=== PATIENT | female | born 1995 | race Caucasian/White ===

== ENCOUNTER → 2017-11-21 08:22 | Outpatient (CLI) | payer OTHER, SELFPAY | PROVIDERS: Visit Provider Obstetrics & Gynecology | DX: Z12.4 Encounter for screening for malignant neoplasm of cervix (principal) ==

== ENCOUNTER → 2022-07-22 | Outpatient (CLI) | payer OTHER, SELFPAY ==
[2022-07-29 14:53] LABS: HPV Reflexed? NOT INDICATED
== END | disposition home or self-care (01) ==
LOC: LABSPEC 13:07
PROVIDERS: Referring Provider Obstetrics & Gynecology; Visit Provider Obstetrics & Gynecology
DX: Z12.4 Encounter for screening for malignant neoplasm of cervix (principal)
CPT/HCPCS: 88175; G0145

== ENCOUNTER → 2022-12-11 | Outpatient (CLI) | payer OTHER, SELFPAY | END | disposition home or self-care (01) | LOC: PAVLAB 15:08 | PROVIDERS: Referring Provider Nurse Practitioner Women's Health; Visit Provider Nurse Practitioner Women's Health | DX: N91.2 Amenorrhea, unspecified (principal) | CPT/HCPCS: 36415; 84702; 86850; 86900; 86901 ==

== ENCOUNTER → 2022-12-13 | Outpatient (CLI) | payer OTHER, SELFPAY ==
[2022-12-13 10:51] LABS: hCG Titer Quant., Serum 36622 mIU/mL (1-3)
== END | disposition home or self-care (01) ==
LOC: PAVLAB 09:26
PROVIDERS: Referring Provider Obstetrics & Gynecology; Visit Provider Obstetrics & Gynecology
DX: N91.2 Amenorrhea, unspecified (principal)
CPT/HCPCS: 36415; 84702

== ENCOUNTER → 2022-12-31 | Outpatient (CLI) | payer OTHER, SELFPAY ==
[2023-01-03 00:07] LABS: Chlamydia By Nucleic Acid AMP Negative (Negative)
[2023-01-03 08:29] LABS: Gonococcus By Nucleic Acid AMP Negative (Negative)
== END | disposition home or self-care (01) ==
PROVIDERS: Visit Provider Obstetrics & Gynecology
DX: Z34.90 Encounter for supervision of normal pregnancy, unspecified, unspecified trimester (principal)
CPT/HCPCS: 87086; 87491; 87591

== ENCOUNTER → 2023-01-30 | Outpatient (CLI) | payer OTHER, SELFPAY ==
[2023-01-30 11:01] LABS: Absolute Lymphocyte Count 2.04 X10^3/uL (0.83-4.51); Absolute Neutrophil Count 5.3 X10^3/uL (2.0-7.7); Basophil# 0.02 X10^3/uL; Basophil% 0.2 % (0-1); Eosinophil# 0.04 X10^3/uL; Eosinophils% 0.5 % (0-5); Hematocrit 38.9 % (37-47); Hemoglobin 13.5 g/dL (12.0-15.0); Lymphocyte # 2.04 X10^3/ul (0.83-4.51); Mean Corp Hgb Conc 34.7 g/dL (32-36); Mean Corpuscular Hgb 31.5 pg (27.0-32.0); Mean Corpuscular Volume 90.7 fL (81-99); Mean Platelet Vol. 9.1 fl (6.2-12.0); Monocyte# 0.69 X10^3/uL; Monocyte% 8.5 % (0-10); NRBC Flagged by Analyzer 0 % (0-5); Neutrophil # 5.33 X10^3/uL (2.7-7.7); Neutrophil % 65.3 % (47-70); Platelet Count 258 K/mm3 (150-450); RBC Distribution Width CV 12.8 % (11.6-14.6); RBC Distribution Width SD 41.9 fl (35.1-43.9); Red Blood Count 4.29 M/mm3 (4.2-5.4); White Blood Count 8.2 K/mm3 (4.4-11.0)
[2023-01-30 11:22] LABS: Glucose Challenge Gest 1H 50g 88 mg/dL (70-140)
[2023-01-30 12:06] LABS: HIV - WCH Non-Reactive (Nonreactive); Hepatitis B Surface Antigen Non-Reactive (Nonreactive); Hepatitis C Antibody Non-Reactive (Nonreactive); Rubella IgG Reactive (Nonreactive); Syphilis Antibodies Non-reactive
== END | disposition home or self-care (01) ==
LOC: PAVLAB 10:27
PROVIDERS: Referring Provider Obstetrics & Gynecology; Visit Provider Obstetrics & Gynecology
DX: O99.210 Obesity complicating pregnancy, unspecified trimester (principal)
CPT/HCPCS: 36415; 82950; 85025; 86703; 86762; 86780; 86803; 86850; 86900; 86901; 87340

== ENCOUNTER → 2023-05-13 | Outpatient (CLI) | payer OTHER, SELFPAY ==
[2023-05-13 13:17] LABS: Absolute Lymphocyte Count 1.53 X10^3/uL (0.83-4.51); Absolute Neutrophil Count 5.8 X10^3/uL (2.0-7.7); Basophil# 0.03 X10^3/uL; Basophil% 0.4 % (0-1); Eosinophil# 0.07 X10^3/uL; Eosinophils% 0.8 % (0-5); Hematocrit 38.3 % (37-47); Hemoglobin 12.9 g/dL (12.0-15.0); Lymphocyte # 1.53 X10^3/ul (0.83-4.51); Lymphocyte % 18.4 % (19-41); Mean Corp Hgb Conc 33.7 g/dL (32-36); Mean Corpuscular Hgb 31.9 pg (27.0-32.0); Mean Corpuscular Volume 94.8 fL (81-99); Mean Platelet Vol. 9.4 fl (6.2-12.0); Monocyte# 0.74 X10^3/uL; Monocyte% 8.9 % (0-10); NRBC Flagged by Analyzer 0 % (0-5); Neutrophil # 5.75 X10^3/uL (2.7-7.7); Neutrophil % 69.2 % (47-70); Platelet Count 232 K/mm3 (150-450); RBC Distribution Width CV 13.1 % (11.6-14.6); Red Blood Count 4.04 M/mm3 (4.2-5.4); White Blood Count 8.3 K/mm3 (4.4-11.0)
[2023-05-13 13:48] LABS: Glucose Challenge Gest 1H 50g 120 mg/dL (70-140)
[2023-05-13 14:20] LABS: HIV - WCH Non-Reactive (Nonreactive); Syphilis Antibodies Non-reactive
== END | disposition home or self-care (01) ==
LOC: LAB 12:29
PROVIDERS: Referring Provider Advanced Practice Midwife; Visit Provider Advanced Practice Midwife
DX: O44.42 Low lying placenta NOS or without hemorrhage, second trimester (principal); Z3A.00 Weeks of gestation of pregnancy not specified
CPT/HCPCS: 36415; 82950; 85025; 86703; 86780

== ENCOUNTER → 2023-07-11 | Outpatient (CLI) | payer OTHER, SELFPAY | END | disposition home or self-care (01) | PROVIDERS: Visit Provider Obstetrics & Gynecology | DX: O09.90 Supervision of high risk pregnancy, unspecified, unspecified trimester (principal); Z3A.00 Weeks of gestation of pregnancy not specified | CPT/HCPCS: 87081 ==

== ENCOUNTER 2023-07-21 16:26 | Outpatient (CLI) | payer OTHER, SELFPAY ==
[2023-07-21 16:57] VITALS: PULSE 75; O2SAT 98
[2023-07-21 16:59] VITALS: BP 131/81
[2023-07-21 17:00] VITALS: PULSE 74; O2SAT 97; BMI 41.5
--- NOTE | 2023-07-23 12:35 | OB.TRI.HP_ITS ---
HPI - General General Date of Admission: 07/21/23 Date of Service: 07/21/23 Chief Complaint: elevated BP HPI Narrative VANDANA MYERS, is a 27 F who presents at 38 weeks +2 with increased itching on palms on hands and soles of feet especially at night and in the morning. does resolve with elevating feet. is on day 6 of covid infection. +FM, no vb/ctx/lof. Maternal Data Information KALA Calculator Estimated Delivery Date Method Current WG Current Estimate 08/02/23 LMP (Certain) 38w 4d PFSH PFSH Medical History Anxiety Positive self-administered antigen test for COVID-19 Home Medications multivit-min no.71-iron fum 28 mg-folate no.1 1 mg-dha 300 mg capsule (PNV- [place]) 1 cap PO DAILY 12/27/22 [History Last Taken Unknown] famotidine 20 mg tablet (Pepcid AC) 20 mg PO BID PRN heartburn 07/21/23 [History Last Taken Unknown] Allergy/AdvReac Type Severity Reaction Status Date / Time No Known Allergies Allergy Verified 07/21/23 16:55 Family History Grandfather COPD (chronic obstructive pulmonary disease) CAD (coronary artery disease) Maternal Family history of brain aneurysm, Onset Age: 42 Paternal Grandmother Parkinson disease, Onset Age: 70 Maternal Surgical History S/P left knee surgery Social History adopted: No household members: spouse current occupational status: employed 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 current occupational exposures/hazards: No pets and animals: Yes pets and animals: dog(s) history of recent travel: Yes ([place] in October) out of state: Yes out of country: No sexually active: Yes Smoking Status: Never smoker alcohol intake: current alcohol intake frequency: holidays/special occasions only details: not while substance use type: does not use well-balanced diet: about half the time caffeine: No eating out: 1-3 times/week during the past year weight has: remained stable what type of physical activity do you participate in: aerobics frequency: 1-2 times per week duration: 45-60 minutes/day kalen/yazdanism: Mu-Ism seatbelt use: always do you feel safe at home: Yes 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: 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 [employer] History 1 Elective abortions Hx Para 0 Spontaneous abortions Hx # Term Pregnancies Ectopic pregnancies Hx # Pregnancies Multiple births # of living children Visit Details Expected Delivery Route/Plan Labor Preferences- CB/BF classes: scheduled labor support person: Eliseo labor intervention preferences: [] pain management options preferred: epidural cut cord/dad catch: maybe : yes PP control planned: discussed discussed possible routes of delivery and associated risks: [] special requests: [] Plans Covid status: vaccinated Flu vaccine: vaccinated 2021 Tdap vaccine: given Rhogam: na LARC form signed: yes movement and labor precautions reviewed. Problem list reviewed and updated with the most current plan of care details and appropriate orders placed. Relevant counseling for the gestational age provided. Continue routine care and follow up unless otherwise noted in visit notes/problem list details OB Flowsheet Initial Weight: Not Recorded Date -?-?-?--?-?-?-?-?-?-?-?-?- EGA Weight BP Urine Prot -?-?-?-?-?-?-?-?-?-?-?-?- Glucose FHR FuHt Pres Dilation -?-?-?-?-?-?-?-?-?-?-?-?- Effaced St Visit Note 12/31/22 -?-?-?-?-?-?-?-?-?-?-?-?- 9w 3d 173 lb 4 oz 114/79 -?-?-?-?-?-?-?-?-?-?-?-?- 180 -?-?-?-?-?-?-?-?-?-?-?-?- JV- single live IUP measuring 10 weeks 0 days, consistent with LMP. unsure about NIPT. 01/31/23 -?-?-?-?-?-?-?-?-?-?-?-?- 13w 6d 179 lb 6 oz 104/76 Nega tive -?-?-?-?-?-?-?-?-?-?-?-?- Negative 155 -?-?-?-?-?-?-?-?-?-?-?-?- SM- no vb crampi ng 02/28/23 -?-?-?-?-?-?-?-?-?-?-?-?- 17w 6d 191 lb 124/82 Negative -?-?-?-?-?-?-?-?-?-?-?-?- Negative 145 -?-?-?-?-?-?-?-?-?-?-?-?- JV- no lof, vagi nal bleeding, or cramping. 03/25/23 -?-?-?-?-?-?-?-?-?-?-?-?- 21w 3d 198 lb 4 oz 122/70 Nega tive -?-?-?-?-?-?-?-?-?-?-?-?- Negative 148 -?-?-?-?-?-?-?-?-?-?-?-?- -No Vb, LOF. D iscussed no FM related to anterior placenta. Does have low lying placenta also. 04/23/23 -?-?-?-?-?-?-?-?-?-?-?-?- 25w 4d 203 lb 2 oz 122/80 Nega tive -?-?-?-?-?-?-?-?-?-?-?-?- Negative 155 25 -?-?-?-?-?-?-?-?-?-?-?-?- Kw- +FM, No lof/ vb/ctx. discussed 28 week labs and US 05/14/23 -?-?-?-?-?-?-?-?-?-?-?-?- 28w 4d 207 lb 2 oz 112/72 Nega tive -?-?-?-?-?-?-?-?-?-?-?-?- Negative 148 28 -?-?-?-?-?-?-?-?--?-?-?-?- MH-No VB, LOF. G ood Fm. Normal 28 wk labs. Tdap, larc done 05/28/23 -?-?-?-?-?-?-?-?-?-?-?-?- 30w 4d 208 lb 4 oz 130/82 Nega tive -?-?-?-?-?--?-?-?-?-?-?-?- Negative 140 29 -?-?-?-?-?-?-?-?-?-?-?-?- lc- NO vb/ctx/lo f. good fm. no concerns. 06/11/23 -?-?-?-?-?-?-?-?-?-?-?-?- 32w 4d 211 lb 114/75 Negative -?-?-?-?-?-?-?-?-?-?-?-?- Negative 144 32 -?-?-?-?-?-?-?-?-?-?-?-?- JV- no spotting or cramping , + FM. feeling nauseated an having heartburn, JV- no spotting or cramping , + FM. feeling nauseated an having heartburn. will try pepcid. 06/25/23 -?-?-?-?-?-?-?-?-?-?-?-?- 34w 4d 216 lb 4 oz 124/86 Nega tive -?-?-?-?-?-?-?-?-?-?-?-?- Negative 150 34 -?-?-?-?-?-?-?-?-?-?-?-?- LC- no vb/ctx/lo f/ good fm. no concerns. 07/11/23 -?-?-?-?-?-?-?-?-?-?-?-?- 36w 6d 223 lb 6 oz 110/82 Nega tive -?-?-?-?-?-?-?-?-?-?-?-?- Negative 140 37 Cephalic 1 -?-?-?-?-?-?-?-?-?-?-?-?- 60 -3 SM- no vb lof good fm no regular ctx 07/18/23 -?-?-?-?-?-?-?-?-?-?-?-?- 37w 6d 226 lb 8 oz 119/84 Nega tive -?-?-?-?-?-?-?-?-?-?-?-?- Negative 145 38 Cephalic 1 .5 -?-?-?-?-?-?-?-?-?-?-?-?- 70 -2 SM- no vb lof good fm no regular ctx 07/21/23 -?-?-?-?-?-?-?-?-?-?-?-?- 38w 2d 229 lb 133/85 133/85 -?-?-?-?-?-?-?-?-?-?-?-?- 140 -?-?-?-?-?-?-?-?-?-?-?-?- LC- hands and fe et itching especially at night, occ in AM. decreases after puts feet up. has not used medications to assist. will send to for CMP and bile acids with NST for r/o cholestasis. if elevated LFT plan for IOL, c/w agrees with POC. Physical Exam GI Palpation: soft Neuro Deep Tendon Reflexes: Rt Patellar (L4): 2+ and Lt Patellar (L4): 2+ NST FHR Rate Baby A Baseline: 140 Variability:: Moderate Accelerations:: 15 x 15 Decelerations:: None NST Reactive:: Yes FHR Category:: Category I Assessment & Plan (1) Pruritic condition: COMMENT: without rash LFt normal bile acids pending follow up in office, obtain NST, treat like cholestasis until bile acids result. PLAN: Patient presents for triage evaluation secondary to itching on palms/feet. r/o cholestasis. if elevated LFt would consider IOL. FHT: Moderate variability reactive no decelerations category I tracing [place]: Contractions Assessment and plan: Reactive NST, reassuring maternal and status patient discharged to home to follow-up in office, since normal LFT, will hold on IOL and do NST in office end of this week until bile acids result and treat as mild cholestasis and repeat lft/bile acids weekly. agrees with plan. See problem list details for additional plan information. Charges/Coding Procedures Urinary/Genital [id number]: 39635-32 non-stress test Interp
[2023-07-24 12:09] LABS: Bile Acids 8.6 umol/L (0.0-10.0)
== END 2023-07-21 18:10 | disposition home or self-care (01) ==
LOC: WPOUT 16:31 → WP 16:39
PROVIDERS: Referring Provider Registered Nurse; Visit Provider Registered Nurse
DX: O99.713 Diseases of the skin and subcutaneous tissue complicating pregnancy, third trimester (principal); Z3A.38 38 weeks gestation of pregnancy; L29.9 Pruritus, unspecified; O99.891 Other specified diseases and conditions complicating pregnancy; R03.0 Elevated blood-pressure reading, without diagnosis of hypertension; O98.513 Other viral diseases complicating pregnancy, third trimester; U07.1 COVID-19
CPT/HCPCS: 36415; 59025; 59050; 82239; 99221; G0378

== ENCOUNTER → 2023-07-25 | Outpatient (CLI) | payer OTHER, SELFPAY ==
--- NOTE | 2023-07-25 14:13 | US_ITS ---
STUDY: OBSTETRICAL ULTRASOUND - BIOPHYSICAL PROFILE REASON FOR EXAM: Female, 27 years old uterine size date discrepancy LMP: PRIOR ULTRASOUND: None. TECHNIQUE: Transabdominal TECHNICAL QUALITY: Adequate. FINDINGS: There is a single intrauterine fetus. The fetus is in a cephalic presentation. There is demonstrated cardiac activity with a heart rate of 132 bpm. There is a normal amniotic fluid volume. The largest amniotic fluid pocket measures 5.94 cm. The amniotic fluid index (JOURDAN) is 15.9 cm. The placenta is anterior There are Grade 2 placental changes. Age by LMP: 38 weeks, 6 days. KALA by LMP: August 02, 2023. BIOPHYSICAL PROFILE: Breathing Movements (FBM): 2 Gross Body Movements (GBM): 2 Tone (FT): 2 Amniotic Fluid Volume (AFV): 2 TOTAL SCORE: 8 / 8 IMPRESSION: Normal biophysical profile of 8/8. Electronically Signed: Juan C Tolbert MD at 19:20 EDT , STUDY: SECOND AND THIRD TRIMESTER OBSTETRICAL ULTRASOUND REASON FOR EXAM: Female, 27 years old uterine size date discrepancy LMP: TECHNIQUE: Transabdominal TECHNICAL QUALITY: Adequate. PRIOR ULTRASOUND: None. FINDINGS: There is a single intrauterine fetus. The fetus is in a cephalic presentation. There is demonstrated cardiac activity with a heart rate of 132 bpm. There is a normal amniotic fluid volume. The largest amniotic fluid pocket measures 5.94 cm. The amniotic fluid index (JOURDAN) is 15.9 cm. The placenta is anterior and not low-lying There are Grade 2 placental changes.. The bilateral adnexal regions are nonvisualized due to bowel gas producing artifact BIOMETRY: BPD: 9.47 cm: 38 weeks, 4 days HC: 33.14 cm: 37 weeks, 5 days AC: 34.34 cm: 38 weeks, 2 days FL: 7.27 cm: 37 weeks, 1 days CI: 0.82 FL/BPD: 0.76 FL/HC: FL/AC: 0.21 HC/AC: 0.97 age by current US: 38 weeks, 1 days. KALA by current US: August 07, 2023. Estimated weight: 3424 grams, +/- 514 grams, 51 %. age by LMP: 38 weeks, 6 days. KALA by prior US: August 02, 2023. ANATOMY: Not studied at this time due to age US/Biophysical Prof W/O Non Stres IMPRESSION: Viable intrauterine gestation approximately 38-39 weeks gestational age No significant abnormality Electronically Signed: Juan C Tolbert MD at 19:24 EDT ,
[2023-07-25 14:55] LABS: ALB/GLOB Ratio 0.7 RATIO (0.9-2.4); AST(SGOT) 24 U/L (15-37); Alanine Aminotransfer ALT/SGPT 25 U/L (13-56); Albumin, Serum 2.6 g/dL (3.2-5.0); Alkaline Phosphatase 174 U/L (45-117); Anion Gap 6 (5-15); BUN 8 mg/dL (7-18); BUN/Creat Ratio 11.2 RATIO (10-20); Calcium,Total 9.5 mg/dL (8.5-10.1); Chloride 107 mmol/L (98-107); Creatinine, Serum 0.71 mg/dL (0.55-1.02); EST Glomerular Filtration Rate 104 mL/min (>60); Est Glom Filt Rate - Afr Amer 126 mL/min (>60); Globulin 3.9 g/dL (2.2-4.2); Glucose 74 mg/dL (74-106); Potassium 3.7 mmol/L (3.5-5.1); Protein, Total 6.5 g/dL (6.4-8.2); Sodium Level 136 mmol/L (136-145)
== END | disposition home or self-care (01) ==
PROVIDERS: Referring Provider Obstetrics & Gynecology; Visit Provider Obstetrics & Gynecology
DX: O26.843 Uterine size-date discrepancy, third trimester (principal); O99.713 Diseases of the skin and subcutaneous tissue complicating pregnancy, third trimester; L29.9 Pruritus, unspecified; Z3A.00 Weeks of gestation of pregnancy not specified
CPT/HCPCS: 36415; 76816; 76819; 80053

== ENCOUNTER 2023-07-26 05:36 | Inpatient (IN) | payer OTHER, SELFPAY ==
[2023-07-26] VITALS (72 sets, daily range): BP systolic 107–151; BP diastolic 57–94; PULSE 58–135; RESP 15–17; TEMP 36.3–37.1; O2SAT 79–100; BMI 43.1
[2023-07-26] MEDS: Lactated Ringers 1,000 ML 50 ML IV (06:15)
[2023-07-26 06:37] LABS: Absolute Lymphocyte Count 2.15 X10^3/uL (0.83-4.51); Absolute Neutrophil Count 5.9 X10^3/uL (2.0-7.7); Basophil# 0.04 X10^3/uL; Basophil% 0.4 % (0-1); Eosinophil# 0.06 X10^3/uL; Eosinophils% 0.7 % (0-5); Hematocrit 40.3 % (37-47); Hemoglobin 13.8 g/dL (12.0-15.0); Lymphocyte # 2.15 X10^3/ul (0.83-4.51); Mean Corp Hgb Conc 34.2 g/dL (32-36); Mean Corpuscular Hgb 31.3 pg (27.0-32.0); Mean Corpuscular Volume 91.4 fL (81-99); Mean Platelet Vol. 10.2 fl (6.2-12.0); Monocyte# 0.67 X10^3/uL; Monocyte% 7.5 % (0-10); NRBC Flagged by Analyzer 0 % (0-5); Neutrophil # 5.93 X10^3/uL (2.7-7.7); Neutrophil % 66.4 % (47-70); Platelet Count 294 K/mm3 (150-450); RBC Distribution Width CV 13.2 % (11.6-14.6); RBC Distribution Width SD 43.1 fl (35.1-43.9); Red Blood Count 4.41 M/mm3 (4.2-5.4); White Blood Count 8.9 K/mm3 (4.4-11.0)
[2023-07-26 08:31] LABS: Syphilis Antibodies Non-reactive
--- NOTE | 2023-07-26 09:54 | HP.PCM.OB_ITS ---
HPI - General General Date of Admission: 07/26/23 HPI Narrative VANDANA MYERS, is a 27 F who presents IAL vertex 3 cm initially made change to 4 clear LOF 330 am prefers minimal intervention Maternal Data Information KALA Calculator Estimated Delivery Date Method Current WG Current Estimate 08/02/23 LMP (Certain) 39w 0d PFSH PFSH Medical History Anxiety Positive self-administered antigen test for COVID-19 Home Medications multivit-min no.71-iron fum 28 mg-folate no.1 1 mg-dha 300 mg capsule (PNV- [place]) 1 cap PO DAILY 12/27/22 [History Last Taken 07/25/23] famotidine 20 mg tablet (Pepcid AC) 20 mg PO BID PRN heartburn 07/21/23 [History Last Taken 07/25/23] Allergy/AdvReac Type Severity Reaction Status Date / Time No Known Allergies Allergy Verified 07/26/23 05:52 Family History Grandfather COPD (chronic obstructive pulmonary disease) CAD (coronary artery disease) Maternal Family history of brain aneurysm, Onset Age: 42 Paternal Grandmother Parkinson disease, Onset Age: 70 Maternal Surgical History S/P left knee surgery Social History adopted: No household members: spouse current occupational status: employed 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 current occupational exposures/hazards: No pets and animals: Yes pets and animals: dog(s) history of recent travel: Yes ([place] in October) out of state: Yes out of country: No sexually active: Yes Smoking Status: Never smoker alcohol intake: current alcohol intake frequency: holidays/special occasions only details: not while substance use type: does not use well-balanced diet: about half the time caffeine: No eating out: 1-3 times/week during the past year weight has: remained stable what type of physical activity do you participate in: aerobics frequency: 1-2 times per week duration: 45-60 minutes/day kalen/pentecostal: Baptist seatbelt use: always do you feel safe at home: Yes 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: 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 [employer] History 1 Elective abortions Hx Para 0 Spontaneous abortions Hx # Term Pregnancies Ectopic pregnancies Hx # Pregnancies Multiple births # of living children Visit Details Expected Delivery Route/Plan Labor Preferences- CB/BF classes: scheduled labor support person: Eliseo labor intervention preferences: [] pain management options preferred: epidural cut cord/dad catch: maybe : yes PP control planned: discussed discussed possible routes of delivery and associated risks: [] special requests: [] Plans Covid status: vaccinated Flu vaccine: vaccinated 2021 Tdap vaccine: given Rhogam: na LARC form signed: yes movement and labor precautions reviewed. Problem list reviewed and updated with the most current plan of care details and appropriate orders placed. Relevant counseling for the gestational age provided. Continue routine care and follow up unless otherwise noted in visit notes/problem list details OB Flowsheet Initial Weight: Not Recorded Date -?-?-?-?-?-?-?-?-?-?-?-?- EGA Weight BP Urine Prot -?-?-?-?-?-?-?-?-?-?-?-?- Glucose FHR FuHt Pres Dilation -?-?-?-?-?-?-?-?-?-?-?-?- Effaced St Visit Note 12/31/22 -?-?-?-?-?-?-?-?-?-?-?-?- 9w 3d 173 lb 4 oz 114/79 -?-?-?-?-?-?-?-?-?-?-?-?- 180 -?-?-?-?-?-?-?-?-?-?-?-?- JV- single live IUP measuring 10 weeks 0 days, consistent with LMP. unsure about NIPT. 01/31/23 -?-?-?-?-?-?-?-?-?-?-?-?- 13w 6d 179 lb 6 oz 104/76 Nega tive -?-?-?-?-?-?-?-?-?-?-?-?- Negative 155 -?-?-?-?-?-?-?-?-?-?-?-?- SM- no vb crampi ng 02/28/23 -?-?-?--?-?-?-?-?-?-?-?-?- 17w 6d 191 lb 124/82 Negative -?-?-?-?-?-?-?-?-?-?-?-?- Negative 145 -?-?-?-?-?-?-?-?-?-?-?-?- JV- no lof, vagi nal bleeding, or cramping. 03/25/23 -?-?-?-?-?-?-?-?-?-?-?-?- 21w 3d 198 lb 4 oz 122/70 Nega tive -?-?-?-?-?-?-?-?-?-?-?-?- Negative 148 -?-?-?-?-?--?-?-?-?-?-?-?- -No Vb, LOF. D iscussed no FM related to anterior placenta. Does have low lying placenta also. 04/23/23 -?-?-?-?-?-?-?-?-?-?-?-?- 25w 4d 203 lb 2 oz 122/80 Nega tive -?-?-?-?-?-?-?-?-?-?-?-?- Negative 155 25 -?-?-?-?-?-?-?-?-?-?-?-?- Kw- +FM, No lof/ vb/ctx. discussed 28 week labs and US 05/14/23 -?-?-?-?-?-?-?-?-?-?-?-?- 28w 4d 207 lb 2 oz 112/72 Nega tive -?-?-?-?-?-?-?-?-?-?-?-?- Negative 148 28 -?-?-?-?-?-?-?-?-?-?-?-?- -No VB, LOF. G ood Fm. Normal 28 wk labs. Tdap, larc done 05/28/23 -?-?-?-?-?-?-?-?-?-?-?-?- 30w 4d 208 lb 4 oz 130/82 Nega tive -?-?-?-?-?-?-?-?-?-?-?-?- Negative 140 29 -?-?-?-?-?-?-?-?-?-?-?-?- lc- NO vb/ctx/lo f. good fm. no concerns. 06/11/23 -?-?-?-?-?-?-?-?-?-?-?-?- 32w 4d 211 lb 114/75 Negative -?-?-?-?-?-?-?-?-?-?-?-?- Negative 144 32 -?-?-?-?-?-?-?-?-?-?-?-?- JV- no spotting or cramping , + FM. feeling nauseated an having heartburn, JV- no spotting or cramping , + FM. feeling nauseated an having heartburn. will try pepcid. 06/25/23 -?-?-?-?-?-?-?-?-?-?-?-?- 34w 4d 216 lb 4 oz 124/86 Nega tive -?-?-?-?-?-?-?-?-?-?-?-?- Negative 150 34 -?-?-?-?-?-?-?-?-?-?-?-?- LC- no vb/ctx/lo f/ good fm. no concerns. 07/11/23 -?-?-?-?-?-?-?-?-?-?-?-?- 36w 6d 223 lb 6 oz 110/82 Nega tive -?-?-?-?-?-?-?-?-?-?-?-?- Negative 140 37 Cephalic 1 -?-?-?-?-?-?-?-?-?-?-?-?- 60 -3 SM- no vb lof good fm no regular ctx 07/18/23 -?-?-?-?-?-?-?-?-?-?-?-?- 37w 6d 226 lb 8 oz 119/84 Nega tive -?-?-?-?-?-?-?-?-?-?-?-?- Negative 145 38 Cephalic 1 .5 -?-?-?-?-?-?-?-?-?-?-?-?- 70 -2 SM- no vb lof good fm no regular ctx 07/21/23 -?-?-?-?-?-?-?-?-?-?-?-?- 38w 2d 229 lb 133/85 133/85 -?-?-?-?--?-?-?-?-?-?-?-?- 140 -?-?-?-?-?-?-?-?-?-?-?-?- LC- hands and fe et itching especially at night, occ in AM. decreases after puts feet up. has not used medications to assist. will send to [facility] for CMP and bile acids with NST for r/o cholestasis. if elevated LFT plan for IOL, c/w SM agrees with POC. 07/25/23 -?-?-?-?-?-?-?-?-?-?-?-?- 38w 6d 227 lb 4 oz 132/82 Nega tive -?-?-?-?-?-?-?-?-?-?-?-?- Negative 120 36 Cephalic -?-?-?-?-?-?-?-?-?-?-?-?- SM- no vb lof go od fm no regular ctx still having some itching, hasn't changed. SM- no vb lof good fm no reg ular ctx still having some itching, hasn't changed. get growth us now and bpp due to low FH and pruritis. NST FHR Rate Baby A Baseline: 140 Variability:: Moderate Accelerations:: 15 x 15 Decelerations:: None NST Reactive:: Yes FHR Category:: Category I Uterine Activity:: q3-5 ROS Constitutional Constitutional: Reports systems reviewed and no addt'l complaints, except as documented ENT HEENT: Reports systems reviewed and no addt'l complaints, except as documented Cardiovascular Cardiovascular: Reports systems reviewed and no addt'l complaints, except as documented Respiratory/Chest Respiratory/Chest: Reports systems reviewed and no addt'l complaints, except as documented Gastrointestinal Gastrointestinal: Reports systems reviewed and no addt'l complaints, except as documented and nausea; Denies abdominal pain Genitourinary Genitourinary: Reports systems reviewed and no addt'l complaints, except as documented, contractions Details: present and frequency (regular ) and movement Details: present Musculoskeletal Musculoskeletal: Reports systems reviewed and no addt'l complaints, except as documented Integumentary Integumentary: Reports as per HPI Neurologic Neurologic: Reports systems reviewed and no addt'l complaints, except as documented Endocrine Endocrinology: Reports systems reviewed and no addt'l complaints, except as documented Vital Signs Vital Signs Vital Signs: 07/26/23 05:50 07/26/23 05:50 07/26/23 05:49 Temperature Temperature Source Temporal Pulse Rate 84 Blood Pressure 136/85 H BP Systolic 136 BP Diastolic 85 Pulse Ox 07/26/23 05:49 07/26/23 05:53 07/26/23 05:53 Temperature 97.8 F Temperature Source Pulse Rate 97 Blood Pressure BP Systolic BP Diastolic Pulse Ox 98 07/26/23 07:17 07/26/23 07:17 07/26/23 07:17 Temperature Temperature Source Pulse Rate 80 Blood Pressure 120/85 H BP Systolic 120 BP Diastolic 85 Pulse Ox 98 07/26/23 07:17 07/26/23 08:20 07/26/23 08:20 Temperature 98.1 F Temperature Source Pulse Rate 58 L Blood Pressure 107/66 BP Systolic 107 BP Diastolic 66 Pulse Ox 07/26/23 08:20 07/26/23 08:20 07/26/23 09:29 Temperature 98.8 F Temperature Source Temporal Pulse Rate Blood Pressure 131/80 H BP Systolic 131 BP Diastolic 80 Pulse Ox 07/26/23 09:29 07/26/23 09:30 07/26/23 09:30 Temperature Temperature Source Pulse Rate 78 87 Blood Pressure BP Systolic BP Diastolic Pulse Ox 99 07/26/23 09:29 07/26/23 09:29 Temperature 98.3 F Temperature Source Temporal Pulse Rate Blood Pressure BP Systolic BP Diastolic Pulse Ox Weight Weight: 235 lb 14.314 oz Body Mass Index (BMI) 43.1 Physical Exam Const alert, oriented x3 and healthy appearing Constitutional Narrative: uncomfortable with contractions HEENT normocephalic and moist oral mucous membranes Head and Scalp: atraumatic Neck full ROM, no lymphadenopathy, supple and thyroid normal General: trachea midline Thyroid: thyroid normal Lymph Lymphatic: no lymphadenopathy noted Chest inspection of chest normal Resp normal respiratory effort Cardio regular rate GI normal to inspection, nondistended, normoactive bowel sounds, soft to palpation and non-tender Inspection: gravid external exam normal Bimanual Exam - Vag & Uterus: uterus non-tender Manual OB Exam: estimated gestational size appropriate, presentation cephalic, dilated, effaced and station Extremity normal to inspection General Extremity: Negative for edema Skin no rashes or lesions noted Neuro deep tendon reflexes 2+ bilaterally Motor Exam: strength 5/5 throughout and clonus absent Psych mental status grossly normal Labs Labs Labs: Blood Type O POSITIVE Antibody Screen NEGATIVE Hct 40.3 % (37-47) Hgb 13.8 g/dL (12.0-15.0) Syphilis Total Ab Non-reactive Rubella IgG Antibody Reactive (Nonreactive) Hep Bs Antigen Non-Reactive (Nonreactive) Chlamydia DNA (HEAVENLY) Negative (Negative) Neisseria gonorrhoeae DNA (HEAVENLY) Negative (Negative) HIV 1&2 Antibody Non-Reactive (Nonreactive) Glucose 1 Hr 50 gm 120 mg/dL (70-140) Miscellaneous Test Assessment & Plan (1) Uterine size-date discrepancy, third trimester: COMMENT: growth us bpp (2) Pruritic condition: COMMENT: without rash LFt normal bile acids pending follow up in office, obtain NST, treat like cholestasis until bile acids result. (3) Positive self-administered antigen test for COVID-19: COMMENT: 81 ASA daily (4) Supervision of high-risk : QUALIFIERS: Trimester: third trimester Qualified Code(s): O09.93 - Supervision of high risk , unspecified, third trimester COMMENT: PRR , KALA 08/02/23, girl [place] Eliseo (5) : QUALIFIERS: Weeks of gestation: 38 weeks Qualified Code(s): Z3A.38 - 38 weeks gestation of COMMENT: GBS negative. declined NIPT & Carrier testing,nl anatomy, Nml glucose, (6) Anxiety: COMMENT: no meds, stable; walking daily has helped. PLAN: Plan Patient presents IAL, plan expectant management for , pitocin if needed. Pain management: minimal intervention preferred. GBS neg. Management of any complications: none I have reviewed the [facility] and made any clinically relevant updates.
--- NOTE | 2023-07-26 10:00 | NURSING ---
provider notified of bmi greater than 40. provider states to proceed with intermittent auscultation.
[2023-07-26] MEDS: LACTATED RINGERS 500 ML 999 ML IV (12:45)
[2023-07-26] MEDS: fentaNYL-bupivacaine (epidural) 100 ML BAG EPIDURAL (14:01)
--- NOTE | 2023-07-26 16:34 | OP.PCM_ITS ---
Assessment & Plan (1) Uterine size-date discrepancy, third trimester: COMMENT: growth us bpp (2) Pruritic condition: COMMENT: without rash LFt normal bile acids pending follow up in office, obtain NST, treat like cholestasis until bile acids result. (3) Positive self-administered antigen test for COVID-19: COMMENT: 81 ASA daily (4) Supervision of high-risk : QUALIFIERS: Trimester: third trimester Qualified Code(s): O09.93 - Supervision of high risk , unspecified, third trimester COMMENT: PRR , KALA 08/02/23, girl Swapna Eliseo (5) : QUALIFIERS: Weeks of gestation: 38 weeks Qualified Code(s): Z3A.38 - 38 weeks gestation of COMMENT: GBS negative. declined NIPT & Carrier testing,nl anatomy, Nml glucose, (6) Anxiety: COMMENT: no meds, stable; walking daily has helped. (7) Vaginal delivery: COMMENT: SM 39 IAL girl [facility] Maternal Data Information KALA Calculator Estimated Delivery Date Method Current WG Current Estimate 08/02/23 LMP (Certain) 39w 0d Vaginal Delivery Operative Information Date of Procedure: 07/26/23 Pre-Operative Diagnosis: see a/p diagnoses Post-Operative Diagnosis: same Surgery / Procedure Performed: Spontaneous Vaginal Delivery Type of Anesthesia: Epidural Special Medications: none Estimated Blood Loss: 400 Fluids Replaced: crystalloid Findings Description of Procedure: Patient began pushing and delivered the head in the NATALIYA presentation. The head was delivered atraumatically . The anterior and posterior shoulders delivered without complication followed by the rest of the infant and the infant was placed on the maternal abdomen. Delayed cord clamping was employed for approximately 60 seconds. Cord was clamped and cut and gentle traction was applied to the cord and the placenta delivered spontaneously immediately following it was noted to be intact with three-vessel cord. The perineum and vagina were inspected and noted to have a second degree perineal laceration which was repaired with 3-0 vicryl rapide. there was a stellate appearance to the repair so additional suture were needed but the repair was intact after completion with good integrity to the perineal body. EBL was 400. Patient and infant tolerated delivery well. Amniotic Fluid Description: Clear Placental Delivery Description: Spontaneous Placenta Disposition: [facility] Cord Vessel Description: 3 Vessels Cord Entanglement: None Delayed Cord Clamping: Yes Post Vaginal Delivery Medications Given After Delivery: IV Pitocin Episiotomy Description: None Complication Complications: None Procedures Urinary/Genital [id number]: [id number] Vaginal Delivery [facility]
--- NOTE | 2023-07-26 16:35 | PCM.DC ---
Discharge Instructions Diet Discharge Diet: No restrictions Activity Discharge Activity: Return to Normal Activity, May Not Drive (while taking narcotic pain medications.) and May Shower May resume sexual activity in: 4-6 weeks Dressing / Incision Call your doctor if your incision/area has: Continuous Slow Oozing, Sudden Increased Bleeding, Increased Pain/ Swelling, Increased Redness and Foul Smelling Discharge Follow Up Care Please Follow Up With: Veronica Patricio MD When: Call [phone] to make an appointment with your doctor in 6 weeks. If you had elevated blood pressure or 4th degree laceration, you will need to be seen in 2 weeks. Test Results: Test results from this visit will be discussed in further detail at your follow-up appointment, if applicable. Discharge Plan Admission Admit Date/Time: 07/26/23 05:36 Attending Provider: Veronica Patricio Primary Care Provider: Care PhysicianLatanya Primary Discharge Orders/Prescriptions Prescriptions: No Action PNV-[place] 28-1-300 mg capsule 1 cap PO DAILY famotidine [Pepcid AC] 20 mg tablet 20 mg PO BID PRN (Reason: heartburn) Referrals / Follow Up: Care Physician,No Primary [Primary Care Provider] - Disposition Disposition (needs filled in before D/C Order can be placed): Home, Self Care
[2023-07-26] MEDS: Oxytocin 10 UNITS/ML Vial IM (16:58)
[2023-07-26] MEDS: Oxytocin 15 Units/NS 250ml 15 UNITS/250 ML IV.SOLN 83 UNITS IV (16:59)
[2023-07-26] MEDS: Lactated Ringers 1,000 ML 999 ML IV (18:44)
[2023-07-27] VITALS (10 sets, daily range): BP systolic 109–132; BP diastolic 61–84; PULSE 74–93; RESP 15–16; TEMP 36.3–36.6; O2SAT 97–100
[2023-07-27] MEDS: Benzocaine/Lanolin/Aloe Vera 1 SPRAY EACH TOPICAL ×2 (05:23→11:25)
[2023-07-27] MEDS: Acetaminophen 500 MG Tablet 1000 MG PO (05:34)
--- NOTE | 2023-07-27 10:46 | PN.OBGYN_ITS ---
Subjective Subjective Patient doing well without complaints. Tolerating PO. Ambulating and voiding without difficulty. feeding well. Denies chest pain, shortness of breath, calf pain/swelling, fevers, chills, lightheadedness. Objective Data Objective Data Vital Signs: Vital Signs Temp Pulse Resp BP Pulse Ox O2 Del Method 97.4 F L 88 16 110/71 98 Room Air 07/27/23 08:11 07/27/23 08:11 07/27/23 08:11 07/27/23 08:11 07/27/23 08:11 07/27/23 08:11 Oxygen Delivery Method Room Air Weight: 235 lb 14.314 oz Body Mass Index (BMI) 43.1 Intake & Output: Intake and Output for Last 24 Hours 07/25/23 07/26/23 07/27/23 23:59 23:59 23:59 Intake Total 2120.00 / 2120.00 Output Total 750 / 750 400 / 400 Balance 1370.00 / 1370.00 -400 / -400 Lab / Micro Data 07/26/23 06:15 ROS Constitutional Constitutional: Reports systems reviewed and no addt'l complaints, except as documented Cardiovascular Cardiovascular: Reports systems reviewed and no addt'l complaints, except as documented Respiratory/Chest Respiratory/Chest: Reports systems reviewed and no addt'l complaints, except as documented Gastrointestinal Gastrointestinal: Reports systems reviewed and no addt'l complaints, except as documented Physical Exam Const alert, oriented x3 and no apparent distress HEENT Head and Scalp: atraumatic Resp normal respiratory effort GI soft to palpation and non-tender Bimanual Exam - Vag & Uterus: uterus non-tender Uterus Palpation: uterus fundus firm (below Umbilicus) Assessment & Plan (1) Vaginal delivery: COMMENT: SM 39 IAL girl [facility] PLAN: Plan s/p PPD # 1 1. routine post delivery care 2. breast feeding- support given 3. rh positive 4. rubella immune
[2023-07-27] MEDS: Influenza Virus Vac Quad 23-24 60 MCG/0.5 ML SYRINGE IM (10:55)
[2023-07-27] MEDS: Naproxen 500 MG Tablet PO (10:55)
[2023-07-28 02:30] VITALS: BP 124/69; PULSE 90
[2023-07-28 02:35] VITALS: BP 124/69; PULSE 104; RESP 16; TEMP 36.4; O2SAT 98
[2023-07-28 07:46] VITALS: BP 118/74; PULSE 81
[2023-07-28 07:49] VITALS: BP 114/74; PULSE 81; RESP 16; TEMP 36.3
--- NOTE | 2023-07-28 08:53 | PN.OBGYN_ITS ---
Subjective Subjective Patient doing well without complaints. Tolerating PO. Ambulating and voiding without difficulty. Feeding well. Denies chest pain, shortness of breath, calf pain/swelling, fevers, chills, lightheadedness. Objective Data Objective Data Vital Signs: Vital Signs Temp Pulse Resp BP Pulse Ox O2 Del Method 97.4 F L 81 16 114/74 98 Room Air 07/28/23 07:49 07/28/23 07:49 07/28/23 07:49 07/28/23 07:49 07/28/23 02:35 07/28/23 07:49 Oxygen Delivery Method Room Air Weight: 235 lb 14.314 oz Body Mass Index (BMI) 43.1 Intake & Output: Intake and Output for Last 24 Hours 07/26/23 07/27/23 07/28/23 23:59 23:59 23:59 Intake Total 2120.00 / 2120.00 Output Total 750 / 750 400 / 400 Balance 1370.00 / 1370.00 -400 / -400 Lab / Micro Data 07/26/23 06:15 Physical Exam Const alert, oriented x3 and no apparent distress HEENT Head and Scalp: atraumatic Resp normal respiratory effort GI soft to palpation and non-tender Bimanual Exam - Vag & Uterus: uterus non-tender Uterus Palpation: uterus fundus firm (below Umbilicus) Assessment & Plan (1) Vaginal delivery: COMMENT: JESSICA 39 IAL girl [facility] PLAN: s/p PPD # 2 1. routine post delivery care 2. breast feeding- support given 3. rh positive 4. rubella immun 5.d/c home today
[2023-07-28 13:05] VITALS: BP 123/79; PULSE 81; RESP 16; TEMP 36.8
[2023-07-28 13:07] VITALS: BP 123/79; PULSE 81
== END 2023-07-28 13:40 | disposition home or self-care (01) | DRG 807 ==
LOC: WPOUT 05:40 → WP 05:41 → WPOUT 05:50 → WP 05:50
PROVIDERS: Admitting Provider Obstetrics & Gynecology; Referring Provider Obstetrics & Gynecology; Visit Provider Obstetrics & Gynecology
DX: O26.843 Uterine size-date discrepancy, third trimester (principal); Z37.0 Single live birth; O42.92 Full-term premature rupture of membranes, unspecified as to length of time between rupture and onset of labor; O70.1 Second degree perineal laceration during delivery; Z3A.39 39 weeks gestation of pregnancy; Z86.16 Personal history of COVID-19; Z23 Encounter for immunization
CPT/HCPCS: 59025; 59050; 80053; 85025; 86780; 86850; 86900; 86901; 99221; J7120; 90686; G0378

== ENCOUNTER → 2023-11-07 | Outpatient (CLI) | payer OTHER, SELFPAY ==
--- NOTE | 2023-11-07 14:07 | US_ITS ---
STUDY: ULTRASOUND OF THE FEMALE PELVIS - COMPLETE REASON FOR EXAM: Female, 27 years old. IUD CHECK LMP: October 27, 2023. TECHNIQUE: Transvaginal TECHNICAL QUALITY: Adequate. COMPARISON: None. FINDINGS: The uterus is anteverted and is in a midline position. The uterus measures 5.6 cm x 4.9 cm x 3.2 cm. Normal uterine cervix. The endometrium measures 4.4 mm in thickness, and is hyperechoic. There is no demonstrated endometrial mass. There is no demonstrated myometrial mass. I.U.D. - The patient does have an I.U.D. . The IUD is in the fundal portion of the endometrium. The right ovary is visualized. The right ovary measures 3.5 cm x 3.4 cm x 2.5 cm. There is a dominant 1.4 cm x 1.5 cm x 1.3 cm follicle. There is no visualized right adnexal mass or complex lesion. There is normal arterial and normal venous vascularity. The left ovary is visualized. The left ovary measures 2.4 cm x 1.6 cm x 1.9 cm. There is no left ovarian cyst or ovarian mass. There is no visualized left adnexal mass or complex lesion. There is normal arterial and normal venous vascularity. There is minimal fluid in the cul-de-sac. US/Transvaginal Non- IMPRESSION: The IUD is within the fundal portion of the endometrium. Right ovarian follicle. Electronically Signed: Kurt Mcgovern MD at 15:24 EST ,
--- OUTSIDE RECORDS SUMMARY | 2023-11-07 15:22 | XMS RPT_ITS | CCD ---
Author Name Unknown Address [address] [place] [address] Organization [facility] Care Team Providers Care Director Of Online Merchandising Name Role Phone NGHIA HEREDIAEREYUDY LUGO Unavailable Unavaila ble YAN, [facility] Unavailable Unavaila ble YAN, [facility] Unavailable Unavaila ble Unavailable Primary Care Provider KOKI Haywood Attending Unavailable NO PRIMARY CARE, Primary Care Unavailable NICHOLAS RIVERA Referring KOKI Haywood Attending Unavailable NO PRIMARY CARE, Primary Care Unavailable NICHOLAS RIVERA Referring NICHOLAS Contreras Referring KOKI Haywood Attending Unavailable NO PRIMARY CARE, Primary Care Unavailable Medications Completed/Discontinued Medications Medication Drug Class(es) Dates Sig (Normalized) Sig (Original) levonorgestrel 0.042361 mg/hr intrauterine system (2 sources) Progestin, Progestin-containin g Intrauterine Device levonorgestrel (MIRENA) 20 mcg/24 hr (5 years) IUD 1 Each by INTRAUTERINE route one time only. 0 Active Problems Active Problems Problem Classification Problem Date Documented Da te Episodic/Chronic Anxiety disorders (2 sources) Anxiety; Translations: [Anxiety disorder, unspecified] Onset: 08-13-2021 08-13-2021 Chronic Menstrual disorders (2 sources) Dysmenorrhea; Translations: [Dysmenorrhea, unspecified] Onset: 07-27-2012 07-27-2012 Chronic Past or Other Problems Problem Classification Problem Date Documented Da te Episodic/Chronic Other non-traumatic joint disorders (2 sources) Swelling of knee joint; Translations: [Effusion, left knee] Onset: 06-15-2021 06-15-2021 Episodic Other non-traumatic joint disorders (2 sources) Pain in left knee; Translations: [Pain in joint, lower leg] Onset: 06-15-2021 06-15-2021 Episodic Sprains and strains (4 sources) Sprain of ankle; Translations: [Sprain of unspecified ligament of unspecified ankle, initial encounter] Onset: 05-02-2010 05-02-2010 Episodic Results Test Name Value Interpretation Reference Range Facil ity Encounters Encounter Date Encounter Type Care Provider Facility Start: 05-15-2023 End: 05-15-2023 ambulatory KOKI العلي [facility] Start: 03-27-2023 End: 03-27-2023 ambulatory NICHOLAS RIVERA [facility] Start: 03-11-2023 End: 03-11-2023 ambulatory KOKI العلي [facility] Start: 03-22-2022 End: 03-22-2022 Patient encounter procedure Nina Babin MD Work Phone: [facility] Procedures Date Procedure Procedure Detail Performing Clinician Start: 09-04-2021 History of operative procedure on knee S/P left knee arthroscopically-assisted anterior cruciate ligament reconstruction with quintuple stranded hamstring autograft, partial lateral meniscectomy Tima Bowden PT Work Phone: History of operative procedure on knee S/P left knee arthroscopically-assisted anterior cruciate ligament reconstruction with quintuple stranded hamstring autograft, partial lateral meniscectomy Nina Babin MD Work Phone: Plan of Treatment Date Care Activity Detail Author Start: 06-27-2022 Influenza vaccination INFLUENZA (Sea son Ended) [facility] Start: 08-25-2018 Urine microalbumin profile DTA P,TDAP,TD (7 - Td or Tdap) [facility] Start: 2016 PAP TESTING PAP TESTING [facility] Start: 2013 HEPATITIS C SCREENING HEPATITIS C ID SOFIA [facility] Start: 2013 HIV SCREENING HIV SCREENING [facility] Start: 2009 PEDS TO ADULT TRANSI TION ANNUAL ASSESSMENT PEDS TO ADULT TRANSITION ANNUAL ASSESSMENT [facility] Start: 2007 Adult depression scr eening assessment DEPRESSION SCREENING [facility] Start: 2007 PEDS TO ADULT TRANSI TION INITIAL DISCUSSION PEDS TO ADULT TRANSITION INITIAL DISCUSSION [facility] Immunizations Immunization Date Immunization Notes Care Provider Chris ravi 04-21-2013 hepatitis A vaccine, unspecified formulation Tima Golias PT Work Phone: [facility] 04-21-2013 Meningococcal, MCV4, unspecified conjugate formulation(groups A, C, Y and W-135) Tima Golias PT Work Phone: [facility] 07-27-2012 human papilloma viru s vaccine, quadrivalent Tima Golias PT Work Phone: [facility] 09-10-2011 human papilloma viru s vaccine, quadrivalent Tima Golias PT Work Phone: [facility] Work Phone: 09-10-2011 influenza virus vaccine, live, attenuated, for intranasal use Tima Golias PT Work Phone: [facility] Work Phone: 04-18-2011 human papilloma viru s vaccine, quadrivalent Tima Golias PT Work Phone: [facility] Work Phone: 08-14-2009 influenza virus vaccine, live, attenuated, for intranasal use Tima Golias PT Work Phone: [facility] 08-25-2008 influenza virus vaccine, live, attenuated, for intranasal use Tima Golias PT Work Phone: [facility] Work Phone: 08-25-2008 Meningococcal, MCV4, unspecified conjugate formulation(groups A, C, Y and W-135) Tima Golias PT Work Phone: [facility] Work Phone: 08-25-2008 tetanus toxoid, redu moses diphtheria toxoid, and acellular pertussis vaccine, adsorbed Tima Golias PT Work Phone: [facility] Work Phone: 05-14-2001 diphtheria, tetanus toxoids and pertussis vaccine Tima Golias PT Work Phone: [facility] Work Phone: 05-14-2001 measles, mumps and rubella virus vaccine Tima Golias PT Work Phone: [facility] Work Phone: 05-14-2001 poliovirus vaccine, inactivated Tima Golias PT Work Phone: [facility] Work Phone: 10-27-1999 Chicken Pox (disease) Tima Golias PT Work Phone: [facility] 05-26-1997 diphtheria, tetanus toxoids and pertussis vaccine Tima Golias PT Work Phone: [facility] Work Phone: 05-26-1997 haemophilus influenz ae type b vaccine, HbOC conjugate Tima Golias PT Work Phone: [facility] Work Phone: 05-26-1997 measles, mumps and rubella virus vaccine Tima Golias PT Work Phone: [facility] Work Phone: 05-26-1997 poliovirus vaccine, inactivated Tima Golias PT Work Phone: [facility] Work Phone: 08-26-1996 hepatitis B vaccine, pediatric or pediatric/adolescent dosage Tima Golias PT Work Phone: [facility] Work Phone: 05-26-1996 diphtheria, tetanus toxoids and pertussis vaccine Tima Golias PT Work Phone: [facility] Work Phone: 05-26-1996 haemophilus influenz ae type b vaccine, HbOC conjugate Tima Golias PT Work Phone: [facility] Work Phone: 03-25-1996 diphtheria, tetanus toxoids and pertussis vaccine Tima Golias PT Work Phone: [facility] Work Phone: 03-25-1996 haemophilus influenz ae type b vaccine, HbOC conjugate Tima Golias PT Work Phone: [facility] Work Phone: 03-25-1996 poliovirus vaccine, inactivated Tima Golias PT Work Phone: [facility] Work Phone: 01-22-1996 diphtheria, tetanus toxoids and pertussis vaccine Tima Golias PT Work Phone: [facility] Work Phone: 01-22-1996 haemophilus influenz ae type b vaccine, HbOC conjugate Tima Golias PT Work Phone: [facility] Work Phone: 01-22-1996 poliovirus vaccine, inactivated Tima Golias PT Work Phone: [facility] Work Phone: 1995 hepatitis B vaccine, pediatric or pediatric/adolescent dosage Tima Golias PT Work Phone: [facility] Work Phone: 1995 hepatitis B vaccine, pediatric or pediatric/adolescent dosage Tima Golias PT Work Phone: [facility] Work Phone: Payers Date Payer Category Payer Unknown [facility] [employer] [id number] 2019-Present [phone] [address] [place] [address] PPO [id number] 1995 Unknown [id number] 1995 Unknown [id number] 1995 Unknown [id number] Unknown [id number] Social History Date Type Detail Facility Tobacco smoking stat [facility] Never smoked tobacco [facility] Start: 01-25-2022 End: 03-22-2022 Alcohol intake Current drinker of alcohol (finding) [facility] Start: 10-25-2015 History SDOH Alcohol Comment Seldom [facility] Start: 1995 Sex Assigned At Female C [facility] Start: 01-15-2022 End: 03-22-2022 Exposure to SARS-CoV-2 (event) Not sure [facility] Medical Equipment Procedure Code Equipment Code Equipment Origin al Text Equipment Identifier Dates [facility] Sw[employer] 4.75mm Peek 19.1mm Suture Closed Eyelet Vent Sterile - [id number] Start: 08-27-2021 Clinical Notes 05-17-2021 to 03-22-2022 Nina Babin MD - 03/22/2022 2:52 PM EDT Note Date & Type Note Facility 03-22-2022 Note HNO ID: [id number] Author: Nina Babin MD Service: ? Author Type: Physician Type: Progress Notes Filed: 03/25/2022 10:59 PM Note Text: DATE OF PROCEDURE:?August 27, 2021 OPERATION: 1.?Left?knee arthroscopically-assisted anterior cruciate ligament reconstruction with quintuple?stranded hamstring autograft 2. Diagnostic arthroscopy. 3. Examination under anesthesia. 4.??Left knee?partial lateral meniscectomy REF: Tima Bowden Interval history: Dirk Myers returns today status post left knee surgery. No pain today. HEP going well. Had one episode of contact dermatitis over the anterior knee after using a scar cream and then taking a bath, but had no issues with the scar cream without bathing and has used it many times without issue. She is back to full activities Review of Systems: CV: No chest pain Pulm: No short of breath HEENT: No head ache General: no fevers, chills, nausea/vomiting, malaise ? Physical Examination: This is a well appearing, well nourished patient in no acute distress. Head is normocephalic and atraumatic. White sclera and pink conjunctiva. Mucous membranes are moist. Breathes easily and has normal chest wall excursion. Affect is normal. ? Left knee: Stable Teresita's. Negative Pivot shift. No tenderness over lateral joint line. Good quad activation. Range of motion: Flexion is 150, extension is 0. Effusion: 1+. Incisions: Well-healed. No infection. ? Imaging: None ? Impression: Dirk Myers is a 26 year old female, who is 7 months status post left ACL reconstruction with partial lateral menisectomy. She is doing well ? Plan: - Fu prn - Continue HEP W. Nathan Khan MD Orthopaedic Surgery, PGY-2 Attending Attestation: I have seen and evaluated this patient. I agree with the impression and plan of care as outlined in the Resident's note. Doing well.return to clinic as necessary. Nina Babin MD [facility] Orthopaedic Surgery and Sports Medicine [facility] Sports Medicine manager of development [facility] Food Analyst, Orthopaedic Sports Medicine Fellowship [facility] Orthopaedic and Rheumatologic [facility] 03-22-2022 History of Present illness Narrative Images from the original note were not included. DATE OF PROCEDURE: August 27, 2021 OPERATION: 1. Left knee arthroscopically-assisted anterior cruciate ligament reconstruction with quintuple stranded hamstring autograft 2. Diagnostic arthroscopy. 3. Examination under anesthesia. 4. Left knee partial lateral meniscectomy REF: Tima Bowden Interval history: Dirk Myers returns today status post left knee surgery. No pain today. HEP going well. Had one episode of contact dermatitis over the anterior knee after using a scar cream and then taking a bath, but had no issues with the scar cream without bathing and has used it many times without issue. She is back to full activities Review of Systems: CV: No chest pain Pulm: No short of breath HEENT: No head ache General: no fevers, chills, nausea/vomiting, malaise Physical Examination: This is a well appearing, well nourished patient in no acute distress. Head is normocephalic and atraumatic. White sclera and pink conjunctiva. Mucous membranes are moist. Breathes easily and has normal chest wall excursion. Affect is normal. Left knee: Stable Teresita's. Negative Pivot shift. No tenderness over lateral joint line. Good quad activation. Range of motion: Flexion is 150, extension is 0. Effusion: 1+. Incisions: Well-healed. No infection. Imaging: None Impression: Dirk Myers is a 26 year old female, who is 7 months status post left ACL reconstruction with partial lateral menisectomy. She is doing well Plan: - Fu prn - Continue HEP W. Nathan Khan MD Orthopaedic Surgery, PGY-2 Attending Attestation: I have seen and evaluated this patient. I agree with the impression and plan of care as outlined in the Resident's note. Doing well.return to clinic as necessary. Nina Babin MD [facility] Orthopaedic Surgery and Sports Medicine [facility] Sports Medicine manager of development [facility] Food Analyst, Orthopaedic Sports Medicine Fellowship [facility] Orthopaedic and Rheumatologic [place] documented in this encounter [facility] 01-25-2022 Note HNO ID: [id number] Author: Tima Bowden PT Service: ? Author Type: Physical Therapist Type: Progress Notes Filed: 01/25/2022 5:28 PM Note Text: 01/25/2022 [facility]ORTS THER[facility] PHYSICAL THERAPY DISCONTINUANCE OF CARE Plan of Care Period: Start of Care Date: 08/31/21 Last Visit Date: 01/18/2022 Therapy Program: The following is a summary of the interventions provided for this episode of care; Therapeutic exercise, Neuromuscular re-education, Self-custodial management, Gait training and Patient/Family/Caregiver Education Assessment: The following is the goal status: Surgery: 08/27/2021 Updated: 10/01/21 and 10/29/21 and 11/27/21 and 12/24/21 and 01/18/22 Goals for Episode of Care: created on 08/31/21 through 11/23/21 Phase 1 to Phase 2 Criteria: Criterion for Progression: Complete 20 straight leg raises with no quadriceps lag. - met Range of motion Full active knee extension (within 3 degrees) and Active Flexion to 110 degrees., - met Full quadriceps activation: full, without visual inhibition. - met Normalized Gait. - met Discontinuation of Crutch/Immobilizer devices. - met Phase 2 to Phase 3 Criteria: Criterion for Progression: Range of motion: full, equal to contralateral. - met Stairs: 10-12 steps, ascent/descent in a reciprocal pattern with (6-8 height). - met Double leg squat: 60-90 degree bend, equal weight bearing, proper mechanics. - met Demonstrates functional strength and control with performing daily activities. - met Phase 3 to Phase 4 Criteria: Criterion for Progression: Range of Motion: maintained full and equal to contralateral limb. - met Strength symmetry testin% symmetry using any of the following methods: dynamometer testing. - met Motor control: 6 inch eccentric step-downs with heel tap, 20 reps, proper mechanics. - met, when verbal cues and visual cues from mirror provided, not 100% symmetrical though Hopping in place: double leg and single leg, no pain, proper mechanics. - met, but not 100% symmetrical yet Outcomes: IKDC greater than or equal to 7, ADL-RSI greater than or equal to 50-60 score. - met (IKDC=9, ACL-RSI=87) Phase 4 to Phase 5 Criteria: Criterion for Progression: Maximum vertical jump without pain or instability. - met with BLE 80% of contralateral on single hop tests. - met, 83% Normalized running. - met Y-balance - anterior reach: less than 4 cm asymmetry. - met, 1.5 cm asymmetry Strength: 85% symmetry. - met IKDC Question (Global Rating of Knee Function) score of 8 or greater. - met (IKDC=9) Phase 5 to Return to Sport Criteria: Criterion for Progression: Strength: Greater than or equal to 90% symmetry. - met with dynamometer (eibxh=742%, JC=858%) Hop testin% symmetry with proper mechanics. - partially met (83%) Pain free transition to activities and no functional complaints. - met Confidence when running, cutting, jumping at full speed. - not met because not attempted yet IKDC Question (Global Rating of Knee Function) of > 9. - partially met Patient Goals: regain prior functional status - partially to mostly met Based on the most recent progress report, patient was progressing as expected toward functional goals based on home exercise program compliance, pain levels, documented subjective information on progress, documented objective information regarding ADL's, balance, flexibility, gait, independence in exercise, overall function, range of motion and strength and appointment compliance. Reason for Discontinuation of Care: Patient has made significant progress and referring physician agrees that patient is ready to transition from PT to HEP. Tima Bowden, PT [facility] 01-25-2022 Note HNO ID: [id number] Author: Valdemar Garnett MD Service: ? Author Type: Resident Type: Progress Notes Filed: 01/25/2022 9:19 AM Note Text: DATE OF PROCEDURE:?August 27, 2021 OPERATION: 1.?Left?knee arthroscopically-assisted anterior cruciate ligament reconstruction with quintuple?stranded hamstring autograft 2. Diagnostic arthroscopy. 3. Examination under anesthesia. 4.??Left knee?partial lateral meniscectomy REF: Tima Bowden Interval history: Dirk Myers returns today status post left knee surgery. No pain today. Continues to work with PT, she wonders if she can transition to home exercises. Has been jogging with her dog and has resumed all activities that are important to her. Review of Systems: CV: No chest pain Pulm: No short of breath HEENT: No head ache General: no fevers, chills, nausea/vomiting, malaise Physical Examination: This is a well appearing, well nourished patient in no acute distress. Head is normocephalic and atraumatic. White sclera and pink conjunctiva. Mucous membranes are moist. Breathes easily and has normal chest wall excursion. Affect is normal. Left knee: Stable Teresita's. Negative Pivot shift. No tenderness over lateral joint line. Good quad activation. Range of motion: Flexion is 150, extension is 0. Effusion: 1+. Incisions: Well-healed. No infection. Imaging: None Impression: Dirk Myers is a 26 year old female, who is 5 months status post left ACL reconstruction with partial lateral menisectomy. She is doing well Plan: -Follow up in 6 weeks. No XR needed at this visit -Okay to transition from PT to home exercises at this Valdemar Garnett MD [facility] 01-25-2022 Note HNO ID: [id number] Author: Nina Babin MD Service: ? Author Type: Physician Type: Progress Notes Filed: 01/25/2022 9:19 AM Note Text: DATE OF PROCEDURE:?August 27, 2021 OPERATION: 1.?Left?knee arthroscopically-assisted anterior cruciate ligament reconstruction with quintuple?stranded hamstring autograft 2. Diagnostic arthroscopy. 3. Examination under anesthesia. 4.??Left knee?partial lateral meniscectomy REF: Tima Bowden Attending Attestation: I have seen and evaluated this patient. I agree with the impression and plan of care as outlined in the Resident's note. Doing well. return to clinic in 6 weeks. Nina Babin MD [facility] Orthopaedic Surgery and Sports Medicine [facility] Sports Medicine manager of development [facility] Food Analyst, Orthopaedic Sports Medicine Fellowship [facility] Orthopaedic and Rheumatologic [facility] 01-18-2022 Note HNO ID: [id number] Author: Tima Bowden PT Service: ? Author Type: Physical Therapist Type: Progress Notes Filed: 01/18/2022 4:37 PM Note Text: Episode Visit Count: 39 Therapist That Will Oversee The Plan Of Care: Tima Bowden PT Start of Care Date: 08/31/21 Onset Date: 05/14/21 Patient Identified by Name and Date of : Yes REHABILITATION AND SPORTS THERAPY PHYSICAL THERAPY PROGRESS REPORT PLAN OF CARE UPDATE: Assessment: Dirk Myers demonstrates significant improvement in walking in the community, recreational activities, kneeling, running, jumping and squatting . She has met most goals. Patient continues to present with impairments in functional performance testing indicates limitations with hop test that interfere with jumping;recreational activities;running;squatting. Current prognosis is Excellent due to: current objective clinical presentation;good overall health status;positive past response to therapy;good support system/ coping skills. She will benefit from continued skilled therapy services to meet the updated goals for this plan of care as noted below pending response from referring provider 01/25/2022. Surgery: 08/27/2021 Updated: 10/01/21 and 10/29/21 and 11/27/21 and 12/24/21 and 01/18/22 Goals for Episode of Care: created on 08/31/21 through 11/23/21 Phase 1 to Phase 2 Criteria: Criterion for Progression: Complete 20 straight leg raises with no quadriceps lag. - met Range of motion Full active knee extension (within 3 degrees) and Active Flexion to 110 degrees., - met Full quadriceps activation: full, without visual inhibition. - met Normalized Gait. - met Discontinuation of Crutch/Immobilizer devices. - met Phase 2 to Phase 3 Criteria: Criterion for Progression: Range of motion: full, equal to contralateral. - met Stairs: 10-12 steps, ascent/descent in a reciprocal pattern with (6-8 height). - met Double leg squat: 60-90 degree bend, equal weight bearing, proper mechanics. - met Demonstrates functional strength and control with performing daily activities. - met Phase 3 to Phase 4 Criteria: Criterion for Progression: Range of Motion: maintained full and equal to contralateral limb. - met Strength symmetry testin% symmetry using any of the following methods: dynamometer testing. - met Motor control: 6 inch eccentric step-downs with heel tap, 20 reps, proper mechanics. - met, when verbal cues and visual cues from mirror provided, not 100% symmetrical though Hopping in place: double leg and single leg, no pain, proper mechanics. - met, but not 100% symmetrical yet Outcomes: IKDC greater than or equal to 7, ADL-RSI greater than or equal to 50-60 score. - met (IKDC=9, ACL-RSI=87) Phase 4 to Phase 5 Criteria: Criterion for Progression: Maximum vertical jump without pain or instability. - met with BLE 80% of contralateral on single hop tests. - met, 83% Normalized running. - met Y-balance - anterior reach: less than 4 cm asymmetry. - met, 1.5 cm asymmetry Strength: 85% symmetry. - met IKDC Question (Global Rating of Knee Function) score of 8 or greater. - met (IKDC=9) Phase 5 to Return to Sport Criteria: Criterion for Progression: Strength: Greater than or equal to 90% symmetry. - met with dynamometer (grqds=220%, OT=859%) Hop testin% symmetry with proper mechanics. - partially met (83%) Pain free transition to activities and no functional complaints. - met Confidence when running, cutting, jumping at full speed. - not met because not attempted yet IKDC Question (Global Rating of Knee Function) of > 9. - partially met Patient Goals: regain prior functional status - partially to mostly met Planned Interventions, Frequency, and Duration: Discontinue Therapy Services (pending recommendation from referring physician 01/25/2022), Patient to be seen for PLAN FOR NEXT VISIT: Likely d/c from supervised PT pending recommendation from referring physician at follow up on 01/25/2022. Classification ACL-RSI: 87 IKDC #10: 9 SUBJECTIVE: Patient Reason for Visit: Pt reports that overall she is doing very well and making continued progressive improvements. She denies any pain or any functional limitations currently. She reports that she has been exercising at the gym at her place of employment. She reports that these workouts have gone very well but that she does not yet feel 100% with jogging or strengthening. She denies any limitations at the gym but that she is exercising at a lower intensity than she did prior to her injury. She acknowledges that she has been a little more cautious than necessary but that her confidence is improving. Functional Limitations: jumping;recreational activities;running;squatting Pain: Pain Pain Level: 0 Pain Location: Knee - Left Frequency: Intermittent Post Treatment Pain Post Treatment Pain Level: No Change Post Treatment Pain Location: Knee - Left PROMIS Scales Hig (more content not included)... [facility] 01-14-2022 Note HNO ID: [id number] Author: Tima Bowden PT Service: ? Author Type: Physical Therapist Type: Progress Notes Filed: 01/14/2022 10:37 AM Note Text: Episode Visit Count: 38 Therapist That Will Oversee The Plan Of Care: Tima Bowden PT Start of Care Date: 08/31/21 Onset Date: 05/14/21 Patient Identified by Name and Date of : Yes REHABILITATION AND SPORTS THERAPY PHYSICAL THERAPY TREATMENT NOTE ASSESSMENT: Dirk Myers tolerated the session with fatigue, expected muscle soreness and no issues. She demonstrated improvements in strength, endurance and exercise tolerance. The patient will continue to benefit from ongoing skilled physical therapy for reassessment by supervising therapist and to continue with post-operative protocol . PLAN FOR NEXT VISIT: Continue with progression per SCHWARZ protocol and ACL carepath. Progress to tolerance. Focus on high level strength, balance and proprioceptive exercise. Emphasize HS and frontal plane musculature. Progress agility drills as pt is able. Re-assess for plan of care update and possible d/c preparations. SUBJECTIVE: Patient Reason for Visit: Pt reports getting a good workout last session but denies any increase in pain. She reports continued progressive improvements overall and denies any pain currently. Pain: Pain Pain Level: 0 Pain Location: Knee - Left Description: (no pain to start today) Frequency: Intermittent Post Treatment Pain Post Treatment Pain Level: 0 Post Treatment Pain Location: Knee - Left Post Treatment Pain Description: (fatigue only) Post Treatment Symptoms: After session, pt reported fatigue from a good workout but denied any increase in pain. OBJECTIVE MEASURES WITH LEVEL OF FUNCTION: TREATMENT: Therapeutic Exercise: 1: lauryn Gray peak program level 6 x5 minutes (subjective update obtained and pt response to activities assessed.) 2: Slide board at second shortest distance 1.5 minutes x2 with rest 3: purple t-band monster walk 2 laps facing same direction throughout. B side stepping, monster walk forward and monster walk backward. [place] band loop added around toes to engage hip ER musculature 5: L HS stool scoots x2 laps (~100feet each lap) 7: squats on platform side of BOSU at // bars 2x12 9: L HS curl machine 50# 3x15 10: L leg press 136# 3x8 emphasis on form and control 12: Multi-hip machine 80# B hip flexion, abduction and extension x15 each B 14: L gastroc stretch at wall reviewed for HEP but pt reports that this has been less necessary lately (pt completed this throughout) 15: L SLS R retro lunge with R foot on towel on tile 2x12 (No UE support) Skilled Intervention: Patient was educated in proper exercise technique and purpose for exercises. Skilled judgment was provided in selection of appropriate interventions. Correct performance of therapeutic exercises was facilitated with verbal and visual cuing. Patient education as noted. Billing Therapeutic Exercise Treatment Minutes: 45 Total Treatment Time Minutes (timed and untimed codes) : 45 Tima Bowden PT [facility] 01-09-2022 Note HNO ID: [id number] Author: Tima Bowden PT Service: ? Author Type: Physical Therapist Type: Progress Notes Filed: 01/09/2022 12:56 PM Note Text: Episode Visit Count: 37 Therapist That Will Oversee The Plan Of Care: Tima Bowden PT Start of Care Date: 08/31/21 Onset Date: 05/14/21 Patient Identified by Name and Date of : Yes REHABILITATION AND SPORTS THERAPY PHYSICAL THERAPY TREATMENT NOTE ASSESSMENT: Dirk Myers tolerated the session with fatigue, expected muscle soreness and no issues. She demonstrated improvements in strength and exercise tolerance. The patient will continue to benefit from ongoing skilled physical therapy to progress toward set goals and to continue with post-operative protocol . PLAN FOR NEXT VISIT: Continue with progression per SCHWARZ protocol and ACL carepath. Progress to tolerance. Focus on high level strength, balance and proprioceptive exercise. Emphasize HS and frontal plane musculature. Progress agility drills as pt is able. SUBJECTIVE: Patient Reason for Visit: Pt reports that she is doing well and making progress without any negative effects from PT sessions. She requested a shorter session today secondary to a meeting. Pain: Pain Pain Level: 0 Pain Location: Knee - Left Description: (no pain to start today) Frequency: Intermittent Post Treatment Pain Post Treatment Pain Level: 0 Post Treatment Pain Location: Knee - Left Post Treatment Pain Description: (fatigue only) Post Treatment Symptoms: During and after therex today, pt reported significant fatigue but she denied any pain or problems. She reported that the modifications were effective at making the workout more challenging. OBJECTIVE MEASURES WITH LEVEL OF FUNCTION: TREATMENT: Therapeutic Exercise: 1: TM 1 minute at 2.0 mph, then 4 minutes at 5.5 mph and lastly 1 minute at 2.0 mph (subjective update obtained and pt response to activities assessed.) 2: Slide board at second shortest distance 1.5 minutes x2 with rest 3: purple t-band monster walk 1 lap facing same direction throughout. B side stepping, monster walk forward and monster walk backward. [place] band loop added around toes to engage hip ER musculature 5: L HS stool scoots x2 laps (~100feet each lap) 9: L HS curl machine 50# 3x15 10: L leg press 112# 3x15 emphasis on form and control 12: Multi-hip machine 80# B hip flexion, abduction and extension x15 each B 13: agility ladder L SLS hop scotch x1 pass. 14: L gastroc stretch at wall reviewed for HEP but pt reports that this has been less necessary lately (pt completed this throughout) 15: L SLS R retro lunge with R foot on towel on tile 2x12 (No UE support) Skilled Intervention: Patient was educated in proper exercise technique and purpose for exercises. Skilled judgment was provided in selection of appropriate interventions. Correct performance of therapeutic exercises was facilitated with verbal, visual and tactile cuing. Patient education as noted. Billing Therapeutic Exercise Treatment Minutes: 45 Total Treatment Time Minutes (timed and untimed codes) : 45 Tima Bowden PT [facility] 01-07-2022 Note HNO ID: [id number] Author: Tima Bowden PT Service: ? Author Type: Physical Therapist Type: Progress Notes Filed: 01/07/2022 10:47 AM Note Text: Episode Visit Count: 36 Therapist That Will Oversee The Plan Of Care: Tima Bowden PT Start of Care Date: 08/31/21 Onset Date: 05/14/21 Patient Identified by Name and Date of : Yes REHABILITATION AND SPORTS THERAPY PHYSICAL THERAPY TREATMENT NOTE ASSESSMENT: Dirk Myers tolerated the session with fatigue, expected muscle soreness and no issues. She demonstrated improvements in exercise tolerance and strength. The patient will continue to benefit from ongoing skilled physical therapy to progress toward set goals and to continue with post-operative protocol. PLAN FOR NEXT VISIT: Continue with progression per SCHWARZ protocol and ACL carepath. Progress to tolerance. Focus on high level strength, balance and proprioceptive exercise. Emphasize HS and frontal plane musculature. Progress agility drills as pt is able. SUBJECTIVE: Patient Reason for Visit: Pt reports that overall she is doing very well. She reports traveling out of town over the weekend with lots of walking. As a result, she reports that her L knee was tired when she arrived home Friday night but no pain. She denies any pain to start today. Pain: Pain Pain Level: 0 Pain Location: Knee - Left Description: (no pain to start today) Frequency: Intermittent Post Treatment Pain Post Treatment Pain Level: 0 Post Treatment Pain Location: Knee - Left Post Treatment Pain Description: (fatigue only) Post Treatment Symptoms: Pt reported getting a good workout with expected fatigue but she denied any increase in pain. OBJECTIVE MEASURES WITH LEVEL OF FUNCTION: TREATMENT: Therapeutic Exercise: 1: Stairmaster, blast off program level 5 x5 minutes (subjective update obtained and pt response to activity level over the weekend discussed) 2: Upright bike seat #3 reistance level 6 x5 minutes (subjective data obtained and types of activities done over the weekend discussed as well as response to previous workout.) 3: purple t-band monster walk 2 laps facing same direction throughout. B side stepping, monster walk forward and monster walk backward. 4: L SLS on airex blue foam ball toss to rebounder with large physioball 3x15 5: L HS stool scoots x2 laps (~100feet each lap) 6: agility ladder forward x4 passes landing both feet in the same square rapidly. 7: squats on platform side of BOSU at // bars 2x15 8: agility ladder lateral x2 passes each direction landing both feet in the same square rapidly. 9: L HS curl machine 50# 3x15 10: L leg press 112# 3x15 emphasis on form and control 11: agility ladder hop scotch B x4 passes 12: Multi-hip machine 80# B hip flexion, abduction and extension x15 each B 13: agility ladder L SLS hop scotch x1 pass. 14: L gastroc stretch at wall reviewed for HEP but pt reports that this has been less necessary lately (pt completed this throughout) 15: L SLS R retro lunge with R foot on towel on tile 2x12 (No UE support) Skilled Intervention: Patient was educated in proper exercise technique and purpose for exercises. Skilled judgment was provided in selection of appropriate interventions. Correct performance of therapeutic exercises was facilitated with verbal and visual cuing. Patient education as noted. Self-Penitentiary Management: 1: Pt questions about shoes answered and many recommendations made Skilled Intervention: Reviewed patient specific diagnosis in relation to activities of daily living/home management. Billing Therapeutic Exercise Treatment Minutes: 50 Self-Care/Home Management Treatment Minutes: 5 Total Treatment Time Minutes (timed and untimed codes) : 55 Tima Bowden PT [facility] 01-04-2022 Note HNO ID: [id number] Author: Tima Bowden PT Service: ? Author Type: Physical Therapist Type: Progress Notes Filed: 01/04/2022 12:20 PM Note Text: Episode Visit Count: 35 Therapist That Will Oversee The Plan Of Care: Tima Bowden PT Start of Care Date: 08/31/21 Onset Date: 05/14/21 Patient Identified by Name and Date of : Yes REHABILITATION AND SPORTS THERAPY PHYSICAL THERAPY TREATMENT NOTE ASSESSMENT: Dirk Myers tolerated the session with shortness of breath, fatigue and expected muscle soreness. She demonstrated improvements in strength and exercise tolerance. The patient will continue to benefit from ongoing skilled physical therapyto continue with post-operative protocol . PLAN FOR NEXT VISIT: Continue with progression per SCHWARZ protocol and ACL carepath. Progress to tolerance. Focus on high level strength, balance and proprioceptive exercise. Emphasize HS and frontal plane musculature. Progress agility drills as pt is able. SUBJECTIVE: Patient Reason for Visit: Pt reports continued progressive improvements without pain. She reports that she has been pushing herself to squat normally with equal weight distribution and less favoring of L LE. Pain: Pain Pain Level: 0 Pain Location: Knee - Left Description: (no pain to start) Frequency: Intermittent Post Treatment Pain Post Treatment Pain Level: 0 Post Treatment Pain Location: Knee - Left Post Treatment Pain Description: (fatigue only) Post Treatment Symptoms: During and after session, pt reported significant fatigue from a good workout but she denied any pain after. She stated that the slideboard is the most difficult exercise she has done. OBJECTIVE MEASURES WITH LEVEL OF FUNCTION: TREATMENT: Therapeutic Exercise: 1: [place], black hole program rate 9 x5 minutes (subjective update obtained but majority of this time was unsupervised.) 2: Jogging on treadmill: 2 minute warm up at 3 mph, 3 min at 5.5 mph and cool down x1 min at 3 mph for a total of 6 minutes. (pattern supervised and cues provided throughout) 3: purple t-band monster walk 2 laps facing same direction throughout. B side stepping, monster walk forward and monster walk backward. 4: L SLS on airex blue foam ball toss to rebounder with large physioball 3x15 5: L HS stool scoots x2 laps (~100feet each lap) 6: agility ladder forward x4 passes landing both feet in the same square rapidly. 7: squats on platform side of BOSU at // bars 2x12 8: agility ladder lateral x3 passes each direction landing both feet in the same square rapidly. 9: L HS curl machine 50# 3x15 10: L leg press 112# 3x15 emphasis on form and control 12: Multi-hip machine 80# B hip flexion, abduction and extension x15 each B 13: slide board at second shortest distance x2 minutes total 14: L gastroc stretch at wall reviewed for HEP but pt reports that this has been less necessary lately (pt completed this throughout) 15: L SLS R retro lunge with R foot on towel on tile 2x12 (No UE support) Skilled Intervention: Patient was educated in proper exercise technique and purpose for exercises. Skilled judgment was provided in selection of appropriate interventions. Correct performance of therapeutic exercises was facilitated with verbal and visual cuing. Patient education as noted. Billing Therapeutic Exercise Treatment Minutes: 60 Total Treatment Time Minutes (timed and untimed codes) : 60 Tima Golias, PT [facility] 12-31-2021 Note HNO ID: [id number] Author: Tima Bowden PT Service: ? Author Type: Physical Therapist Type: Progress Notes Filed: 12/31/2021 10:28 AM Note Text: Episode Visit Count: 34 Therapist That Will Oversee The Plan Of Care: Tima Bowden PT Start of Care Date: 08/31/21 Onset Date: 05/14/21 Patient Identified by Name and Date of : Yes REHABILITATION AND SPORTS THERAPY PHYSICAL THERAPY TREATMENT NOTE ASSESSMENT: Dirk Myers tolerated the session with fatigue, expected muscle soreness and no issues. She demonstrated improvements in strength and exercise tolerance. The patient will continue to benefit from ongoing skilled physical therapy to progress toward set goals and to continue with post-operative protocol. PLAN FOR NEXT VISIT: Continue with progression per SCHWARZ protocol and ACL carepath. Progress to tolerance. Focus on high level strength, balance and proprioceptive exercise. Emphasize HS and frontal plane musculature. Progress agility drills as pt is able. SUBJECTIVE: Patient Reason for Visit: Pt reports that her L knee is improving and recovering well. She reports that she took a family hike this past weekend and that she tolerated this well. She denies any pain to start today. Pain: Pain Pain Level: 0 Pain Location: Knee - Left Description: (no pain to start today) Frequency: Intermittent Post Treatment Pain Post Treatment Pain Level: 0 Post Treatment Pain Location: Knee - Left Post Treatment Pain Description: (fagtigue only) Post Treatment Symptoms: Pt reported getting a good workout during and after session today but she denied any increase in pain. She appreciated the intensity of the workout and the fatigue it produced. OBJECTIVE MEASURES WITH LEVEL OF FUNCTION: TREATMENT: Therapeutic Exercise: 1: lauryn Gray peak program rate 6 x5 minutes (subjective update obtained but majority of this time was unsupervised.) 2: Jogging on treadmill: 1 minute warm up at 2 mph, 4 min at 5.5 mph and cool down x1 min at 2 mph for a total of 6 minutes. (pattern supervised and cues provided throughout) 3: purple t-band monster walk 2 laps facing same direction throughout. B side stepping, monster walk forward and monster walk backward. 4: L SLS on airex blue foam ball toss to rebounder with large physioball 3x15 5: L HS stool scoots x2 laps (~100feet each lap) 6: agility ladder forward x4 passes landing both feet in the same square rapidly. 7: squats on platform side of BOSU at // bars 2x12 8: agility ladder lateral x3 passes each direction landing both feet in the same square rapidly. 9: L HS curl machine 50# 3x15 10: L leg press 112# 3x15 emphasis on form and control 11: L calf raise on leg press 112# 2x10 12: Multi-hip machine 80# B hip flexion, abduction and extension x12 each B 14: L gastroc stretch at wall reviewed for HEP and continuation encouraged. (pt completed this throughout) 15: L SLS R retro lunge with R foot on towel on tile 2x10 (No UE support) Skilled Intervention: Patient was educated in proper exercise technique and purpose for exercises. Skilled judgment was provided in selection of appropriate interventions. Correct performance of therapeutic exercises was facilitated with verbal and visual cuing. Billing Therapeutic Exercise Treatment Minutes: 45 Total Treatment Time Minutes (timed and untimed codes) : 50 Tima Bowden PT [facility] 12-27-2021 Note HNO ID: [id number] Author: Tima Bowden PT Service: ? Author Type: Physical Therapist Type: Progress Notes Filed: 12/27/2021 11:38 AM Note Text: Episode Visit Count: 33 Therapist That Will Oversee The Plan Of Care: Tima Bowden PT Start of Care Date: 08/31/21 Onset Date: 05/14/21 Patient Identified by Name and Date of : Yes REHABILITATION AND SPORTS THERAPY PHYSICAL THERAPY TREATMENT NOTE ASSESSMENT: Dirk Myers tolerated the session with expected muscle soreness and no issues. She demonstrated improvements in strength and exercise tolerance. The patient will continue to benefit from ongoing skilled physical therapy to continue with post-operative protocol . PLAN FOR NEXT VISIT: Continue with progression per SCHWARZ protocol and ACL carepath. Progress to tolerance. Focus on high level strength, balance and proprioceptive exercise. Emphasize HS and frontal plane musculature. SUBJECTIVE: Patient Reason for Visit: Pt reports continued progressive improvements with increasing confidence. She denies any pain to start today and she denies any increased pain or problems following last session. She reports getting a good workout and she appreciates this. Pain: Pain Pain Level: 0 Pain Location: Knee - Left Description: (no pain to start) Frequency: Intermittent Post Treatment Pain Post Treatment Pain Level: 0 Post Treatment Pain Location: Knee - Left Post Treatment Pain Description: (fatigue only) Post Treatment Symptoms: After session pt stated, I am tired. She reported an appropriate amount of fatigue but she denied any increase in pain, just a good workout. OBJECTIVE MEASURES WITH LEVEL OF FUNCTION: TREATMENT: Therapeutic Exercise: 1: lauryn Gray peak program rate 5 x5 minutes (subjective update obtained and pt progress discussed.) 2: Jogging on treadmill: 1 minute warm up at 2 mph, 4 min at 5.0 mph and cool down x1 min at 2 mph for a total of 6 minutes. (pattern supervised and cues provided throughout) 3: purple t-band monster walk 2 laps facing same direction throughout. B side stepping, monster walk forward and monster walk backward. 4: L SLS on airex blue foam ball toss to rebounder with large physioball 3x15 5: L HS stool scoots x2 laps (~100feet each lap) 7: squats on platform side of BOSU at // bars 2x12 9: L HS curl machine 50# 3x15 10: L leg press 112# 3x15 emphasis on form and control 11: L calf raise on leg press 112# 2x10 12: Multi-hip machine 80# B hip flexion, abduction and extension x10 each B 14: L gastroc stretch at wall reviewed for HEP and continuation encouraged. (pt completed this throughout) 15: L SLS R retro lunge with R foot on towel on tile 2x10 (No UE support) Skilled Intervention: Patient was educated in proper exercise technique and purpose for exercises. Skilled judgment was provided in selection of appropriate interventions. Correct performance of therapeutic exercises was facilitated with verbal and visual cuing. Billing Therapeutic Exercise Treatment Minutes: 45 Total Treatment Time Minutes (timed and untimed codes) : 45 Tima Bowden PT [facility] 12-24-2021 Note HNO ID: [id number] Author: Tima Bowden PT Service: ? Author Type: Physical Therapist Type: Progress Notes Filed: 12/24/2021 4:45 PM Note Text: Episode Visit Count: 32 Therapist That Will Oversee The Plan Of Care: Tima Bowden PT Start of Care Date: 08/31/21 Onset Date: 05/14/21 Patient Identified by Name and Date of : Yes REHABILITATION AND SPORTS THERAPY PHYSICAL THERAPY PROGRESS REPORT PLAN OF CARE UPDATE: Assessment: Dirk Myers demonstrates moderate improvement in physical activities, recreational activities, running, jumping and squatting. She has met several early stage and mid stage goals and progressed toward goals. Patient continues to present with impairments in balance, overall function, patient reported outcome measures, strength and functional performance testing indicates limitations with high level strength, balance and proprioceptive tasks that interfere with jumping;squatting;running;recreat ional activities;physical activities;heavy exertion. Current prognosis is Excellent due to: current objective clinical presentation;good overall health status;acuteness of condition;positive past response to therapy;good support system/ coping skills. She will benefit from continued skilled therapy services to meet the updated goals for this plan of care as noted below. Surgery: 08/27/2021 Updated: 10/01/21 and 10/29/21 and 11/27/21 and 12/24/21 Goals for Episode of Care: created on 08/31/21 through 11/23/21 Phase 1 to Phase 2 Criteria: Criterion for Progression: Complete 20 straight leg raises with no quadriceps lag. - met Range of motion Full active knee extension (within 3 degrees) and Active Flexion to 110 degrees., - met Full quadriceps activation: full, without visual inhibition. - met Normalized Gait. - met Discontinuation of Crutch/Immobilizer devices. - met Phase 2 to Phase 3 Criteria: Criterion for Progression: Range of motion: full, equal to contralateral. - met Stairs: 10-12 steps, ascent/descent in a reciprocal pattern with (6-8 height). - met Double leg squat: 60-90 degree bend, equal weight bearing, proper mechanics. - met Demonstrates functional strength and control with performing daily activities. - met Phase 3 to Phase 4 Criteria: Criterion for Progression: Range of Motion: maintained full and equal to contralateral limb. - met Strength symmetry testin% symmetry using any of the following methods: dynamometer testing. - met Motor control: 6 inch eccentric step-downs with heel tap, 20 reps, proper mechanics. - met, when verbal cues and visual cues from mirror provided, not 100% symmetrical though Hopping in place: double leg and single leg, no pain, proper mechanics. - met, but not 100% symmetrical yet Outcomes: IKDC greater than or equal to 7, ADL-RSI greater than or equal to 50-60 score. - met (IKDC=9, ACL-RSI=97) Phase 4 to Phase 5 Criteria: Criterion for Progression: Maximum vertical jump without pain or instability. - met with BLE 80% of contralateral on single hop tests. - partially met, 75.23% Normalized running. - met Y-balance - anterior reach: less than 4 cm asymmetry. - met, 2 cm asymmetry Strength: 85% symmetry. - met IKDC Question (Global Rating of Knee Function) score of 8 or greater. - met (IKDC=9) Phase 5 to Return to Sport Criteria: Criterion for Progression: Strength: Greater than or equal to 90% symmetry. - partially met Hop testin% symmetry with proper mechanics. - partially met Pain free transition to activities and no functional complaints. - partially met Confidence when running, cutting, jumping at full speed. - not met IKDC Question (Global Rating of Knee Function) of > 9. - partially met Patient Goals: regain prior functional status - partially met Planned Interventions, Frequency, and Duration: 2x/week, 4 weeks Total Number of Visits Planned: 8 Patient to be seen for Therapeutic exercise (51167);Neuromuscular re-education (18497);Manual therapy (50512);Therapeutic activities (94043);Self-custodial management (60185);Patient/Family/Caregiver Education;Body Mechanics Training PLAN FOR NEXT VISIT: Continue with progression per SCHWARZ protocol and ACL carepath. Progress to tolerance. Focus on high level strength, balance and proprioceptive exercise. Emphasize HS and frontal plane musculature. Classification ACL-RSI: 97 IKDC #10: 9 SUBJECTIVE: Patient Reason for Visit: Pt reports that overall she is doing very well and making progress. She acknowledges that she is not 100% but getting progressively better. She denies any pain to start today and reports compliance with HEP. Pt reports that she is gaining confidence. Functional Limitations: jumping;squatting;running;recreat ional activities;physical activities;heavy exertion Pain: Pain Pain Level: 0 Pain Location: Knee - Left Description: (no pain to start today) Frequency: (no pain in the recent pa (more content not included)... [facility] 12-21-2021 Note HNO ID: [id number] Author: Tima Bowden PT Service: ? Author Type: Physical Therapist Type: Progress Notes Filed: 12/21/2021 5:38 PM Note Text: Episode Visit Count: 31 Therapist That Will Oversee The Plan Of Care: Tima Bowden PT Start of Care Date: 08/31/21 Onset Date: 05/14/21 Patient Identified by Name and Date of : Yes REHABILITATION AND SPORTS THERAPY PHYSICAL THERAPY TREATMENT NOTE ASSESSMENT: Dirk Myers tolerated the session with fatigue, expected muscle soreness and no issues. She demonstrated improvements in strength and exercise tolerance. The patient will continue to benefit from ongoing skilled physical therapy to continue with post-operative protocol . PLAN FOR NEXT VISIT: Continue with progression per SCHWARZ protocol and ACL carepath. Progress to tolerance. SUBJECTIVE: Patient Reason for Visit: Pt denies any new issues or problems. She reports getting a good workout last session and she appreciates the fatigue from exercise. She also reports walking her dog lately and that this went well. She denies any pain to start today. Pain: Pain Pain Level: 0 Pain Location: Knee - Left Description: (no pain to start) Frequency: Intermittent Post Treatment Pain Post Treatment Pain Level: 0 Post Treatment Pain Location: Knee - Left Post Treatment Pain Description: (fatigue only) Post Treatment Symptoms: During and after today's session, pt reported fatigue from a good workout but no pain. OBJECTIVE MEASURES WITH LEVEL OF FUNCTION: TREATMENT: Therapeutic Exercise: 1: lauryn Gray peak program rate 5 x5 minutes (subjective update obtained and pt progress discussed.) 2: Jogging on treadmill: 1 minute warm up at 2 mph, 4 min at 5.0 mph and cool down x1 min at 2 mph for a total of 6 minutes. (pattern supervised and cues provided throughout) 3: blue t-band(smaller one) monster walk 2 laps facing same direction throughout. B side stepping, monster walk forward and monster walk backward. 4: L SLS on airex blue foam ball toss to rebounder with large physioball 3x15 5: L HS stool scoots x2 laps (~100feet each lap) 7: squats on platform side of BOSU at // bars 2x15 8: Pt questions about walking her dog were answered and recommendations made. She was advised that she can start to progress her activity level on level predictable surfaces. 9: L HS curl machine 50# 3x15 10: L leg press 112# 3x12 emphasis on form and control 11: L calf raise on leg press 112# 2x10 12: Multi-hip machine 80# B hip flexion, abduction and extension x12 each B 13: two legged hopping in place in front of mirror 2x10 with lots of encouragement. Equal weight distribution encouraged as well as avoidance of medial collapse(genu valgus) with landing. She was encouraged to stick the landing (lots of verbal cues and demonstration) 14: L gastroc stretch at wall reviewed for HEP and continuation encouraged. (pt completed this throughout) 15: L SLS R retro lunge with R foot on towel on tile 2x10 (No UE support) Skilled Intervention: Patient was educated in proper exercise technique and purpose for exercises. Skilled judgment was provided in selection of appropriate interventions. Correct performance of therapeutic exercises was facilitated with verbal, visual and tactile cuing. Patient education as noted. Billing Therapeutic Exercise Treatment Minutes: 45 Total Treatment Time Minutes (timed and untimed codes) : 45 Tima Bowden PT [facility] 12-14-2021 Note HNO ID: [id number] Author: Tima Bowden PT Service: ? Author Type: Physical Therapist Type: Progress Notes Filed: 12/14/2021 11:19 AM Note Text: Episode Visit Count: 30 Therapist That Will Oversee The Plan Of Care: Tima Bowden PT Start of Care Date: 08/31/21 Onset Date: 05/14/21 Patient Identified by Name and Date of : Yes REHABILITATION AND SPORTS THERAPY PHYSICAL THERAPY TREATMENT NOTE ASSESSMENT: Dirk Myers tolerated the session with fatigue, expected muscle soreness and no issues. She demonstrated improvements in strength and exercise tolerance. The patient will continue to benefit from ongoing skilled physical therapy to continue with post-operative protocol . PLAN FOR NEXT VISIT: Continue with progression per SCHWARZ protocol and ACL carepath. Progress to tolerance. SUBJECTIVE: Patient Reason for Visit: Pt reports that she is still doing very well. She denies any new issues or problems and no pain to start today. She reports compliance with HEP. She reports that her follow up with referring provider went very well. She reports being advised to continue with current plan and to return to Dr. Babin for follow up in 6 weeks. Pain: Pain Pain Level: 0 Pain Location: Knee - Left Description: (no pain to start today) Frequency: Intermittent Post Treatment Pain Post Treatment Pain Level: 0 Post Treatment Pain Location: Knee - Left Post Treatment Pain Description: (good workout but no increase in pain) Post Treatment Symptoms: Pt reported an appropriate amount of fatigue, but no increase in pain during or after session. OBJECTIVE MEASURES WITH LEVEL OF FUNCTION: TREATMENT: Therapeutic Exercise: 1: lauryn Gray peak program rate 4 x5 minutes 2: Jogging on treadmill: 1 minute warm up at 2 mph, 4 min at 5.0 mph and cool down x1 min at 2 mph for a total of 6 minutes. (pattern supervised and cues provided throughout) 3: blue t-band(smaller one) monster walk 2 laps facing same direction throughout. B side stepping, monster walk forward and monster walk backward. 4: L SLS on airex blue foam ball toss to rebounder with large physioball 3x15 5: L HS stool scoots x2 laps (~100feet each lap) 7: squats on platform side of BOSU at // bars 2x12 8: L SLS lateral step down R heel taps from 6 inch step 2x10 9: L HS curl machine 50# 3x15 10: L leg press 112# 3x12 emphasis on form and control 11: L calf raise on leg press 112# 2x10 12: Multi-hip machine 80# B hip flexion, abduction and extension x12 each B 14: L gastroc stretch at wall reviewed for HEP and continuation encouraged. 15: L SLS R retro lunge with R foot on towel on tile 2x10 (No UE support) Skilled Intervention: Patient was educated in proper exercise technique and purpose for exercises. Skilled judgment was provided in selection of appropriate interventions. Correct performance of therapeutic exercises was facilitated with verbal and visual cuing. Patient education as noted. Billing Therapeutic Exercise Treatment Minutes: 45 Total Treatment Time Minutes (timed and untimed codes) : 45 Tima Bowden PT [facility] 12-11-2021 Note HNO ID: [id number] Author: Nina Babin MD Service: ? Author Type: Physician Type: Progress Notes Filed: 12/11/2021 9:21 AM Note Text: DATE OF PROCEDURE:?August 27, 2021 OPERATION: 1.?Left?knee arthroscopically-assisted anterior cruciate ligament reconstruction with quintuple?stranded hamstring autograft 2. Diagnostic arthroscopy. 3. Examination under anesthesia. 4.??Left knee?partial lateral meniscectomy REF: Tima Bowden Interval history: Dirk Myers returns today status post left knee surgery. Working with PT, has started jogging and jumping. Overall doing well without complaints.. Review of Systems: CV: No chest pain Pulm: No short of breath HEENT: No head ache General: no fevers, chills, nausea/vomiting, malaise Physical Examination: This is a well appearing, well nourished patient in no acute distress. Head is normocephalic and atraumatic. White sclera and pink conjunctiva. Mucous membranes are moist. Breathes easily and has normal chest wall excursion. Affect is normal. Left knee: Stable Teresita's. Good quad activation. Range of motion: Flexion is 140, extension is 0. Effusion: 1+. Incisions: Well-healed. No infection. Imaging: None Impression: Dirk Myers is a 26 year old female, who is approximately 3-1/2-month status post left ACL reconstruction. Plan: Overall doing well, continue with PT and progression of activities. Follow-up visit 6 weeks Bryson Denise MD Attending Attestation: I have seen and evaluated this patient. I agree with the impression and plan of care as outlined in the Fellow's note. Doing great. return to clinic in 6 weeks. Solid Teresita's Nina Babin MD [facility] Orthopaedic Surgery and Sports Medicine [facility] Sports Medicine manager of development [facility] Medicine Food Analyst, Orthopaedic Sports Medicine Fellowship [facility] Orthopaedic and Rheumatologic [facility] 12-10-2021 Note HNO ID: [id number] Author: Tima Bowden PT Service: ? Author Type: Physical Therapist Type: Progress Notes Filed: 12/10/2021 3:04 PM Note Text: Episode Visit Count: 29 Therapist That Will Oversee The Plan Of Care: Tima Bowden PT Start of Care Date: 08/31/21 Onset Date: 05/14/21 Patient Identified by Name and Date of : Yes REHABILITATION AND SPORTS THERAPY PHYSICAL THERAPY TREATMENT NOTE ASSESSMENT: Dirk Myers tolerated the session with fatigue, expected muscle soreness and no issues. She demonstrated improvements in strength and exercise tolerance. The patient will continue to benefit from ongoing skilled physical therapy to continue with post-operative protocol. PLAN FOR NEXT VISIT: Continue with progression per SCHWARZ protocol and ACL carepath. Progress to tolerance. SUBJECTIVE: Patient Reason for Visit: Pt denies any pain to start today and she denies any significant changes overall. She reports that she had a tiring weekend. Pain: Pain Pain Level: 0 Pain Location: Knee - Left Description: (no pain to start today) Frequency: Intermittent Post Treatment Pain Post Treatment Pain Level: 0 Post Treatment Pain Location: Knee - Left Post Treatment Pain Description: (fatigue) Post Treatment Symptoms: Pt reported considerable fatigue but denied any increase in pain during or after today's session. OBJECTIVE MEASURES WITH LEVEL OF FUNCTION: TREATMENT: Therapeutic Exercise: 1: lauryn Gray peak program rate 4 x5 minutes 2: Jogging on treadmill: 3 minute warm up at 2.5 mph, 4 min at 5.0 mph and cool down x1 min at 2.5 mph for a total of 6 minutes. (pattern supervised and cues provided throughout) 3: blue t-band(smaller one) monster walk 2 laps facing same direction throughout. B side stepping, monster walk forward and monster walk backward. 4: L SLS on airex blue foam ball toss to rebounder with large physioball 2x15 5: L HS stool scoots x2 laps (~100feet each lap) 6: lateral step ups on and over dome side of BOSU at // bars 2x10 7: squats on platform side of BOSU at // bars 2x10 9: L HS curl machine 50# 3x15 10: L leg press 112# 3x12 emphasis on form and control 11: L calf raise on leg press 112# 2x10 12: Multi-hip machine 80# B hip flexion, abduction and extension x12 each B 14: L gastroc stretch at wall reviewed for HEP and continuation encouraged. 15: L SLS R retro lunge with R foot on towel on tile 2x10 Skilled Intervention: Patient was educated in proper exercise technique and purpose for exercises. Skilled judgment was provided in selection of appropriate interventions. Correct performance of therapeutic exercises was facilitated with verbal, visual and tactile cuing. Patient education as noted. Billing Therapeutic Exercise Treatment Minutes: 45 Total Treatment Time Minutes (timed and untimed codes) : 45 Tima Bowden PT [facility] 12-07-2021 Note HNO ID: [id number] Author: Tima Bowden PT Service: ? Author Type: Physical Therapist Type: Progress Notes Filed: 12/07/2021 4:02 PM Note Text: Episode Visit Count: 28 Therapist That Will Oversee The Plan Of Care: Tima Bowden PT Start of Care Date: 08/31/21 Onset Date: 05/14/21 Patient Identified by Name and Date of : Yes REHABILITATION AND SPORTS THERAPY PHYSICAL THERAPY TREATMENT NOTE ASSESSMENT: Dirk Myers tolerated the session with fatigue, expected muscle soreness and no issues. She demonstrated improvements in strength and exercise tolerance. The patient will continue to benefit from ongoing skilled physical therapy to continue with post-operative protocol . PLAN FOR NEXT VISIT: Continue with progression per SCHWARZ protocol and ACL carepath. Progress to tolerance. SUBJECTIVE: Patient Reason for Visit: Pt reports that overall she is still doing very well. She denies any pain to start today and reports compliance with HEP. Pain: Pain Pain Level: 0 Pain Location: Knee - Left Description: (no pain to start today) Frequency: Intermittent Post Treatment Pain Post Treatment Pain Level: 0 Post Treatment Pain Location: Knee - Left Post Treatment Pain Description: (fatigue from a good workout) Post Treatment Symptoms: After session pt denied any increase in pain and stated I feel good. OBJECTIVE MEASURES WITH LEVEL OF FUNCTION: Gait Gait Observation: Normal TREATMENT: Therapeutic Exercise: 1: lauryn Gray peak program rate 4 x5 minutes 2: Jogging on treadmill: 2 minute warm up at 3.0 mph, 3 min at 4.5 mph and cool down x1 min at 2.5 mph for a total of 6 minutes. 3: blue t-band(smaller one) monster walk 2 laps facing same direction throughout. B side stepping, monster walk forward and monster walk backward. 4: L SLS on airex blue foam ball toss to rebounder with large physioball 2x15 5: L HS stool scoots x2 laps (~100feet each lap) 6: lateral step ups on and over dome side of BOSU at // bars 2x10 7: squats on platform side of BOSU at // bars 2x15 8: L SLS lateral step down R heel taps from 6 inch step 2x20 9: L HS curl machine 50# 2x15 and 1x10 10: L leg press 112# 3x12 emphasis on form and control 11: L calf raise on leg press 112# 2x10 12: Multi-hip machine 80# B hip flexion, abduction and extension x12 each B 13: two legged hopping in place in front of mirror 3x5 with lots of encouragement. Equal weight distribution encouraged as well as avoidance of medial collapse(genu valgus) with landing. 14: L gastroc stretch at wall reviewed for HEP and continuation encouraged. 15: L SLS R retro lunge with R foot on towel on tile 2x5 Skilled Intervention: Patient was educated in proper exercise technique and purpose for exercises. Skilled judgment was provided in selection of appropriate interventions. Correct performance of therapeutic exercises was facilitated with verbal and visual cuing. Billing Therapeutic Exercise Treatment Minutes: 55 Total Treatment Time Minutes (timed and untimed codes) : 55 Tima Bowden PT [facility] 12-03-2021 Note HNO ID: [id number] Author: Tima Bowden PT Service: ? Author Type: Physical Therapist Type: Progress Notes Filed: 12/03/2021 12:32 PM Note Text: Episode Visit Count: 27 Therapist That Will Oversee The Plan Of Care: Tima Bowden PT Start of Care Date: 08/31/21 Onset Date: 05/14/21 Patient Identified by Name and Date of : Yes REHABILITATION AND SPORTS THERAPY PHYSICAL THERAPY TREATMENT NOTE ASSESSMENT: Dirk Myers tolerated the session with fatigue, expected muscle soreness and no issues. She demonstrated improvements in strength and exercise tolerance. The patient will continue to benefit from ongoing skilled physical therapy to continue with post-operative protocol . PLAN FOR NEXT VISIT: Continue with progression per SCHWARZ protocol and ACL carepath. Progress to tolerance. SUBJECTIVE: Patient Reason for Visit: Pt reports that L knee is doing well and getting better. She denies any pain to start today. She reports having a very busy weekend with school work but that she did not have any issues with her L knee. Pain: Pain Pain Level: 0 Pain Location: Knee - Left Description: (no pain to start today) Frequency: Intermittent Post Treatment Pain Post Treatment Pain Level: No Change Post Treatment Pain Location: Knee - Left Post Treatment Pain Description: (Fatigue only) Post Treatment Symptoms: Pt reported fatigue during and after session today but she denied any incrase in pain. She was pleasantly surprised by the lack of pain with jogging and hopping. OBJECTIVE MEASURES WITH LEVEL OF FUNCTION: Gait Gait Observation: Normal TREATMENT: Therapeutic Exercise: 1: lauryn Gray peak program rate 4 x5 minutes 2: Jogging on treadmill: 1 minute warm up at 3.0 mph, 3 min at 4.0 mph and cool down x1 min at 3.0 mph and x1 min at 2.0 mph for a total of 6 minutes. 3: blue t-band monster walk 2 laps facing same direction throughout. B side stepping, monster walk forward and monster walk backward. 4: L SLS on airex blue foam ball toss to rebounder with large physioball 3x15 5: L HS stool scoots x2 laps (~100feet each lap) 6: lateral step ups on and over dome side of BOSU at // bars 2x10 7: squats on platform side of BOSU at // bars 2x15 8: L SLS lateral step down R heel taps from 6 inch step 2x10 9: L HS curl machine 50# 2x15 and 1x10 10: L leg press 112# 3x12 emphasis on form and control 11: L calf raise on leg press 112# 2x10 12: Multi-hip machine 80# B hip flexion, abduction and extension x10 each B 13: two legged hopping in place in front of mirror 2x5 with lots of encouragement. Equal weight distribution encouraged as well as avoidance of medial collapse(genu valgus) with landing. 14: L gastroc stretch at wall 3x30 seconds Skilled Intervention: Patient was educated in proper exercise technique and purpose for exercises. Skilled judgment was provided in selection of appropriate interventions. Correct performance of therapeutic exercises was facilitated with verbal and visual cuing. Patient education as noted. Billing Therapeutic Exercise Treatment Minutes: 60 Total Treatment Time Minutes (timed and untimed codes) : 60 Tima Bowden PT [facility] 11-30-2021 Note HNO ID: [id number] Author: Tima Bowden PT Service: ? Author Type: Physical Therapist Type: Progress Notes Filed: 11/30/2021 4:17 PM Note Text: Episode Visit Count: 26 Therapist That Will Oversee The Plan Of Care: Tima Bowden PT Start of Care Date: 08/31/21 Onset Date: 05/14/21 Patient Identified by Name and Date of : Yes REHABILITATION AND SPORTS THERAPY PHYSICAL THERAPY TREATMENT NOTE ASSESSMENT: Dirk Myers tolerated the session with fatigue, expected muscle soreness and no issues. She demonstrated improvements in strength and exercise tolerance. The patient will continue to benefit from ongoing skilled physical therapy to continue with post-operative protocol . PLAN FOR NEXT VISIT: Continue with progression per SCHWARZ protocol and ACL carepath. Progress to tolerance. SUBJECTIVE: Patient Reason for Visit: Pt denies any pain to start today and overall feels that she is getting better. She reports being very pleased with the documented progress last session. Pain: Pain Pain Level: 0 Pain Location: Knee - Left Description: (no pain to start today) Frequency: Intermittent Post Treatment Pain Post Treatment Pain Level: 0 Post Treatment Pain Location: Knee - Left Post Treatment Pain Description: (No pain after session, just fatigue) Post Treatment Symptoms: Pt did report some mild symptoms during her workout but she denied any pain as she was leaving. She reports that the variability and intensity of workout was appropriate. She reported only fatique today. OBJECTIVE MEASURES WITH LEVEL OF FUNCTION: TREATMENT: Therapeutic Exercise: 1: Upright bike seat #2 full revolutions from the start, resistance level 7 x6 minutes 2: jogging on treadmill: 1 minute warm up and cool down at 3.0 mph and 2 min at 4.0 mph for a total of 4 minutes. 3: blue t-band monster walk 2 laps facing same direction throughout. B side stepping, monster walk forward and monster walk backward. 4: L SLS ball toss to rebounder with large physioball 3x15 5: L HS stool scoots x2 laps (~100feet each lap) 6: lateral step ups on and over dome side of BOSU at // bars 2x13 7: squats on platform side of BOSU at // bars 2x15 8: L SLS lateral step down R heel taps from 6 inch step 2x20 9: L HS curl machine 50# 3x12 10: L leg press 112# 3x12 emphasis on form and control 11: L calf raise on leg press 112# 3x12 12: Multi-hip machine 70# B hip flexion, abduction and extension x15 each B 13: L prostretch 2x30 seconds 14: *L gastroc stretch at wall 3x30 seconds Skilled Intervention: Patient was educated in proper exercise technique and purpose for exercises. Reviewed and educated patient on additions/changes for home exercise program as above (*). Skilled judgment was provided in selection of appropriate interventions. Provided written instruction for home exercise program to facilitate proper performance and compliance. Correct performance of therapeutic exercises was facilitated with verbal and visual cuing. Patient education as noted. Billing Therapeutic Exercise Treatment Minutes: 60 Total Treatment Time Minutes (timed and untimed codes) : 60 Tima Bowden PT [facility] 11-27-2021 Note HNO ID: [id number] Author: Tima Bowden PT Service: ? Author Type: Physical Therapist Type: Progress Notes Filed: 11/27/2021 5:44 PM Note Text: Episode Visit Count: 25 Therapist That Will Oversee The Plan Of Care: Tima Bowden PT Start of Care Date: 08/31/21 Onset Date: 05/14/21 Patient Identified by Name and Date of : Yes REHABILITATION AND SPORTS THERAPY PHYSICAL THERAPY PROGRESS REPORT PLAN OF CARE UPDATE: Assessment: Dirk Myers demonstrates difficulty with single leg WBing tasks on involved LE and improvements in rising from a chair, walking, stair negotiation, lifting, recreational activities, kneeling and squatting. She has met several goals but not all and will benefit from a continuation of supervised PT to regain prior functional status. Patient continues to present with impairments in balance and strength that interfere with running;jumping;kneeling . Current prognosis is Excellent due to: current objective clinical presentation;good overall health status;acuteness of condition;positive past response to therapy;good support system/ coping skills;within-session changes . She will benefit from continued skilled therapy services to meet the updated goals for this plan of care as noted below. Surgery: 08/27/2021 Updated: 10/01/21 and 10/29/21 and 11/27/21 Goals for Episode of Care: created on 08/31/21 through 11/23/21 Phase 1 to Phase 2 Criteria: Criterion for Progression: Complete 20 straight leg raises with no quadriceps lag. - met Range of motion Full active knee extension (within 3 degrees) and Active Flexion to 110 degrees., - met Full quadriceps activation: full, without visual inhibition. - met Normalized Gait. - met Discontinuation of Crutch/Immobilizer devices. - met Phase 2 to Phase 3 Criteria: Criterion for Progression: Range of motion: full, equal to contralateral. - met Stairs: 10-12 steps, ascent/descent in a reciprocal pattern with (6-8 height). - met Double leg squat: 60-90 degree bend, equal weight bearing, proper mechanics. - met Demonstrates functional strength and control with performing daily activities. - met Phase 3 to Phase 4 Criteria: Criterion for Progression: Range of Motion: maintained full and equal to contralateral limb. - met Strength symmetry testin% symmetry using any of the following methods: dynamometer testing. - met Motor control: 6 inch eccentric step-downs with heel tap, 20 reps, proper mechanics. - partially met, unsteady with less control on involved Hopping in place: double leg and single leg, no pain, proper mechanics. - not tested Outcomes: IKDC greater than or equal to 7, ADL-RSI greater than or equal to 50-60 score. - met Phase 4 to Phase 5 Criteria: Criterion for Progression: Maximum vertical jump without pain or instability. 80% of contralateral on single hop tests. Normalized running. Y-balance - anterior reach: less than 4 cm asymmetry. - not met, 9.5 cm asymmetry Strength: 85% symmetry. - met IKDC Question (Global Rating of Knee Function) score of 8 or greater. - met Phase 5 to Return to Sport Criteria: Criterion for Progression: Strength: Greater than or equal to 90% symmetry. Hop testin% symmetry with proper mechanics. Pain free transition to activities and no functional complaints. Confidence when running, cutting, jumping at full speed. IKDC Question (Global Rating of Knee Function) of > 9. Patient Goals: regain prior functional status Planned Interventions, Frequency, and Duration: 2x/week, 4 weeks Total Number of Visits Planned: 8 Patient to be seen for Therapeutic exercise (07112);Neuromuscular re-education (40056);Manual therapy (38239);Therapeutic activities (05356);Self-custodial management (18175);Patient/Family/Caregiver Education;Body Mechanics Training PLAN FOR NEXT VISIT: Continue with progression per SCHWARZ protocol and ACL carepath. Progress to tolerance. Classification ACL-RSI: 86 IKDC #10: 9 SUBJECTIVE: Patient Reason for Visit: Pt reports that overall she is doing very well and getting progressively better. She reports that she is not 100% but has no pain or significant functional limitations for basic ADLs. She reports improvements on the stairs but that if she sits for prolonged periods with her L LE in the dependent position, her L knee gets stiff and swollen. She reports that her only remaining functional limitations are limited because she chooses to limit herself with running, jumping and kneeling. She reports that she even forgets at times that she has not tested running and attempts to jog to get somewhere quickly. Functional Limitations: running;jumping;kneeling Pain: Pain Pain Level: 0 Pain Location: Knee - Left Description: (no pain) Frequency: Intermittent Post Treatment Pain Post Treatment Pain Level: No Change Post Treatment Pain Location: Knee - Left Post Treatment Pain Description: (fatigue (more content not included)... [facility] 2021 Note HNO ID: [id number] Author: Tima Bowden PT Service: ? Author Type: Physical Therapist Type: Progress Notes Filed: 2021 3:14 PM Note Text: Episode Visit Count: 24 Therapist That Will Oversee The Plan Of Care: Tima Bowden PT Start of Care Date: 08/31/21 Onset Date: 05/14/21 Patient Identified by Name and Date of : Yes REHABILITATION AND SPORTS THERAPY PHYSICAL THERAPY TREATMENT NOTE ASSESSMENT: Dirk Myers tolerated the session with fatigue, expected muscle soreness and no issues. She demonstrated improvements in strength and exercise tolerance. The patient will continue to benefit from ongoing skilled physical therapy for reassessment by supervising therapist and to continue with post-operative protocol. PLAN FOR NEXT VISIT: Continue with progression per SCHWARZ protocol and ACL carepath. Re-assess for plan of care update. SUBJECTIVE: Patient Reason for Visit: Pt reports continued progressive improvements overall. She denies any pain to start today. She denies any new issues or problems. Pain: Pain Pain Level: 0 Pain Location: Knee - Left Description: (no pain to start today) Frequency: Intermittent Post Treatment Pain Post Treatment Pain Level: 0 Post Treatment Pain Location: Knee - Left Post Treatment Pain Description: (fatigue only) Post Treatment Symptoms: Pt denied any increase in pain during or after therex but she did report expected fatigue. OBJECTIVE MEASURES WITH LEVEL OF FUNCTION: TREATMENT: Therapeutic Exercise: 1: Upright bike seat #2 full revolutions from the start, resistance level 7 x6 minutes 2: Stairmaster, steady climb program rate 3 x5 minutes 3: blue t-band monster walk 2 laps facing same direction throughout. B side stepping, monster walk forward and monster walk backward. 4: L SLS ball toss to rebounder with large physioball 3x10 at farther distance today 5: L HS stool scoots x2 laps (~100feet each lap) 6: lateral step ups on and over dome side of BOSU at // bars 2x13 7: squats on platform side of BOSU at // bars 2x15 8: L forward lunges onto BOSU 2x15 at // bars 9: L HS curl machine 50# 3x10 10: L leg press 112# 3x10 emphasis on form and control 11: L calf raise on leg press 112# 3x10 12: Multi-hip machine 70# B hip flexion, abduction and extension x15 each B Skilled Intervention: Patient was educated in proper exercise technique and purpose for exercises. Skilled judgment was provided in selection of appropriate interventions. Correct performance of therapeutic exercises was facilitated with verbal, visual and tactile cuing. Patient education as noted. Billing Therapeutic Exercise Treatment Minutes: 55 Total Treatment Time Minutes (timed and untimed codes) : 55 Tima Bowden PT [facility] 11-19-2021 Note HNO ID: [id number] Author: Tima Bowden PT Service: ? Author Type: Physical Therapist Type: Progress Notes Filed: 11/19/2021 8:44 AM Note Text: Episode Visit Count: 23 Therapist That Will Oversee The Plan Of Care: Tima Bowden PT Start of Care Date: 08/31/21 Onset Date: 05/14/21 Patient Identified by Name and Date of : Yes REHABILITATION AND SPORTS THERAPY PHYSICAL THERAPY TREATMENT NOTE ASSESSMENT: Dirk Myers tolerated the session with fatigue and expected muscle soreness. She demonstrated improvements in strength and exercise tolerance. The patient will continue to benefit from ongoing skilled physical therapyto continue with post-operative protocol . PLAN FOR NEXT VISIT: Continue with progression per SCHWARZ protocol and ACL carepath. SUBJECTIVE: Patient Reason for Visit: Pt reports getting a good workout last session but she denies any increased pain or problems. She denies any pain to start today and she denies any significant changes over the weekend. Pain: Pain Pain Level: 0 Pain Location: Knee - Left Description: (no pain to start) Frequency: Intermittent Post Treatment Pain Post Treatment Pain Level: 0 Post Treatment Pain Location: Knee - Left Post Treatment Pain Description: (fatigue) Post Treatment Symptoms: During and after session pt reported fatigue but denied any increase in pain, just a good workout. OBJECTIVE MEASURES WITH LEVEL OF FUNCTION: TREATMENT: Therapeutic Exercise: 1: Upright bike seat #2 full revolutions from the start, resistance level 7 x6 minutes 2: lauryn Gray peak program rate 3 x5 minutes 3: green t-band monster walk 2 laps facing same direction throughout. B side stepping, monster walk forward and monster walk backward. 4: L SLS ball toss to rebounder with large physioball 3x15 at farther distance today 5: L HS stool scoots x2 laps (~100feet each lap) 6: lateral step ups on and over dome side of BOSU at // bars 2x10 7: squats on platform side of BOSU at // bars 2x12 8: L forward lunges onto BOSU 1x15 and 1x12 at // bars 9: L HS curl machine 40# 3x15 10: L leg press 112# 3x10 emphasis on form and control 11: L calf raise on leg press 112# 3x10 12: Multi-hip machine 70# B hip flexion, abduction and extension x12 each B Skilled Intervention: Patient was educated in proper exercise technique and purpose for exercises. Skilled judgment was provided in selection of appropriate interventions. Correct performance of therapeutic exercises was facilitated with verbal and visual cuing. Billing Therapeutic Exercise Treatment Minutes: 45 Total Treatment Time Minutes (timed and untimed codes) : 45 Tima Bowden PT [facility] 11-16-2021 Note HNO ID: [id number] Author: Tima Bowden PT Service: ? Author Type: Physical Therapist Type: Progress Notes Filed: 11/16/2021 3:56 PM Note Text: Episode Visit Count: 22 Therapist That Will Oversee The Plan Of Care: Tima Bowden PT Start of Care Date: 08/31/21 Onset Date: 05/14/21 Patient Identified by Name and Date of : Yes REHABILITATION AND SPORTS THERAPY PHYSICAL THERAPY TREATMENT NOTE ASSESSMENT: Dirk Myers tolerated the session with fatigue and expected muscle soreness. She demonstrated improvements in strength and exercise tolerance. The patient will continue to benefit from ongoing skilled physical therapy to progress toward set goals and to continue with post-operative protocol . PLAN FOR NEXT VISIT: Continue with progression per SCHWARZ protocol and ACL carepath. SUBJECTIVE: Patient Reason for Visit: Pt reports that she has been less physically active lately. She reports that as a result of being occupied at her desk for work, her knee feels stiff and less flexible. She reports comnpliance with HEP and denies any pain to start today. She reports getting a good workout last session. Pain: Pain Pain Level: 0 Pain Location: Knee - Left Description: (no pain to start today) Frequency: Intermittent Post Treatment Pain Post Treatment Pain Level: No Change Post Treatment Pain Location: Knee - Left Post Treatment Pain Description: (fatigue only) Post Treatment Symptoms: Pt denied any increase in pain, just fatigue from a good workout. OBJECTIVE MEASURES WITH LEVEL OF FUNCTION: TREATMENT: Therapeutic Exercise: 1: Upright bike seat #2 full revolutions from the start, resistance level 6 x6 minutes 2: lauryn Gray peak program rate 3 x5 minutes 3: green t-band monster walk 2 laps facing same direction throughout. B side stepping, monster walk forward and monster walk backward. 4: L SLS ball toss to rebounder with large physioball 3x15 at farther distance today 5: L HS stool scoots x2 laps (~100feet each lap) 6: lateral step ups on and over dome side of BOSU at // bars 2x10 7: squats on platform side of BOSU at // bars 2x12 8: L forward lunges onto BOSU 2x12 at // bars 9: L HS curl machine 40# 3x15 10: L leg press 88# 2x12 emphasis on form and control 11: L calf raise on leg press 88# 2x12 12: Multi-hip machine 70# B hip flexion, abduction and extension x10 each B Skilled Intervention: Patient was educated in proper exercise technique and purpose for exercises. Skilled judgment was provided in selection of appropriate interventions. Correct performance of therapeutic exercises was facilitated with verbal and visual cuing. Billing Therapeutic Exercise Treatment Minutes: 45 Total Treatment Time Minutes (timed and untimed codes) : 45 Tima Bowden PT [facility] 11-13-2021 Note HNO ID: [id number] Author: Tima Bowden PT Service: ? Author Type: Physical Therapist Type: Progress Notes Filed: 11/13/2021 3:03 PM Note Text: Episode Visit Count: 21 Therapist That Will Oversee The Plan Of Care: Tima Bowden PT Start of Care Date: 08/31/21 Onset Date: 05/14/21 Patient Identified by Name and Date of : Yes REHABILITATION AND SPORTS THERAPY PHYSICAL THERAPY TREATMENT NOTE ASSESSMENT: Dirk Myers demonstrated improvements in strength and exercise tolerance. The patient will continue to benefit from ongoing skilled physical therapy for supervised progression of therex. PLAN FOR NEXT VISIT: Continue with progression per SCHWARZ protocol and ACL carepath. SUBJECTIVE: Patient Reason for Visit: Pt reports that overall she is feeling approximately the same. She reports intermittent pain that is extremely mild and described as discomfort, not pain. She wonders if the recent cold weather plays a role. She reports compliance with HEP but that the lateral step down heel taps were very difficult at home recently. She wonders if her stair height is greater. Pain: Pain Pain Level: 0 Pain Location: Knee - Left Description: ( discomfort ) Frequency: Intermittent Post Treatment Pain Post Treatment Pain Level: No Change Post Treatment Pain Location: Knee - Left Post Treatment Pain Description: (fatigue) Post Treatment Symptoms: Pt reported considerable fatigue after today's session but denied any increase in pain. OBJECTIVE MEASURES WITH LEVEL OF FUNCTION: TREATMENT: Therapeutic Exercise: 1: Upright bike seat #2 full revolutions from the start, resistance level 6 x6 minutes 2: lauryn Gray peak program rate 3 x5 minutes 3: green t-band monster walk 1 lap facing same direction throughout. B side stepping, monster walk forward and monster walk backward. 4: L SLS ball toss to rebounder with large physioball 3x12 at farther distance today 5: L HS stool scoots x2 laps (~100feet each lap) 6: lateral step ups on and over large dynadisc at // bars 2x10 7: squats on platform side of BOSU at // bars 2x12 8: L forward lunges onto large dynadisc 2x10 at // bars 9: L HS curl machine 40# 3x15 10: L leg press 88# 1x10 and 1x12 emphasis on form and control 11: L calf raise on leg press 88# 1x10 and 1x12 12: Multi-hip machine 60# B hip flexion, abduction and extension x12 each B Skilled Intervention: Patient was educated in proper exercise technique and purpose for exercises. Skilled judgment was provided in selection of appropriate interventions. Correct performance of therapeutic exercises was facilitated with verbal and visual cuing. Billing Therapeutic Exercise Treatment Minutes: 48 Total Treatment Time Minutes (timed and untimed codes) : 48 Tima Bowden PT [facility] 11-09-2021 Note HNO ID: [id number] Author: Tima Bowden PT Service: ? Author Type: Physical Therapist Type: Progress Notes Filed: 11/09/2021 12:14 PM Note Text: Episode Visit Count: 20 Therapist That Will Oversee The Plan Of Care: Tima Bowden PT Start of Care Date: 08/31/21 Onset Date: 05/14/21 Patient Identified by Name and Date of : Yes REHABILITATION AND SPORTS THERAPY PHYSICAL THERAPY TREATMENT NOTE ASSESSMENT: Dirk Myers demonstrated improvements in strength and exercise tolerance with improving balance. The patient will continue to benefit from ongoing skilled physical therapy for supervised progression of therex. PLAN FOR NEXT VISIT: Continue with progression per SCHWARZ protocol and ACL carepath. SUBJECTIVE: Patient Reason for Visit: Pt reports getting a good workout last session without any increase in pain. She denies any pain to start today and denies any dramatic changes overall since last session. She does report one episode of pain with returning to standing after a deep squat at home. This pain did not linger but it did get her attention. She reports compliance with HEP 2x day most days and always 1x day. Pain: Pain Pain Level: 0 Pain Location: Knee - Left Description: (no pain to start today) Frequency: Intermittent Post Treatment Pain Post Treatment Pain Level: 0 Post Treatment Pain Location: Knee - Left Post Treatment Pain Description: (fatigue only) Post Treatment Symptoms: After session today, pt reported considerable fatigue but denied any increase in pain. OBJECTIVE MEASURES WITH LEVEL OF FUNCTION: TREATMENT: Therapeutic Exercise: 1: Upright bike seat #2 full revolutions from the start, resistance level 6 x6 minutes 2: Stairmaster, random program rate 3 x5 minutes 4: L SLS ball toss to rebounder with large physioball 3x15 5: L HS stool scoots x2 laps (~100feet each lap) 6: lateral step ups on and over dome side of BOSU at // bars 2x12 7: squats on platform side of BOSU at // bars 2x12 8: L forward lunges onto dome side of BOSU 2x10 at // bars 9: L HS curl machine 40# 3x15 10: L leg press 64# 2x15 emphasis on form and control 11: L calf raise on leg press 64# 2x15 12: Multi-hip machine 60# B hip flexion, abduction and extension x10 each B Skilled Intervention: Patient was educated in proper exercise technique and purpose for exercises. Skilled judgment was provided in selection of appropriate interventions. Correct performance of therapeutic exercises was facilitated with verbal and visual cuing. Billing Therapeutic Exercise Treatment Minutes: 53 Total Treatment Time Minutes (timed and untimed codes) : 53 Tima Bowden PT [facility] 11-05-2021 Note HNO ID: [id number] Author: Tima Bowden PT Service: ? Author Type: Physical Therapist Type: Progress Notes Filed: 11/05/2021 10:31 AM Note Text: Episode Visit Count: 19 Therapist That Will Oversee The Plan Of Care: Tima Bowden PT Start of Care Date: 08/31/21 Onset Date: 05/14/21 Patient Identified by Name and Date of : Yes REHABILITATION AND SPORTS THERAPY PHYSICAL THERAPY TREATMENT NOTE ASSESSMENT: Dirk Myers demonstrated improvements in strength and exercise tolerance. The patient will continue to benefit from ongoing skilled physical therapy for supervised progression of therex following SCHWARZ protocol and ACL carepath. PLAN FOR NEXT VISIT: Continue with progression per SCHWARZ protocol and ACL carepath. SUBJECTIVE: Patient Reason for Visit: Pt reports getting a really good workout last session. She denies any new issues or problems today. She reports being active over the weekend without any issues. Pain: Pain Pain Level: 0 Pain Location: Knee - Left Description: (no pain to start today) Frequency: Intermittent Post Treatment Pain Post Treatment Pain Level: 0 Post Treatment Pain Location: Knee - Left Post Treatment Pain Description: (fatigue) Post Treatment Symptoms: During and after session pt reported considerable fatigue but she denied any increase in pain, just fatigue from a good workout OBJECTIVE MEASURES WITH LEVEL OF FUNCTION: TREATMENT: Therapeutic Exercise: 1: Upright bike seat #2 full revolutions from the start, resistance level 6 x6 minutes 2: Stairmaster, roller coaster program rate 3 x5 minutes 4: L SLS on blue foam square at // bars 3x30 seconds 5: L HS stool scoots x1 lap (~100feet) 6: lateral step ups on and over dome side of BOSU at // bars 2x12 7: squats on platform side of BOSU at // bars 2x10 8: L TKE with purple band 3x15 9: L HS curl machine 40# 3x15 10: L leg press 64# 2x15 emphasis on form and control 11: L calf raise on leg press 64# 2x15 12: Multi-hip machine 50# B hip flexion, abduction and extension x15 each B Skilled Intervention: Patient was educated in proper exercise technique and purpose for exercises. Skilled judgment was provided in selection of appropriate interventions. Correct performance of therapeutic exercises was facilitated with verbal and visual cuing. Billing Therapeutic Exercise Treatment Minutes: 45 Total Treatment Time Minutes (timed and untimed codes) : 45 Tima Bowden PT [facility] 11-02-2021 Note HNO ID: [id number] Author: Tima Bowden PT Service: ? Author Type: Physical Therapist Type: Progress Notes Filed: 11/02/2021 4:56 PM Note Text: Episode Visit Count: 18 Therapist That Will Oversee The Plan Of Care: Tima Bowden PT Start of Care Date: 08/31/21 Onset Date: 05/14/21 Patient Identified by Name and Date of : Yes REHABILITATION AND SPORTS THERAPY PHYSICAL THERAPY TREATMENT NOTE ASSESSMENT: Dirk Myers demonstrated improvements in strength and exercise tolerance. The patient will continue to benefit from ongoing skilled physical therapy for supervised progression of therex following ACL carepath and SCHWARZ protocol. PLAN FOR NEXT VISIT: Continue with progression per SCHWARZ protocol and ACL carepath. SUBJECTIVE: Patient Reason for Visit: Pt reports that overall she is still doing well with no new issues or problems. She reports receiving her COVID booster yesterday and she feels generally poor today as a result. She denies any pain to start today. She reports compliance with HEP 2x day. Pain: Pain Pain Level: 0 Pain Location: Knee - Left Description: (no pain to start today) Frequency: Intermittent Post Treatment Pain Post Treatment Pain Level: No Change Post Treatment Pain Location: Knee - Left Post Treatment Pain Description: (fatigue only) Post Treatment Symptoms: After session today, pt reported considerable fatigue but she denied any increased pain. She reported that leg press and hamstring curl machines were expecially tiring today. OBJECTIVE MEASURES WITH LEVEL OF FUNCTION: Knee Observations R Circumference 6 inches above mid-patella (inches): 22 inches R Circumference mid patella (inches): 16 inches R Circumference 6 inches below mid-patella (inches): 15 inches L Circumference 6 inches above mid-patella (inches): 21.75 inches L Circumference mid patella (inches): 16 inches L Circumference 6 inches below mid-patella (inches): 14.5 inches LE AROM L LE AROM: supine L Knee Extension: 2 Degrees L Knee Flexion: 143 Degrees TREATMENT: Therapeutic Exercise: 1: Upright bike seat #2 full revolutions from the start, resistance level 5 x6 minutes 2: Stairmaster, manual program rate 3 x5 minutes 3: Quad sets 5 second hold 1x10 4: Heel slides x10 L (one with green strap and one without) 5: L HS stool scoots x1 lap (~100feet) (Pt has good form to 60+ degrees) 6: lateral step ups on and over dome side of BOSU at // bars 2x12 8: L TKE with purple band 3x15 9: L HS curl machine 40# 3x12 10: L leg press 64# 2x15 emphasis on form and control 11: L calf raise on leg press 64# 2x15 12: Multi-hip machine 50# B hip flexion, abduction and extension x10 each B 13: *HEP revised per below for progression of strengthening (squats, forward step ups and lateral step ups.) Skilled Intervention: Patient was educated in proper exercise technique and purpose for exercises. Reviewed and educated patient on additions/changes for home exercise program as above (*). Skilled judgment was provided in selection of appropriate interventions. Provided written instruction for home exercise program to facilitate proper performance and compliance. Correct performance of therapeutic exercises was facilitated with verbal and visual cuing. Billing Therapeutic Exercise Treatment Minutes: 45 Total Treatment Time Minutes (timed and untimed codes) : 45 Tima Bowden PT [facility] 10-29-2021 Note HNO ID: [id number] Author: Tima Bowden PT Service: ? Author Type: Physical Therapist Type: Progress Notes Filed: 10/29/2021 5:19 PM Note Text: Episode Visit Count: 17 Therapist That Will Oversee The Plan Of Care: Tima Bowden PT Start of Care Date: 08/31/21 Onset Date: 05/14/21 Patient Identified by Name and Date of : Yes REHABILITATION AND SPORTS THERAPY PHYSICAL THERAPY PROGRESS REPORT PLAN OF CARE UPDATE: Assessment: Dirk Myers exhibits difficulty with functional L LE strength and improvements in ROM, gait, stairs and strength. She continues to be limited with walking her dog, stair negotiation, running, jumping and squatting. She is progressing as expected towards her therapy goals as demonstrated by: home exercise program compliance, pain levels, documented subjective information on progress, documented objective information regarding gait, independence in exercise, overall function, range of motion and strength and appointment compliance. She will benefit from continued skilled therapy requiring supervised progression of therex in order to further improve strength, proprioception and to facilitate a return to prior functional level. Functional gains: Improved gait quality Improved ability to climb steps Increased independence with HEP Increased ROM Increased strength Decreased intensity of pain Decreased frequency of pain Updated: 10/01/21 and 10/29/21 Goals for Episode of Care: created on 08/31/21 through 11/23/21 Phase 1 to Phase 2 Criteria: Criterion for Progression: Complete 20 straight leg raises with no quadriceps lag. - met Range of motion Full active knee extension (within 3 degrees) and Active Flexion to 110 degrees., - met Full quadriceps activation: full, without visual inhibition. - met Normalized Gait. - met Discontinuation of Crutch/Immobilizer devices. - met Phase 2 to Phase 3 Criteria: Criterion for Progression: Range of motion: full, equal to contralateral. - met Stairs: 10-12 steps, ascent/descent in a reciprocal pattern with (6-8 height). - partially met Double leg squat: 60-90 degree bend, equal weight bearing, proper mechanics. - met Demonstrates functional strength and control with performing daily activities. - partially met Phase 3 to Phase 4 Criteria: Criterion for Progression: Range of Motion: maintained full and equal to contralateral limb. - met Strength symmetry testin% symmetry using any of the following methods: Dynamometer testing. - partially met Motor control: 6 inch eccentric step-downs with heel tap, 20 reps, proper mechanics. - partially met Hopping in place: double leg and single leg, no pain, proper mechanics. - not tested Outcomes: IKDC greater than or equal to 7, ADL-RSI greater than or equal to 50-60 score. - met Phase 4 to Phase 5 Criteria: Criterion for Progression: Maximum vertical jump without pain or instability. 80% of contralateral on single hop tests. Normalized running. Y-balance - anterior reach: less than 4 cm asymmetry. Strength: 85% symmetry. IKDC Question (Global Rating of Knee Function) score of 8 or greater. Phase 5 to Return to Sport Criteria: Criterion for Progression: Strength: Greater than or equal to 90% symmetry. Hop testin% symmetry with proper mechanics. Pain free transition to activities and no functional complaints. Confidence when running, cutting, jumping at full speed. IKDC Question (Global Rating of Knee Function) of > 9. Patient Goals: regain prior functional status Planned Interventions, Frequency, and Duration: 2x/week, 8 weeks Total Number of Visits Planned: 16 Patient to be seen for Therapeutic exercise (71409);Neuromuscular re-education (14976);Manual therapy (49472);Therapeutic activities (63228);Self-custodial management (20896);Gait Training (57803);Patient/Family/Caregiver Education;Body Mechanics Training;General Conditioning PLAN FOR NEXT VISIT: Continue with progression per SCHWARZ protocol and ACL carepath. Classification ACL-RSI: 77 IKDC #10: 8 Prognosis: Excellent Excellent due to: current objective clinical presentation;good overall health status;positive past response to therapy;acuteness of condition;good support system/ coping skills SUBJECTIVE: Patient Reason for Visit: Pt reports continued progressive improvements overall. She reports that she is gaining confidence but she still feels like she has a long way to go to be back to normal. She reports compliance with HEP 2x day most days and she denies any pain currently. She asks if she can resume walking her dog. She reports that her dog is 60 pounds and pulls a lot. Pain: Pain Pain Level: 0 Pain Location: Knee - Left Description: (no pain to start today) Frequency: Intermittent Post Treatment Pain Post Treatment Pain Level: No Change Post Treatment Pain Location: Knee - Left Post Treatment Pain Description: (fatigue only) (more content not included)... [facility] 10-25-2021 Note HNO ID: [id number] Author: Tima Bowden PT Service: ? Author Type: Physical Therapist Type: Progress Notes Filed: 10/25/2021 11:34 AM Note Text: Episode Visit Count: 16 Therapist That Will Oversee The Plan Of Care: Tima Bowden PT Start of Care Date: 08/31/21 Onset Date: 05/14/21 Patient Identified by Name and Date of : Yes REHABILITATION AND SPORTS THERAPY PHYSICAL THERAPY TREATMENT NOTE ASSESSMENT: Dirk Myers demonstrated improvements in strength and exercise tolerance. The patient will continue to benefit from ongoing skilled physical therapy for supervised progression of therex and ACL carepath. No laxity in R knee today with Teresita's. PLAN FOR NEXT VISIT: Continue with progression per SCHWARZ protocol and ACL carepath. SUBJECTIVE: Patient Reason for Visit: Pt reports that she is still doing well and she denies any pain to start today. She does report experiencing some slight pain last night when she attempted to do some dancing and did not pay attention to the fact that she did some pivoting. This pain was short duration and she denies any instability with this. She reports that after last visit she felt like she received a good workout for the first time since her injury. She denies any increased pain, just fatigue and a good workout. Pain: Pain Pain Level: 0 Pain Location: Thigh - Left;Knee - Left Description: (no pain to start today) Frequency: Intermittent Post Treatment Pain Post Treatment Pain Level: No Change Post Treatment Pain Location: Knee - Left Post Treatment Pain Description: (appropriate fatigue) Post Treatment Symptoms: During and after session pt reported an appropriate level of fatigue but no increase in pain. OBJECTIVE MEASURES WITH LEVEL OF FUNCTION: LE AROM L LE AROM: supine L Knee Extension: 1 Degrees L Knee Flexion: 139 Degrees Special Tests - Knee Knee Special Tests: Teresita Teresita: Right Negative;Left Negative Gait Gait Observation: Normal TREATMENT: Therapeutic Exercise: 1: Upright bike seat #2 full revolutions from the start, resistance level 5 x6 minutes 3: Quad sets 5 second hold 1x10 4: Heel slides 1x10 L 5: squats at // bars 3x10 emphasis on form and technique using mirror 6: lateral step ups on and over dome side of BOSU at // bars 2x10 7: lateral step down heel taps with L foot on 6 inch step 2x10 8: L TKE with purple band 3x10 9: L HS curl machine 40# 3x10 10: L leg press 40# 2x10 emphasis on form and control 11: L single leg stance on blue square foam 3x30 seconds 12: Multi-hip machine 40# B hip flexion, abduction and extension x12 each B Skilled Intervention: Patient was educated in proper exercise technique and purpose for exercises. Skilled judgment was provided in selection of appropriate interventions. Correct performance of therapeutic exercises was facilitated with verbal, visual and tactile cuing. Patient education as noted. Billing Therapeutic Exercise Treatment Minutes: 45 Total Treatment Time Minutes (timed and untimed codes) : 45 Tima Bowden PT [facility] 10-23-2021 Note HNO ID: [id number] Author: Tima Bowden PT Service: ? Author Type: Physical Therapist Type: Progress Notes Filed: 10/23/2021 11:42 AM Note Text: Episode Visit Count: 15 Therapist That Will Oversee The Plan Of Care: Tima Bowden PT Start of Care Date: 08/31/21 Onset Date: 05/14/21 Patient Identified by Name and Date of : Yes REHABILITATION AND SPORTS THERAPY PHYSICAL THERAPY TREATMENT NOTE ASSESSMENT: Dirk Krause Diannabruno demonstrated improvements in ROM, strength and exercise tolerance. The patient will continue to benefit from ongoing skilled physical therapy for supervised progression of therex per carepath and SCHWARZ protocol. PLAN FOR NEXT VISIT: Continue with progression per SCHWARZ protocol and ACL carepath. SUBJECTIVE: Patient Reason for Visit: Pt denies any significant changes overall since last session. She reports walking the [employer] [place] in [place] two days ago that may have contributed to increased lateral left knee soreness today. She denies any pain to start today but at different times during therex today, she did have some slight pain. Pain: Pain Pain Level: 0 Pain Location: Thigh - Left;Knee - Left Description: (no pain to start but mild 2-3/10 pain during a few exercises) Frequency: Intermittent Post Treatment Pain Post Treatment Pain Level: No Change Post Treatment Symptoms: During and after session today, pt reported fatigue but denied any increase in pain as she was leaving. She reports that this was the first session that gave her a significant workout and made her warm. OBJECTIVE MEASURES WITH LEVEL OF FUNCTION: LE AROM L LE AROM: supine R Knee Extension: 2 Degrees R Knee Flexion: 140 Degrees TREATMENT: Therapeutic Exercise: 1: Upright bike seat #2 full revolutions from the start, resistance level 5 x6 minutes 2: supine L piriformis stretch 3x30 seconds 3: Quad sets 5 second hold 1x10 4: Heel slides 1x10 with green strap 5: squats at // bars 2x15 emphasis on form and technique using mirror 6: lateral step ups on and over dome side of BOSU at // bars 2x10 7: lateral step down heel taps with L foot on 4 inch step 2x20 8: L TKE with blue band 3x10 9: L HS curl machine 30# 3x12 10: L single leg bridge 2x10 Skilled Intervention: Patient was educated in proper exercise technique and purpose for exercises. Skilled judgment was provided in selection of appropriate interventions. Correct performance of therapeutic exercises was facilitated with verbal, visual and tactile cuing. Patient education as noted. Billing Therapeutic Exercise Treatment Minutes: 45 Total Treatment Time Minutes (timed and untimed codes) : 45 Tima Bowden PT [facility] 10-17-2021 Note HNO ID: [id number] Author: Tima Bowden PT Service: ? Author Type: Physical Therapist Type: Progress Notes Filed: 10/17/2021 3:23 PM Note Text: Episode Visit Count: 14 Therapist That Will Oversee The Plan Of Care: Tima Bowden PT Start of Care Date: 08/31/21 Onset Date: 05/14/21 Patient Identified by Name and Date of : Yes REHABILITATION AND SPORTS THERAPY PHYSICAL THERAPY TREATMENT NOTE ASSESSMENT: Dirk Myers demonstrated difficulty with intermittent left lateral leg pain which is relieved with extension based exercises. She noted fatigue with exercises in therapy today with no pain at end of treatment. Press ups at end of treatment felt good to patient. The patient will continue to benefit from ongoing skilled physical therapy for progression of strength. PLAN FOR NEXT VISIT: Continue with progression per SCHWARZ protocol and ACL carepath. SUBJECTIVE: Patient Reason for Visit: Patient reports left lateral leg is bothering her more today. She reports taking a long bath last night and was in a flexed position. Pain: Pain Pain Level: 1 Pain Location: Thigh - Left (left lateral lower leg) Description: Dull Frequency: Intermittent Post Treatment Pain Post Treatment Pain Level: 0 Post Treatment Symptoms: feels tired with no pain OBJECTIVE MEASURES WITH LEVEL OF FUNCTION: LE AROM L Knee Flexion: 137 Degrees TREATMENT: Therapeutic Exercise: 1: Upright bike seat #2 full revolutions from the start, resistance level 4 x6 minutes 2: Prone alternate hip extension 2x10 3: Prone propped on elbows x2 min 4: Prone press ups 1x10 and press ups with exhale 1x10 5: Quad sets 5 second hold 2x10 6: Heel slides 2x10 7: Wall slides 2x 10 (education to stay in painfree range) 8: TRX squats 2x12 9: Squats to tolerated depth at // bars 2x10 with chair behind with emphasois on proper form 10: Step ups onto 9 step forward and sideways 2x10 each 11: *Heel taps from 3 step facing forward and lateral 2x10 with mirror for visual feedback. Stressed good form over everything. x10 reps (pt instructed to cease if this causes pain or if she feels weak performing this) 12: L HS curl machine 30# 2x10 13: prones press ups with exhale at end of treatment 2x10 Skilled Intervention: Patient was educated in proper exercise technique and purpose for exercises. Skilled judgment was provided in selection of appropriate interventions. Correct performance of therapeutic exercises was facilitated with verbal and visual cuing. Billing Therapeutic Exercise Treatment Minutes: 40 Total Treatment Time Minutes (timed and untimed codes) : 40 Jahaira Shin, DIRECTOR HOSPICE OPERATIONS Tima Bowden, PT [facility] 10-15-2021 Note HNO ID: [id number] Author: Nina Babin MD Service: ? Author Type: Physician Type: Progress Notes Filed: 10/15/2021 12:29 PM Note Text: DATE OF PROCEDURE:?August 27, 2021 OPERATION: 1.?Left?knee arthroscopically-assisted anterior cruciate ligament reconstruction with quintuple?stranded hamstring autograft 2. Diagnostic arthroscopy. 3. Examination under anesthesia. 4.??Left knee?partial lateral meniscectomy REF: Tima Bowden virtual visit Interval history: Dirk Myers returns today status post left knee surgery. Chief complaint is resolved left knee pain. Doing well from a knee standpoint. She is having some lateral and anterior thigh symptoms. No true buttock or sciatic symptoms . Review of Systems: CV: No chest pain Pulm: No short of breath HEENT: No head ache General: no fevers, chills, nausea/vomiting, malaise Physical Examination: This is a well appearing, well nourished patient in no acute distress. Head is normocephalic and atraumatic. White sclera and pink conjunctiva. Mucous membranes are moist. Breathes easily and has normal chest wall excursion. Affect is normal. Imaging: none Impression: Dirk Myers is a 25 year old female, who is 2 months status post left knee ACLR and partial lateral meniscectomy. Doing great . Plan: 1. Reassurance 2. return to clinic in 1 month 3. Continue PT Nina Babin MD [facility] 10-15-2021 Note HNO ID: [id number] Author: Danielito Acosta PT Service: ? Author Type: Physical Therapist Type: Progress Notes Filed: 10/15/2021 10:42 AM Note Text: Episode Visit Count: 13 Therapist That Will Oversee The Plan Of Care: Tima Bowden PT Start of Care Date: 08/31/21 Onset Date: 05/14/21 REHABILITATION AND SPORTS THERAPY PHYSICAL THERAPY TREATMENT NOTE ASSESSMENT: Dirk Myers demonstrated improvements in knee range of motion and squats form with promoting posterior weight shift, which took knee pain away. Patient also demonstrated good form with heel taps from low height, and was extensively educated on not performing if there is pain and focus on good form over # of reps (cued to perform in front of mirror). The patient will continue to benefit from ongoing skilled physical therapy for progressive exercises per surgical protocol to help return to prior level of function. PLAN FOR NEXT VISIT: assess additions to HEP, continue strengthening per tolerance. SUBJECTIVE: Patient Reason for Visit: Pt had some slight cramping in her thigh over the weekend at [place] with her family. Pain: Pain Pain Level: 2 Pain Location: Thigh - Left Description: Cramping Frequency: Intermittent OBJECTIVE MEASURES WITH LEVEL OF FUNCTION: LE AROM L Knee Extension: 1 Degrees L Knee Flexion: 140 Degrees TREATMENT: Therapeutic Exercise: 1: Upright bike seat #2 full revolutions from the start, resistance level 4 x6 minutes 2: Prone lying x3 min 3: Prone propped on elbows x3 min 4: Prone press ups x10 5: Quad sets x10 6: Heel slides x10 7: Wall slides x 10 (pt had anterios knee pain with this) 8: TRX squats 2x10 9: *Squats to tolerated depth at // bars x10 10: Step ups onto 9 step forward and sideways 2x10 each 11: *Heel taps from 3 step with mirror for visual feedback. Stressed good form over everything. x10 reps (pt instructed to cease if this causes pain or if she feels weak performing this) Skilled Intervention: Patient was educated in proper exercise technique and purpose for exercises. Skilled judgment was provided in selection of appropriate interventions. Provided written instruction for home exercise program to facilitate proper performance and compliance. Correct performance of therapeutic exercises was facilitated with verbal, visual and tactile cuing. Patient education as noted. Billing Therapeutic Exercise Treatment Minutes: 40 Total Treatment Time Minutes (timed and untimed codes) : 40 Danielito Acosta PT [facility] 10-12-2021 Note HNO ID: [id number] Author: Tima Bowden PT Service: ? Author Type: Physical Therapist Type: Progress Notes Filed: 10/12/2021 5:32 PM Note Text: Episode Visit Count: 12 Therapist That Will Oversee The Plan Of Care: Tima Bowden PT Start of Care Date: 08/31/21 Onset Date: 05/14/21 Patient Identified by Name and Date of : Yes REHABILITATION AND SPORTS THERAPY PHYSICAL THERAPY TREATMENT NOTE ASSESSMENT: Dirk Jimi Myers demonstrated improvements in ROM, pain, strength and exercise tolerance. The patient will continue to benefit from ongoing skilled physical therapy for supervised progression through post-op rehab protocol. Classification ACL-RSI: 66 IKDC #10: 7 PLAN FOR NEXT VISIT: [place] with progression per SCHWARZ protocol and ACL carepath. SUBJECTIVE: Patient Reason for Visit: Pt reports that overall she is doing well and not significantly different from last session. She reports compliance wtih HEP and that new exercises are helping with lateral L knee pain with TKE. Pain: Pain Pain Level: 0 Pain Location: Knee - Left Description: (no pain to start today) Frequency: Intermittent Post Treatment Pain Post Treatment Pain Level: No Change Post Treatment Pain Location: Knee - Left Post Treatment Pain Description: (fatigue only) Post Treatment Symptoms: During and after session pt reported fatigue but denied any increase in pain. OBJECTIVE MEASURES WITH LEVEL OF FUNCTION: LE AROM L LE AROM: supine L Knee Extension: 0 Degrees L Knee Flexion: 138 Degrees TREATMENT: Therapeutic Exercise: 1: Upright bike seat #2 full revolutions from the start, resistance level 4 x6 minutes 2: prone on elbows reviewed for HEP 3: prone press ups reviewed for HEP 4: the option of seated L piriformis stretch instructed. Anatomy atlas used to educate pt on role of piriformis muscle in lateral L knee symptoms with TKE 5: heel slides 2x10 with green strap for over-pressure 6: supine L piriformis stretch 3x30 seconds (pt gained 7 degrees of L knee extension immediately after completing this stretch without doing anything else) 8: wall slides in small range 2x10 9: 4 way L SLR with emphasis on quad activation to prevent lag 2x10 with 2# ankle weight 10: L forward and lateral step ups on 6 inch step in // bars 2x10 each 11: green t-band TKE for L 3x12 12: L HS curl machine 20# 3x10 Skilled Intervention: Patient was educated in proper exercise technique and purpose for exercises. Skilled judgment was provided in selection of appropriate interventions. Correct performance of therapeutic exercises was facilitated with verbal, visual and tactile cuing. Patient education as noted. Billing Therapeutic Exercise Treatment Minutes: 45 Total Treatment Time Minutes (timed and untimed codes) : 45 Tima Bowden PT [facility] 10-10-2021 Note HNO ID: [id number] Author: Tima Bowden PT Service: ? Author Type: Physical Therapist Type: Progress Notes Filed: 10/10/2021 7:25 PM Note Text: Episode Visit Count: 11 Therapist That Will Oversee The Plan Of Care: Tima Bowden PT Start of Care Date: 08/31/21 Onset Date: 05/14/21 Patient Identified by Name and Date of : Yes REHABILITATION AND SPORTS THERAPY PHYSICAL THERAPY TREATMENT NOTE ASSESSMENT: Dirk Jimi Myers demonstrated improvements in ROM, pain, strength and exercise tolerance. The patient will continue to benefit from ongoing skilled physical therapy for supervised progression through post-op rehab protocol. PLAN FOR NEXT VISIT: [place] with progression per SCHWARZ protocol and ACL carepath. SUBJECTIVE: Patient Reason for Visit: Pt reports that her overall condition has not changed significantly since last session. She reports dramatic improvement in lateral L knee symptoms following prone lumbar extension exercises. She reports that any difficulty with L TKE fully resolve after prone lumbar extension. She reports compliance with HEP. Despite the postive response to prone lumbar extension, the benefits are short term and symptoms return. She denies any pain to start today. Pain: Pain Pain Level: 0 Pain Location: Knee - Left Description: (no pain to start today) Frequency: Intermittent Post Treatment Pain Post Treatment Pain Level: Better Post Treatment Pain Location: Knee - Left Post Treatment Pain Description: (less pain) Post Treatment Symptoms: After session, pt reported that lateral L knee pain was significantly less with TKE OBJECTIVE MEASURES WITH LEVEL OF FUNCTION: Hip Observations R Hip Palpation Tenderness: No tenderness noted L Hip Palpation Tenderness: Piriformis (muscular tension is palpable as well as pain) LE AROM L LE AROM: supine L Knee Extension: 1 Degrees L Knee Flexion: 136 Degrees LE Flexibility Flexibility: Piriformis Flexibility R Piriformis Flexibility: 56 L Piriformis Flexibility: 40 Gait Gait Observation: Gait is normal TREATMENT: Therapeutic Exercise: 1: Upright bike seat #2 full revolutions from the start, resistance level 4 x6 minutes 2: prone on elbows x2 minutes 3: prone press ups 2x10 4: quad sets x10 5: heel slides 2x10 6: *supine L piriformis stretch 3x30 seconds 7: All of pt's questions were answered and re-assurance provided on her stage of recovery and the fact that she is doing very well and ahead of schedule. 8: wall slides in small range 2x10 9: 4 way L SLR with emphasis on quad activation to prevent lag 2x10 with 1# ankle weight 10: L forward and lateral step ups on 4 inch step in // bars 3x10 each 11: green t-band TKE for L 3x10 Skilled Intervention: Patient was educated in proper exercise technique and purpose for exercises. Reviewed and educated patient on additions/changes for home exercise program as above (*). Skilled judgment was provided in selection of appropriate interventions. Provided written instruction for home exercise program to facilitate proper performance and compliance. Correct performance of therapeutic exercises was facilitated with verbal, visual and tactile cuing. Patient education as noted. Billing Therapeutic Exercise Treatment Minutes: 45 Total Treatment Time Minutes (timed and untimed codes) : 45 Tima Bowden PT [facility] 10-05-2021 Note HNO ID: [id number] Author: Danielito Acosta PT Service: ? Author Type: Physical Therapist Type: Progress Notes Filed: 10/05/2021 2:09 PM Note Text: Episode Visit Count: 10 Therapist That Will Oversee The Plan Of Care: Tima Bowden PT Start of Care Date: 08/31/21 Onset Date: 05/14/21 REHABILITATION AND SPORTS THERAPY PHYSICAL THERAPY TREATMENT NOTE ASSESSMENT: Dirk Myers demonstrated improvements in knee range of motion and decreased lateral knee pain with prone lumbar progression. The patient will continue to benefit from ongoing skilled physical therapy for progressive exercises per surgical protocol to return to prior level of function. PLAN FOR NEXT VISIT: Assess carry over of lumbar exercises, progress strengthening for knee and hip per tolerance SUBJECTIVE: Patient Reason for Visit: Pt has been trying more of the back stuff that she was givne last session. Notes no real change in symptoms so far. She feels the thing that holds her back the most is the pulling and pain down the outside of the leg, especially to get the knee straight Pain: OBJECTIVE MEASURES WITH LEVEL OF FUNCTION: LE AROM L Knee Extension: -2 Degrees (3 degrees post LLLD) L Knee Flexion: 140 Degrees (125 AROM, 140 with strap) TREATMENT: Therapeutic Exercise: 1: Upright bike seat #3 full revolutions forward x3 minutes then seat #2 full revolutions forward x3 minutes 2: *Prone lying x3 min 3: *Prone propped on elbows x3 min 4: *Prone press ups 3x10 5: Quad sets 2x10 each supine and prone 6: Heel slides 2x10 each AROM and with strap assist 7: SLR x20 8: Spent time discussing rationale for prone exercises and likely source of lateral knee pain as being lumbar in nature Skilled Intervention: Patient was educated in proper exercise technique and purpose for exercises. Skilled judgment was provided in selection of appropriate interventions. Provided written instruction for home exercise program to facilitate proper performance and compliance. Correct performance of therapeutic exercises was facilitated with verbal, visual and tactile cuing. Patient education as noted. Billing Therapeutic Exercise Treatment Minutes: 40 Total Treatment Time Minutes (timed and untimed codes) : 40 Danielito Acosta PT [facility] 10-01-2021 Note HNO ID: [id number] Author: Tima Bowden PT Service: ? Author Type: Physical Therapist Type: Progress Notes Filed: 10/01/2021 9:04 PM Note Text: Episode Visit Count: 9 Therapist That Will Oversee The Plan Of Care: Tima Bowden PT Start of Care Date: 08/31/21 Onset Date: 05/14/21 Patient Identified by Name and Date of : Yes REHABILITATION AND SPORTS THERAPY PHYSICAL THERAPY PROGRESS REPORT PLAN OF CARE UPDATE: Assessment: Dirk yMers exhibits difficulty with radicular L LE symptoms, gait and stairs and improvements in ROM, strength, gait and pain. She continues to be limited with walking, stair negotiation and squatting. She is progressing as expected towards her therapy goals as demonstrated by: home exercise program compliance, pain levels, documented subjective information on progress, documented objective information regarding gait, independence in exercise, overall function, range of motion and strength and appointment compliance. She will benefit from continued skilled therapy requiring supervised progression of therex, gait training and neuromuscular re-ed in order to further improve ROM, strength, gait, stairs, balance and proprioception. Pt has radicular L LE symptoms with TKE. This eases with slight knee flexion, ankle PF and increases with SLR. After repetitive lumbar ext exercises, TKE is less painful. Pt ability with quad set dramatically improves with very slight knee flexion and is pain-free. Functional gains: Improved gait quality Improved ability to perform transfers Improved ability to climb steps Increased independence with HEP Increased ROM Increased strength Decreased intensity of pain Decreased frequency of pain Updated: 10/01/21 Goals for Episode of Care: created on 08/31/21 through 11/23/21 Phase 1 to Phase 2 Criteria: Criterion for Progression: Complete 20 straight leg raises with no quadriceps lag. - met Range of motion Full active knee extension (within 3 degrees) and Active Flexion to 110 degrees., - met Full quadriceps activation: full, without visual inhibition. - met Normalized Gait. - partially met Discontinuation of Crutch/Immobilizer devices. - met Phase 2 to Phase 3 Criteria: Criterion for Progression: Range of motion: full, equal to contralateral. - partially met Stairs: 10-12 steps, ascent/descent in a reciprocal pattern with (6-8 height). - partially met Double leg squat: 60-90 degree bend, equal weight bearing, proper mechanics. - partially met Demonstrates functional strength and control with performing daily activities. - partially met Phase 3 to Phase 4 Criteria: Criterion for Progression: Range of Motion: maintained full and equal to contralateral limb. Strength symmetry testin% symmetry using any of the following methods: Dynamometer testing. Motor control: 6 inch eccentric step-downs with heel tap, 20 reps, proper mechanics. Hopping in place: double leg and single leg, no pain, proper mechanics. Outcomes: IKDC greater than or equal to 7, ADL-RSI greater than or equal to 50-60 score. Phase 4 to Phase 5 Criteria: Criterion for Progression: Maximum vertical jump without pain or instability. 80% of contralateral on single hop tests. Normalized running. Y-balance - anterior reach: less than 4 cm asymmetry. Strength: 85% symmetry. IKDC Question (Global Rating of Knee Function) score of 8 or greater. Phase 5 to Return to Sport Criteria: Criterion for Progression: Strength: Greater than or equal to 90% symmetry. Hop testin% symmetry with proper mechanics. Pain free transition to activities and no functional complaints. Confidence when running, cutting, jumping at full speed. IKDC Question (Global Rating of Knee Function) of > 9. Patient Goals: regain prior functional status Planned Interventions, Frequency, and Duration: 2x/week, 8 weeks Total Number of Visits Planned: 16 Patient to be seen for Therapeutic exercise (92703);Neuromuscular re-education (18671);Manual therapy (75108);Therapeutic activities (35753);Self-custodial management (08591);Gait Training (54018);Patient/Family/Caregiver Education PLAN FOR NEXT VISIT: [place] with progression per SCHWARZ protocol and ACL carepath. Prognosis: Excellent Excellent due to: current objective clinical presentation;good overall health status;acuteness of condition;good support system/ coping skills SUBJECTIVE: Patient Reason for Visit: Pt reports that her follow up with referring provider went very well on 09/25/21. She denies any pain to start today. She reports compliance with HEP 2x day. She reports that attempting to go shopping on Friday was too much physical activity for her L knee. Pain: Pain Pain Level: 0 Pain Location: Knee - Left Description: (no pain to start today) Frequency: Intermittent Post Treatment Pain Post Treatment Pain Level: No Change Post Treatment Pain Location: Knee (more content not included)... [facility] 09-25-2021 Note HNO ID: [id number] Author: Danielito Acosta PT Service: ? Author Type: Physical Therapist Type: Progress Notes Filed: 09/25/2021 11:27 AM Note Text: Episode Visit Count: 8 Therapist That Will Oversee The Plan Of Care: Tima Bowden PT Start of Care Date: 08/31/21 Onset Date: 05/14/21 REHABILITATION AND SPORTS THERAPY PHYSICAL THERAPY TREATMENT NOTE ASSESSMENT: Dirk Myers demonstrated improvements in knee range of motion and decreased pain post session. Patient appeared to have increased mm soreness following black [employer] shopping, but no signs or any joint damage. The patient will continue to benefit from ongoing skilled physical therapy for progressive exercises to help return to prior level of function. PLAN FOR NEXT VISIT: continued progression per SCHWARZ protocol SUBJECTIVE: Patient Reason for Visit: Pt doing better today, but she did go black [employer] shopping and feels like she flared things up. sore and swollen, but no realy sharp or intense pain Pain: Pain Pain Level: 1 Pain Location: Knee - Left Description: Sore Frequency: Intermittent OBJECTIVE MEASURES WITH LEVEL OF FUNCTION: LE AROM L Knee Extension: 2 Degrees TREATMENT: Therapeutic Exercise: 1: Upright bike seat #3 partial revolutions x6 minutes total. Full revolutions backward for last several minutes with increased ease. 2: supine extension bridge with foam roll behind ankle and 4# weight on anterior knee x3 minutes 3: supine L quad sets with 5 second holds, 2x10 4: supine L heel slides to facilitate flexion ROM 3x10 with green strap over foot 5: 4 way L SLR with emphasis on quad activation to prevent lag 2x12 6: Prone L knee flexion stretch with green strap 3x30 seconds 7: Supine L patellar mobilizations inferior and superior x10 Skilled Intervention: Patient was educated in proper exercise technique and purpose for exercises. Skilled judgment was provided in selection of appropriate interventions. Correct performance of therapeutic exercises was facilitated with verbal, visual and tactile cuing. Manual Therapy: 1: IASTM to lateral HS and gastroc with push to tolerance x 12 min Skilled Intervention: Manual skills to improve joint mobility, ROM, and decrease pain. Utilized anatomy knowledge of the therapist, and assessment of patient's response to intervention. Billing Therapeutic Exercise Treatment Minutes: 30 Manual TherapyTreatment Minutes: 10 Total Treatment Time Minutes (timed and untimed codes) : 40 Danielito Acosta PT [facility] 09-25-2021 Note HNO ID: [id number] Author: Nina Babin MD Service: ? Author Type: Physician Type: Progress Notes Filed: 09/25/2021 11:18 AM Note Text: DATE OF PROCEDURE:?August 27, 2021 OPERATION: 1.?Left?knee arthroscopically-assisted anterior cruciate ligament reconstruction with quintuple?stranded hamstring autograft 2. Diagnostic arthroscopy. 3. Examination under anesthesia. 4.??Left knee?partial lateral meniscectomy Interval history: Dirk Myers returns today status post left knee surgery. Chief complaint is 4 weeks post op. Doing well. States pain is minimal. Has been working with PT with significant improvement in ROM. No feelings of instability. Review of Systems: CV: No chest pain Pulm: No short of breath HEENT: No head ache General: no fevers, chills, nausea/vomiting, malaise Physical Examination: This is a well appearing, well nourished patient in no acute distress. Head is normocephalic and atraumatic. White sclera and pink conjunctiva. Mucous membranes are moist. Breathes easily and has normal chest wall excursion. Affect is normal. Left knee: Range of motion: Flexion is 110, extension is 0 . Effusion: mild +. Incisions: healed . No infection. Imaging: none Impression: Dirk Myers is a 25 year old female, who is 4 weeks status post left knee ACL reconstruction with hamstring autograft and lateral meniscectomy Plan: 1. Continue with PT 2. Return to clinic in 1 month Sundeep Puente MD (Resident) Attending Attestation: I have seen and evaluated this patient. I agree with the impression and plan of care as outlined in the Resident's note. Nina Babin MD [facility] Orthopaedic Surgery and Sports Medicine [facility] Sports Medicine manager of development [facility] of Medicine Food Analyst, Orthopaedic Sports Medicine Fellowship [facility] Orthopaedic and Rheumatologic [facility] 09-19-2021 Note HNO ID: [id number] Author: Tima Bowden PT Service: ? Author Type: Physical Therapist Type: Progress Notes Filed: 09/19/2021 10:15 AM Note Text: Episode Visit Count: 7 Therapist That Will Oversee The Plan Of Care: Tima Bowden PT Start of Care Date: 08/31/21 Onset Date: 05/14/21 Patient Identified by Name and Date of : Yes REHABILITATION AND SPORTS THERAPY PHYSICAL THERAPY TREATMENT NOTE ASSESSMENT: Dirk Myers demonstrated improvements in ROM, pain, gait and strength. The patient will continue to benefit from ongoing skilled physical therapy for supervised progression through SCHWARZ protocol and [facility] ACL carepath. PLAN FOR NEXT VISIT: [place] with progression per SCHWARZ protocol SUBJECTIVE: Patient Reason for Visit: Pt reports that overall she is doing well with no new issues or problems. She reports compliance with HEP 2x day. She reports feeling good about the way she walks in PT but she does not feel that she is able to continue this on her own outside of PT. Pain: Pain Pain Level: 0 (3/10 at worst intermittently but rare, with walking) Pain Location: Knee - Left Description: (no pain to start) Frequency: Intermittent Post Treatment Pain Post Treatment Pain Level: 0 Post Treatment Pain Location: Knee - Left Post Treatment Pain Description: (fatigue) Post Treatment Symptoms: After session pt denied any increase in pain, just fatigue from a good workout. OBJECTIVE MEASURES WITH LEVEL OF FUNCTION: Knee Observations L Ecchymosis : bruising is visible in various stages of healing throughout L LE. L Incision: clean and dry with no signs of infection R Circumference 6 inches above mid-patella (inches): 20.5 inches (measured 08/31/21) R Circumference mid patella (inches): 15 inches (measured 08/31/21) R Circumference 6 inches below mid-patella (inches): 15 inches (measured 08/31/21) L Circumference 6 inches above mid-patella (inches): 21.25 inches L Circumference mid patella (inches): 16 inches L Circumference 6 inches below mid-patella (inches): 14.5 inches LE AROM L LE AROM: supine L Knee Extension: 4 Degrees L Knee Flexion: 122 Degrees LE Strength L LE Strength: supine L SLR 2x20 without quad lag DVT Screening/Testing Screening/Testing: Homastefan Jevon's Sign: Right Negative;Left Negative TREATMENT: Carepath: ACL ACL Phase: Phase 2: Early Rehabilitation Phase Phase 1: Initial Post-Op: quad sets, ankle pumps and heel slides are current focus. Phase 2: Early Rehabilitation Phase: emphasis on ext ROM, stationary bike, 4 way SLR, squats, leg press, SLS Therapeutic Exercise: 1: Upright bike seat #3 partial revolutions x6 minutes total. Full revolutions backward for last several minutes with increased ease. 2: supine extension bridge with foam roll behind ankle and 4# weight on anterior knee x3 minutes 3: supine L quad sets with 5 second holds, 2x10 4: supine L heel slides to facilitate flexion ROM 3x10 with green strap over foot 5: 4 way L SLR with emphasis on quad activation to prevent lag 2x12 (supine hip flexion 2x20 without quad lag) 6: seated LAQ L without weight 3x15 7: *prone L knee flexion stretch with green strap 3x30 seconds (pt will use dog leash at home.) 8: *supine L patellar mobilizations inferior and superior x10 9: supine gravity stretch for L knee flexion x3 minutes with therapist arm behind distal L thigh and in front of distal R thigh. 10: Pt was reminded to use pain as her guide for all activities and exercise. She was encouraged to be cautious but not scared. 12: *L gastroc and soleus stretches 3x30 seconds 13: L knee flexion stretch with left foot on 2nd or 3rd step 3x30 seconds Skilled Intervention: Patient was educated in proper exercise technique and purpose for exercises. Reviewed and educated patient on additions/changes for home exercise program as above (*). Skilled judgment was provided in selection of appropriate interventions. Provided written instruction for home exercise program to facilitate proper performance and compliance. Correct performance of therapeutic exercises was facilitated with verbal, visual and tactile cuing. Patient education as noted. Gait Trainin: Gait training done with and without feedback from mirror. Pt was encouraged to continue with heel to toe pattern, symmetrical step lengths and not to favor L knee. Pt was educated on lack of full heel strike observed on L at times and intermittent asymmetry of step lengths. She practiced as therapist provided verbal cues. Skilled Intervention: Facilitated proper gait cycle with the use of verbal and visual cues for correction of gait deviations identified in the objective section above. Billing Therapeutic Exercise Treatment Minutes: 50 Gait Training Treatment Minutes: 10 Total Treatment Time Minutes (timed and untimed codes) : 60 Tima Bowden PT [facility] 09-17-2021 Note HNO ID: [id number] Author: Tima Bowden PT Service: ? Author Type: Physical Therapist Type: Progress Notes Filed: 09/17/2021 4:37 PM Note Text: Episode Visit Count: 6 Therapist That Will Oversee The Plan Of Care: Tima Bowden PT Start of Care Date: 08/31/21 Onset Date: 05/14/21 Patient Identified by Name and Date of : Yes REHABILITATION AND SPORTS THERAPY PHYSICAL THERAPY TREATMENT NOTE ASSESSMENT: Dirk Myers demonstrated difficulty with strength of L knee and lack of confidence in general and improvements in ROM, pain and gait. Pt completed all exercise progressions without increased pain. The patient will continue to benefit from ongoing skilled physical therapy for supervised progression of therex following SCHWARZ protocol. Classification ACL-RSI: 48 IKDC #10: 6 PLAN FOR NEXT VISIT: [place] with progression per SCHWARZ protocol SUBJECTIVE: Patient Reason for Visit: Pt feels that overall she is getting better and making progress. She feels that her gait is nearly normal and she no longer has pain with getting out of the bed in the morning. She reports that overall pain is minimal but not abolished. She reports that attempts to walk faster or to force a normal gait are pain at times. Pain: Pain Pain Level: 0 Pain Location: Knee - Left Description: (no pain to start today) Frequency: Intermittent Post Treatment Pain Post Treatment Pain Level: 0 Post Treatment Pain Location: Knee - Left Post Treatment Pain Description: (fatigue) Post Treatment Symptoms: During and after session today, pt reported and demonstrated fatigue but denied any increase in pain. OBJECTIVE MEASURES WITH LEVEL OF FUNCTION: Knee Observations L Ecchymosis : bruising is still significant and present but improving. L Incision: clean and dry LE AROM L LE AROM: supine L Knee Extension: 2 Degrees L Knee Flexion: 121 Degrees LE Strength L LE Strength: supine SLR 2x20 without quad lag Gait Gait Observation: with cueing and practice, gait normalizes TREATMENT: Carepath: ACL ACL Phase: Phase 2: Early Rehabilitation Phase Phase 1: Initial Post-Op: quad sets, ankle pumps and heel slides are current focus. Phase 2: Early Rehabilitation Phase: emphasis on ext ROM, stationary bike, 4 way SLR, squats, leg press, SLS Therapeutic Exercise: 1: Upright bike seat #3 partial revolutions x6 minutes total. 6 full revolutions backward 2: supine extension bridge with foam roll behind ankle and 4# weight on anterior knee x3 minutes 3: supine L quad sets with 5 second holds, 2x10 4: supine L heel slides to facilitate flexion ROM 3x10 with green strap over foot 5: 4 way L SLR with emphasis on quad activation to prevent lag 2x10 (supine hip flexion 2x20 without quad lag) 6: seated LAQ L without weight 3x15 7: Wall squats in painfree range 2x15 emphasis on form 8: yellow t-band L TKE 3x15 9: supine gravity stretch for L knee flexion x2 minutes with therapist arm behind distal L thigh and in front of distal R thigh. 10: Pt was reminded to use pain as her guide for all activities and exercise. She was encouraged to be cautious but not scared. 11: seated yellow t-band L knee flexion 3x10 Skilled Intervention: Patient was educated in proper exercise technique and purpose for exercises. Reviewed and educated patient on additions/changes for home exercise program as above (*). Skilled judgment was provided in selection of appropriate interventions. Correct performance of therapeutic exercises was facilitated with verbal, visual and tactile cuing. Gait Trainin: Gait training done with and without feedback from mirror. Pt was encouraged to continue with heel to toe pattern, symmetrical step lengths and not to favor L knee. Pt was educated on early heel off observed on L. Increased speed of ambulation decreases deviations. Skilled Intervention: Facilitated proper gait cycle with the use of verbal and visual cues for correction of gait deviations identified in the objective section above. Billing Therapeutic Exercise Treatment Minutes: 50 Gait Training Treatment Minutes: 10 Total Treatment Time Minutes (timed and untimed codes) : 60 Tima Bowden PT [facility] 09-14-2021 Note HNO ID: [id number] Author: Tima Bowden PT Service: ? Author Type: Physical Therapist Type: Progress Notes Filed: 09/14/2021 11:15 AM Note Text: Episode Visit Count: 5 Therapist That Will Oversee The Plan Of Care: Tima Bowden PT Start of Care Date: 08/31/21 Onset Date: 05/14/21 Patient Identified by Name and Date of : Yes REHABILITATION AND SPORTS THERAPY PHYSICAL THERAPY TREATMENT NOTE ASSESSMENT: Dirk Myers demonstrated improvements in ROM, gait, strength and exercise tolerance without increased pain. The patient will continue to benefit from ongoing skilled physical therapy for supervised progression of therex and gait training following SCHWARZ protocol. PLAN FOR NEXT VISIT: [place] with progression per SCHWARZ protocol SUBJECTIVE: Patient Reason for Visit: Pt feels that she was doing well and making progress. Since her last appointment though she has been a little discouraged because progress has been minimal. She reports compliance with HEP 2x day for all exercises and some exercises more often than that. She is ambulating without crutch. She denies any pain to start today but that she does have pain intermittently with movement to end range flexion. Pain: Pain Pain Level: 0 (3-4/10 at worst with very short duration) Pain Location: Knee - Left Description: (no pain to start today) Frequency: Intermittent Post Treatment Pain Post Treatment Pain Level: Better Post Treatment Pain Location: Knee - Left Post Treatment Pain Description: (looser) Post Treatment Symptoms: After today's session pt reported feeling better with L knee looser and increased confidence in general. OBJECTIVE MEASURES WITH LEVEL OF FUNCTION: Knee Observations L Knee Presents with: Ecchymosis;Incision L Ecchymosis : bruising visible in various stages throughout L lower leg L Incision: clean, dry incisions with no signs of infection or issues LE AROM L LE AROM: supine L Knee Extension: 2 Degrees L Knee Flexion: 116 Degrees LE Strength L LE Strength: supine SLR 2x20 without quad lag Gait Gait Observation: Pt arrived without crutches or brace but is keeping L knee in full extension throughout gait cycle. After gait training, quality of gait improved dramatically. TREATMENT: Carepath: ACL ACL Phase: Phase 2: Early Rehabilitation Phase Phase 1: Initial Post-Op: quad sets, ankle pumps and heel slides are current focus. Phase 2: Early Rehabilitation Phase: emphasis on ext ROM, stationary bike, 4 way SLR, squats, leg press, SLS Therapeutic Exercise: 1: Upright bike seat #3 partial revolutions x6 minutes total (subjective collected) 2: supine extension bridge with foam roll behind ankle and 3# weight on anterior knee x3 minutes 3: supine L quad sets with 5 second holds, 2x10 4: supine L heel slides to facilitate flexion ROM 3x10 with green strap over foot 5: 4 way L SLR with emphasis on quad activation to prevent lag 2x10 (supine 2x20 and other 3 2x10(R sidelying, L sidelying and prone)) 6: seated LAQ L without weight 3x10 7: Wall squats in painfree range 2x10 emphasis on form 8: yellow t-band L TKE 3x10 9: Proper expectations reviewed as well as her progress with protocol and re-assurance given. 10: Pt was reminded to use pain as her guide for all activities and exercise. She was encouraged to be cautious but not scared. Skilled Intervention: Patient was educated in proper exercise technique and purpose for exercises. Skilled judgment was provided in selection of appropriate interventions. Correct performance of therapeutic exercises was facilitated with verbal, visual and tactile cuing. Patient education as noted. Gait Trainin: Gait training in front of mirrors with demonstration on normal gait pattern and many verbal cues throughout to correct deviations. Specifically, she was encouraged to allow free movement of L knee during swing versus keeping L knee extended throughout swing, heel to toe pattern, symmetrical step lengths and slow pattern if necessary. Stair training completed on 4 steps with rail. Reciprocal and step-to patterns used. Skilled Intervention: Facilitated proper gait cycle with the use of verbal and visual cues for correction of gait deviations identified in the objective section above. Education provided to patient regarding the proper sequence for stair negotiation. Billing Therapeutic Exercise Treatment Minutes: 35 Gait Training Treatment Minutes: 25 Total Treatment Time Minutes (timed and untimed codes) : 60 Tima Bowden PT [facility] 09-10-2021 Note HNO ID: [id number] Author: Carly Snow PT Service: ? Author Type: Physical Therapist Type: Progress Notes Filed: 09/10/2021 9:48 AM Note Text: Episode Visit Count: 4 Therapist That Will Oversee The Plan Of Care: Tima Bwoden PT Start of Care Date: 08/31/21 Onset Date: 05/14/21 Patient Identified by Name and Date of : Yes REHABILITATION AND SPORTS THERAPY PHYSICAL THERAPY TREATMENT NOTE ASSESSMENT: Dirk Myers demonstrated difficulty with normal gait which improved with verbal and visual cueing. She had improved tolerance for strengthening with no quad lag with straight leg raises and was able to progress exercise with no increase in pain. The patient will continue to benefit from ongoing skilled physical therapy for progression of exercises per protocol. PLAN FOR NEXT VISIT: [place] with progression per protocol SUBJECTIVE: Patient Reason for Visit: Patient reports the left knee feels okay. She reports walking most of the time she went without crutches and had some medial knee pain. Pain: Pain Pain Level: 0 Pain Location: Knee - Left Frequency: Intermittent Post Treatment Pain Post Treatment Pain Level: No Change Post Treatment Symptoms: Feel good OBJECTIVE MEASURES WITH LEVEL OF FUNCTION: LE AROM L Knee Extension: 2 Degrees L Knee Flexion: 107 Degrees TREATMENT: Carepath: ACL ACL Phase: Phase 1: Initial post op Phase 1: Initial Post-Op: quad sets, ankle pumps and heel slides are current focus. Therapeutic Exercise: 1: [employer] StepOne seat #9 [id number] without resistance in pain-free range at start of session 3: supine L quad sets with 5 second holds, 2x10 4: supine L heel slides to facilitate flexion ROM 3x12 5: supine L SLR with emphasis on quad activation to prevent lag 2x10 7: *Supine with left hip abduction 2x10 8: *Supine with left hip extension 2x10 9: *Supine with left hip adduction 2x10 10: Supine left knee propping for extension stretch 1# weight x 3 minutes 11: Wall squats in painfree range 1x10 Skilled Intervention: Patient was educated in proper exercise technique and purpose for exercises. Reviewed and educated patient on additions/changes for home exercise program as above (*). Skilled judgment was provided in selection of appropriate interventions. Provided written instruction for home exercise program to facilitate proper performance and compliance. Billing Therapeutic Exercise Treatment Minutes: 38 Gait Training Treatment Minutes: 5 Total Treatment Time Minutes (timed and untimed codes) : 43 ADAM Oakley, PT [facility] 09-07-2021 Note HNO ID: [id number] Author: Tima Bowden PT Service: ? Author Type: Physical Therapist Type: Progress Notes Filed: 09/07/2021 3:01 PM Note Text: Episode Visit Count: 3 Therapist That Will Oversee The Plan Of Care: Tima Bowden PT Start of Care Date: 08/31/21 Onset Date: 05/14/21 Patient Identified by Name and Date of : Yes REHABILITATION AND SPORTS THERAPY PHYSICAL THERAPY TREATMENT NOTE ASSESSMENT: Dirk Myers demonstrated difficulty with weight shifts initially and improvements in gait, ROM, exercise tolerance, strength and pain. The patient will continue to benefit from ongoing skilled physical therapy for supervised progression through SCHWARZ protocol and CCRST ACL carepath. PLAN FOR NEXT VISIT: Review correct and progress HEP to tolerance. Continue and progress therex for pain, ROM, strength and swelling following the SCHWARZ protocol and CCRST ACL CarePath. Gait training prn per physician guidance. Have patient complete ACL-RSI and IKDC questions. SUBJECTIVE: Patient Reason for Visit: Pt reports that her follow up with referring provider's office went very well. She reports that she is on schedule with no concerns currently. She reports being advised to continue PT per original instructions. Pt reports being advised that she should be able to discontinue crutches by 2 weeks post-op(09/10/21). 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 She denies any pain to start today. Pain: Pain Pain Level: 0 Pain Location: Knee - Left Description: ( pinching with end range flexion) Frequency: Intermittent Post Treatment Pain Post Treatment Pain Level: No Change Post Treatment Symptoms: Pt reported some fatigue after session but denied any pain after session. She reported trying to push herself on seated stepper for L knee flexion and that this caused mild pain. After a short rest, this pain eased. She reported 0/10 pain as she was leaving. OBJECTIVE MEASURES WITH LEVEL OF FUNCTION: LE AROM L LE AROM: supine L Knee Extension: 3 Degrees L Knee Flexion: 101 Degrees LE Strength L LE Strength: 2x10 SLR without quad lag Gait Gait Observation: Pt arrived with B crutches but was able ot transition to one crutch and eventually no crutch WBAT with near normal pattern. Initially pt was very fearful and needed a lot of encouragement. Weight shifts needed practiced before she was willing to WB fully on L LE. Stairs: Pt is able to ascend and descend 4 steps reciprocally with B rail but not normal. Step to pattern was normal and safe. TREATMENT: Carepath: ACL ACL Phase: Phase 1: Initial post op Phase 1: Initial Post-Op: quad sets, ankle pumps and heel slides are current focus. Therapeutic Exercise: 1: SciFit StepOne seat #10 x6 minutes without resistance in pain-free range at end of session. 2: ankle pumps reviewed for circulation 3: supine L quad sets with 5 second holds, 2x10 4: supine L heel slides to facilitate flexion ROM 2x10 5: supine L SLR with emphasis on quad activation to prevent lag 2x10 6: supine propping for L knee extension, heel on foam roll x3 minutes without weight 8: Rehab plan reviewed and discussed with patient and all of her questions answered. Skilled Intervention: Patient was educated in proper exercise technique and purpose for exercises. Skilled judgment was provided in selection of appropriate interventions. Correct performance of therapeutic exercises was facilitated with verbal, visual and tactile cuing. Patient education as noted. Gait Trainin: Gait training done WBAT with one crutch(R UE) and eventually progressed to no crutch. Lots of encouragement necessary. Mirror was used for feedback and verbal cues with demonstration also used. Pt was encouraged to use a heel to toe pattern with equal weight shifts. Foot clearance also emphasized on R. After extensive practice, pt was able to normalize gait without device and therefore she was encouraged to continue weaning off of crutches. She was advised to stop using 2 crutches and to work toward no crutch by the end of the weekend when it is safe. She was urged to use pain as her guide at all times. Stair training done with B rail with step-to and reciprocal pattern without crutches. Skilled Intervention: Facilitated proper gait cycle with the use of verbal, visual and tactile cues for correction of gait deviations identified in the objective section above. Gait belt utilized during session for safety. Skilled judgment used to assess proper use of assistive device. Billing Therapeutic Exercise Treatment Minutes: 25 Gait Training Treatment Minutes: 20 Total Treatment Time Minutes (timed and untimed codes) : 45 Tima Bowden PT [facility] 09-04-2021 Note HNO ID: [id number] Author: Nathan Henriquez PA-C Service: ? Author Type: Physician Leak Detection Engineer Type: Progress Notes Filed: 09/04/2021 9:21 AM Note Text: DATE OF PROCEDURE: August 27, 2021 OPERATION: 1. Left knee arthroscopically-assisted anterior cruciate ligament reconstruction with quintuple stranded hamstring autograft 2. Diagnostic arthroscopy. 3. Examination under anesthesia. 4. Left knee partial lateral meniscectomy Interval history: Dirk Myers returns today status post left knee surgery. Doing well . Patient conveys that her recovery has been without complications. Patient pleased with the outcome of surgery. Medication used during recovery: Percocet and Aleve Pain Scale: Pt. states pain is a 2 on a scale of 0-10. Ambulating with assistance. Using crutches. Patient involved with physical therapy Review of Systems: CV: No chest pain Pulm: No shortness of breath HEENT: No head ache General: no fevers, chills, nausea/vomiting, malaise Physical Examination: This is a well appearing, well nourished patient in no acute distress. Head is normocephalic and atraumatic. White sclera and pink conjunctiva. Mucous membranes are moist. Breathes easily and has normal chest wall excursion. Affect is normal. Left knee exam Cleaned wound with alcohol before and after removing steri-strips. Incisions well-healed, and without drainage, unusual inflammation or edema. Flexion to 90, extension is lacking a few degrees No erythema, yes effusion, no warmth. Imaging: Plain films from [facility] are personally reviewed by me and demonstrate stable post surgical changes related to ACL reconstruction Impression/Plan: Dirk Myers is a 25 year old female, who is 8 days status post left knee ACLR . Doing well. 1. Reviewed operative note and findings. 2. Compliant with PT. 3. Continue on with PT. 4. Postop pain medication refill not needed 5. Provided wound and skin care education and medication management instructions. 6. RTC on 09/25 for a follow up visit with Dr. Babin, no x-rays needed. Nathan Henriquez PA-C [facility] 09-04-2021 Note HNO ID: [id number] Author: RT Erik(R) Service: ? Author Type: Technologist Type: Progress Notes Filed: 09/04/2021 8:14 AM Note Text: Radiology Service Progress Note PATIENT NAME: Dirk Myers DATE OF SERVICE: September 04, 2021 TIME: 8:13 AM PATIENT IDENTITY VERIFICATION COMPLETED USING TWO (2) IDENTIFIERS: Name and Date of confirmed by patient verbally. FALL SCREENING: Has the patient had 2 falls in the last year or 1 fall with injury or currently using an Ambulatory Assistive Device (Walker, Cane, Wheelchair, Crutches, etc.)? No PATIENT GENDER DATA: Female. status: : No status: NO. PATIENT RELEVANT IMPLANT DATA REVIEWED: Not Applicable RADIOLOGY DEPARTMENT: General X-ray: Exam(s) Completed: Lower Extremity X-Ray(s): Knee, AP / LAT Left PERIPHERAL IV DATA: Not applicable SIGNED BY: RT Erik(R) September 04, 2021 8:13 AM [facility] 09-03-2021 Note HNO ID: [id number] Author: Tima Bowden PT Service: ? Author Type: Physical Therapist Type: Progress Notes Filed: 09/03/2021 4:45 PM Note Text: Episode Visit Count: 2 Therapist That Will Oversee The Plan Of Care: Tima Bowden PT Start of Care Date: 08/31/21 Onset Date: 05/14/21 Patient Identified by Name and Date of : Yes REHABILITATION AND SPORTS THERAPY PHYSICAL THERAPY TREATMENT NOTE ASSESSMENT: Dirk Myers demonstrated improvements in ROM, pain, quad activation and understanding of plan of care. The patient will continue to benefit from ongoing skilled physical therapy for supervised progression of therex following SCHWARZ protocol, and gait training prn. PLAN FOR NEXT VISIT: Review correct and progress HEP to tolerance. Continue and progress therex for pain, ROM, strength and swelling following the SCHWARZ protocol and CCRST ACL CarePath. Gait training prn pending physician guidance. Have patient complete ACL-RSI and IKDC questions. SUBJECTIVE: Patient Reason for Visit: Pt denies any significant pain to start today. She reports that L knee feels like it is going to explode. She later reports that entire L LE feels swollen but she denies any specific pain. She reports compliance with HEP throughout the day without pain or problems. She reports use of crutches at all times and that she has been NWB. She continues to wear ARTURO hose but is looking forward to discontinuing these. Pain: Pain Pain Level: 0 Pain Location: Knee - Left Description: Stiffness;Tightness;Pressure Frequency: Intermittent Post Treatment Pain Post Treatment Pain Level: No Change Post Treatment Symptoms: During and after today's session she denied any increase in pain. OBJECTIVE MEASURES WITH LEVEL OF FUNCTION: LE AROM L LE AROM: supine L Knee Extension: -3 Degrees L Knee Flexion: 98 Degrees LE Strength L LE Strength: 2x10 SLR with minimal to no quad lag. TREATMENT: Carepath: ACL ACL Phase: Phase 1: Initial post op Phase 1: Initial Post-Op: quad sets, ankle pumps and heel slides are current focus. Therapeutic Exercise: 1: SciFit StepOne x6 minutes without resistance in pain-free range at end of session. 2: ankle pumps 2x10 for circulation 3: supine L quad sets with 5 second holds, 2x10 (an additional 2x10 with stabilizer pressure cuff for biofeedback) 4: supine L heel slides to facilitate flexion ROM 2x10 5: *supine L SLR with emphasis on quad activation to prevent lag 2x10 (initially AAROM but then AROM) 6: *supine L hip abduction 2x10 7: *supine SAQ without weight 2x10 8: Rehab plan reviewed and discussed with patient and all of her questions answered. Skilled Intervention: Patient was educated in proper exercise technique and purpose for exercises. Reviewed and educated patient on additions/changes for home exercise program as above (*). Skilled judgment was provided in selection of appropriate interventions. Provided written instruction for home exercise program to facilitate proper performance and compliance. Correct performance of therapeutic exercises was facilitated with verbal, visual and tactile cuing. Patient education as noted. Billing Therapeutic Exercise Treatment Minutes: 45 Total Treatment Time Minutes (timed and untimed codes) : 45 Tima Bowden PT [facility] 08-31-2021 Note HNO ID: [id number] Author: Tima Bowden PT Service: ? Author Type: Physical Therapist Type: Progress Notes Filed: 08/31/2021 2:03 PM Note Text: Episode Visit Count: 1 Therapist That Will Oversee The Plan Of Care: Tima Bowden PT Start of Care Date: 08/31/21 Onset Date: 05/14/21 Patient Identified by Name and Date of : Yes REHABILITATION AND SPORTS THERAPY PHYSICAL THERAPY EVALUATION PLAN OF CARE: Assessment: Dirk Myers presents with the diagnosis of 4 days s/p L ACL reconstruction using hamstring autograft with menisectomy. She presents with impairments of gait deficits, ROM limits, swelling, weakness, pain and resulting functional difficulties. She may benefit from skilled therapy services to improve gait, pain, ROM, strength and overall function following SCHWARZ protocol and [facility] ACL carepath. Prognosis: Excellent Excellent due to: current objective clinical presentation;good overall health status;acuteness of condition;good support system/ coping skills Goals for Episode of Care: created on 08/31/21 through 11/23/21 Phase 1 to Phase 2 Criteria: Criterion for Progression: Complete 20 straight leg raises with no quadriceps lag. , Range of motion Full active knee extension (within 3 degrees) and Active Flexion to 110 degrees., Full quadriceps activation: full, without visual inhibition. , Normalized Gait. and Discontinuation of Crutch/Immobilizer devices. , Phase 2 to Phase 3 Criteria: Criterion for Progression: Range of motion: full, equal to contralateral., Stairs: 10-12 steps, ascent/descent in a reciprocal pattern with (6-8 height). , Double leg squat: 60-90 degree bend, equal weight bearing, proper mechanics. and Demonstrates functional strength and control with performing daily activities., Phase 3 to Phase 4 Criteria: Criterion for Progression: Range of Motion: maintained full and equal to contralateral limb., Strength symmetry testin% symmetry using any of the following methods: Dynamometer testing., Motor control: 6 inch eccentric step-downs with heel tap, 20 reps, proper mechanics., Hopping in place: double leg and single leg, no pain, proper mechanics. and Outcomes: IKDC greater than or equal to 7, ADL-RSI greater than or equal to 50-60 score., Phase 4 to Phase 5 Criteria: Criterion for Progression: Maximum vertical jump without pain or instability., 80% of contralateral on single hop tests., Normalized running., Y-balance - anterior reach: less than 4 cm asymmetry. , Strength: 85% symmetry. and IKDC Question (Global Rating of Knee Function) score of 8 or greater. and Phase 5 to Return to Sport Criteria: Criterion for Progression: Strength: Greater than or equal to 90% symmetry., Hop testin% symmetry with proper mechanics. , Pain free transition to activities and no functional complaints. , Confidence when running, cutting, jumping at full speed. and IKDC Question (Global Rating of Knee Function) of > 9. Patient Goals: regain prior functional status Planned Interventions, Frequency, and Duration: Current Frequency: 2x/week Duration: 12 weeks Total Number of Visits Planned: 24 Planned Treatment Interventions: Therapeutic exercise (64436);Neuromuscular re-education (99523);Manual therapy (26261);Therapeutic activities (60038);Self-custodial management (36278);Gait Training (20084);Patient/Family/Caregiver Education;Body Mechanics Training;General Conditioning PLAN FOR NEXT VISIT: Review correct and progress HEP to tolerance. Continue and progress therex for pain, ROM, strength and swelling following the SCHWARZ protocol and CCRST ACL CarePath. Gait training prn pending physician guidance. Have patient complete ACL-RSI and IKDC questions. Patient demonstrates good understanding of plan of care and treatment. The above goals and plan of care were discussed and agreed upon by patient/family. SUBJECTIVE: Dirk Myers is a 25 year old female seen today for post-op rehab following L ACL reconstruction and menisectomy. Her procedure was outpatient procedure and she has been NWB since surgery with no brace. She reports compliance with HEP throughout the day as often as she can. She has been doing ankle pumps and quad sets only. She reports that she has not had a bowel movement since surgery and is taking stool softener. She reports nausea each morning. She reports waking with pain behind L heel without explanation during the night. She plans to return to work 09/03/21 working from home. She reports that her last dose of prescription pain medication was 08/30/21. 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 [facility] 08-27-2021 Note HNO ID: [id number] Author: Kimberlee Cha APRN.ROBOT PROGRAMMER Service: Transplant Author Type: Nurse Strategic Planner Type: Anesthesia Procedure Notes Filed: 08/27/2021 2:47 PM Note Text: ANESTHESIOLOGY PROCEDURE NOTE Airway General Information Procedure Start Time/Medication Administration: 08/27/2021 2:33 PM Patient location during procedure: OR Patient identity confirmed: arm band Staffing ROBOT PROGRAMMER: Kimberlee Cha APRN.ROBOT PROGRAMMER Performed by: MAGNO Indications and Patient Condition Preoxygenated: yes Indications for airway management: anesthesia anesthesia circuit Method: asleep Final Airway Details Final airway type: supraglottic airway Number of attempts at approach: 1 Final Supraglottic Airway: i-gel Size 4 Seal Adequate: yes SIGNATURE: Kimberlee Cha APRN.ROBOT PROGRAMMER PATIENT NAME: Dirk Myers DATE: August 27, 2021 TIME: 2:46 PM CSN: [id number] [facility] 08-27-2021 Note HNO ID: [id number] Author: Jamaal Maxwell MD Service: ? Author Type: Physician Type: Anesthesia Procedure Notes Filed: 08/27/2021 1:53 PM Note Text: ANESTHESIOLOGY PROCEDURE NOTE Peripheral Nerve Block General Information Procedure Start Time/Medication Administration: 08/27/2021 1:36 PM Procedure End time: 08/27/2021 1:46 PM Patient location during procedure: induction room Timeout Performed Pre-procedure: timeout performed Consent Obtained: Yes Patient identity confirmed: arm band and patient Reason for block: post-op pain management/at surgeon's request Staffing Anesthesiologist: Jamaal Maxwell MD Preparation Sterility Preparation: hand hygiene performed prior to procedure, surgical cap used, mask used, sterile drape used during line insertion, skin prep agent completely dried prior to procedure Site Prep: Chloraprep Pre-Procedure Neuro Exam Location: LUE Sensory: intact Motor: intact Procedure Details Patient Position: supine Monitoring: Pulse OX, EKG and NIBP Block Type Lower Extremity: femoral Laterality: left Injection Technique: single-shot Ultrasound Guided: Yes Image in Chart: yes Local Infiltration: Yes Needle Needle Type: blunt and echogenic Needle Gauge: 20 G Needle Length: 5 cm Needle Localization: ultrasound Assessment Injection assessment: negative aspiration, no paresthesia on injection, incremental injection and local visualized surrounding nerve on ultrasound Medications Administered Dexamethasone sodium phosphate injection (DECADRON), 4 mg ropivacaine (PF) 2 mg/mL (0.2 %) injection (NAROPIN), 10 mL ropivacaine (PF) 5 mg/mL (0.5 %) injection (NAROPIN), 10 mL SIGNATURE: Jamaal Maxwell MD PATIENT NAME: Dirk Myers DATE: August 27, 2021 TIME: 1:50 PM CSN: [id number] [facility] 08-24-2021 Note HNO ID: [id number] Author: Tima Bowden PT Service: ? Author Type: Physical Therapist Type: Progress Notes Filed: 08/24/2021 12:26 PM Note Text: [facility] PHYSICAL THERAPY GAIT TRAINING Dirk Myers is a 25 year old female referred by Dr. Nina Babin with a diagnosis of rupture of anterior cruciate ligament left knee. Onset date: 05/14 2021. Pain level: 4/10. The patient is educated/instructed in the use of crutches for ambulating NWB and WBAT on the left lower extremity. The patient was instructed in ambulation on level surfaces and stairs. Level of assistance needed: supervised. Pt. verbalizes understanding of the precautions and weight bearing status: Yes. Equipment provided: patient has her own crutches. Crutch handout provided:Yes Education on post-op exercises of left ankle pumps,heel slides, heel prop and quad sets. Treatment time: 30 minutes; No Charge for time Therapist: ADAM Oakley, [place] [facility] 07-17-2021 Note HNO ID: [id number] Author: Nina Babin MD Service: ? Author Type: Physician Type: Progress Notes Filed: 07/17/2021 2:48 PM Note Text: Attending Attestation: I have seen and evaluated this patient. I agree with the impression and plan of care as outlined in the Fellow's note. Complete ACL tear with a lateral meniscus ACL pattern root tear and a possible medial meniscus ramp lesion. I have discussed the risks, benefits, alternative procedures, expected outcomes and the length of convalescence. We have also discussed operative versus nonoperative management. Dirk MYERS understands and would like to proceed with surgical intervention. The plan will be for left knee arthroscopically assisted anterior cruciate ligament reconstruction with hamstring autograft, possible partial lateral meniscectomy versus lateral meniscus root repair and possible medial meniscus repair. Torres and Nephew endobutton. Depuy Mitek bioabsorbable intrafix screw and sheath. Torres AND Nephew Amo reamers, Endobutton and Ultrabutton available but not open.We need a large/heavy mallet for this procedure. Combined femoral and sciatic-equivalent nerve blocks. Preoperative antibiotics. Dirk MYERS was offered a surgery at a [facility] facility. Dr. Babin and the patient have discussed in detail the risk of exposure to and/or potential harm posed by the COVID-19 virus with having a surgery at this time versus the risk of delaying the surgery. It is not possible to know either the risk of delaying the surgery or procedure or chance of getting an infection with perfect accuracy, but a joint decision was made between the patient and Dr. Babin to proceed at this time with the scheduled surgery/procedure as indicated on the consent form. Nina Babin MD [facility] Orthopaedic Surgery and Sports Medicine [facility] Sports Medicine manager of development [facility] of Medicine Food Analyst, Orthopaedic Sports Medicine Fellowship [facility] Orthopaedic and Rheumatologic [facility] 07-17-2021 Note HNO ID: [id number] Author: Bang Billingsley MD Service: ? Author Type: Fellow Type: Progress Notes Filed: 07/17/2021 2:48 PM Note Text: New Patient appointment REF: Tima Bowden, [place] History of present illness: Dirk MYERS is a 25 year old female who comes in today with a chief complaint of left knee pain and instability. This pain has been present for 2 months. Pain is located medial and lateral knee with knee twisting. This occurred with the following preceding injury: Fall during soccer 05/14/2021. She felt a pop and had swelling.. Patient has Yes swelling. There is not popping/clicking. There is not locking. There is giving way. There is not night pain. Prior treatment: Physical therapy. 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 (Patient taking differently: Use 2 Sprays in each nostril once daily. As needed) - levonorgestrel (MIRENA) 20 mcg/24 hr (5 years) IUD 1 Each by INTRAUTERINE route one time only. No current facility-administered medications on file prior to visit. FAMILY HISTORY Problem Relation Age of Onset - other (heart disease [Other]) Maternal Grandfather - other (aortitis [Other]) Maternal Grandfather - other (anurysym [Other]) Paternal Grandfather - other (high cholesterol [Other]) Maternal Grandmother - Hypertension Maternal Grandmother - other (gastrointestional issues [Other]) Paternal Grandmother - other (Parkinson's Disease [Other]) Maternal Grandmother Social History Tobacco Use - Smoking status: Never Smoker - Smokeless tobacco: Never Used Substance Use Topics - Alcohol use: Yes Comment: Seldom - Drug use: No REVIEW OF SYSTEMS: CV: No chest pain Pulm: No short of breath HEENT: No head ache General: no fevers, chills, nausea/vomiting, malaise Physical Examination: This is a well appearing, well nourished patient in no acute distress. Patient's head is normocephalic and atraumatic. Patient has white sclera and pink conjunctiva. Mucous membranes are moist. Patient breathes easily and has normal chest wall excursion. Patient has a Normal. affect. Body habitus overweight. Focused exam of the knee: Normal. gait. Knee alignment: Normal. Range of motion is 0-130. There is not Apprehension. Yes effusion.There is medial joint line pain on palpation. There is lateral joint line pain on palpation. There is not pain over the MCL. There is not pain over the lateral ligamentous structures. Teresita's positive . Posterior drawer negative . No laxity on varus stress testing. There is not laxity on valgus stress testing. Gemma's positive. Dial test negative . Contralateral knee exam: Examination of the contralateral knee reveals that there is normal stability, strength, range of motion and no pain on palpation. There is no significant effusion. Sensation grossly intact. Imaging: Magnetic Resonance Imaging of the left knee from [facility] is personally reviewed by me and demonstrates anterior cruciate ligament rupture. There is also concern for a lateral meniscus posterior root tear and possible medial meniscus ramp lesion. Impression: Dirk MYERS is a 25 year old female with left knee anterior cruciate ligament tear, lateral meniscus root tear, medial meniscus tear. We had an extensive discussion regarding the risks and benefits of surgery. This would include left knee arthroscopic assisted anterior cruciate ligament reconstruction with hamstring autograft, possible arthroscopic medial and lateral meniscus repair versus meniscectomy. She has elected to proceed with surgery. Plan: 1. MARIAM Araujo to assist in scheduling surgery 2. Physical therapy recommendation: None 3. Pharmacologic treatment: None 4. Bracing: None 5. Other recommendations: None Bang Billingsley MD (fellow) [facility] 07-12-2021 Note HNO ID: [id number] Author: Tima Bowden PT Service: ? Author Type: Physical Therapist Type: Progress Notes Filed: 07/12/2021 6:48 AM Note Text: Episode Visit Count: 7 Therapist That Will Oversee The Plan Of Care: Tima Bowden PT Start of Care Date: 06/15/21 Onset Date: 05/14/21 Patient Identified by Name and Date of : Yes REHABILITATION AND SPORTS THERAPY PHYSICAL THERAPY DISCONTINUANCE OF CARE PLAN OF CARE UPDATE: Assessment: Dirk MYERS is discontinued from Physical Therapy services due to maximal benefit., medical/psychosocial complications. and Patient/Clinician mutual decision to discontinue current plan of care.. Patient was seen for 7 visits from Start of Care Date: 06/15/21 to 07/12/2021 and treatment included: Therapeutic exercise, Self-custodial management and Patient/Family/Caregiver Education. Pt has likely received maximum benefit from PT. MRI confirmed structural damage to L knee that will most likely require surgical intervention. If surgery is needed, PT will need to save PT for post-op rehab not pre-op rehab. Updated: 07/11/21 Goals for Episode of Care: created on 06/15/21 through 07/27/21 [place] in home exercise program. - met Patient will decrease pain to 0/10 with functional activities to allow patient to improve transfers, standing tolerance for ADLs and stairs. - partially met Patient will increase active ROM of L knee to WFL, symmetrical and pain-free to allow pt to to improve performance of ADLs. - partially met Perform stairs, kneeling, squatting and running without pain. - not met Increased strength of L knee/LE to WFL for resumption of all prior functional activities without pain - not met Reciprocal stair negotiation. - partially met Patient Goals: regain prior functional status for moderate exercise and everyday ADLs - partially met SUBJECTIVE: Patient Reason for Visit: Pt reports that L knee instability persists. She reports that she is capable of negotiating stairs reciprocally but not consistently and that she is still limited on stairs. She reports compliance with HEP 1-2x day. She reports plans to consult with an orthopedic surgeon about her MRI confirmed ACL tear. Pain: Pain Pain Level: (2-3/10) Pain Location: Knee - Left Description: Tightness ( little bit and bothersome ) Frequency: Intermittent Post Treatment Pain Post Treatment Pain Level: No Change PROMIS Scales Higher is Better 06/15/2021 Phys Func - Score 47 (within normal limits) Phys Func - Percentile 38 % Social Roles - Score 52 (within normal limits) Social Role - Percentile 58 % GH Physical - Score 50.8 (Very Good) GH Physical - Percentile 53 % GH Mental - Score 59 (Excellent) GH Mental - Percentile 82 % Self-Eff Symptom - Score 46 (Average) Self-Eff Symptom - Percentile 34 % T-scores: mean of general population = 50. 5 points is clinically meaningfully difference Percentiles provide an indication of how the patient's score ranks in relation to the general population. Higher percentile rankings indicate better function/quality of life. 50th percentile is the average of the general population and indicates half of respondents had a worse score. Lower is Better 06/15/2021 Fatigue - Score 39 (within normal limits) Fatigue - Percentile 86 % T-scores: mean of general population = 50. 5 points is clinically meaningfully difference Percentiles provide an indication of how the patient's score ranks in relation to the general population. Higher percentile rankings indicate better function/quality of life. 50th percentile is the average of the general population and indicates half of respondents had a worse score. OBJECTIVE MEASURES WITH LEVEL OF FUNCTION: LE AROM L Knee Extension: 1 Degrees L Knee Flexion: 121 Degrees LE Strength L Knee Extension (L3): 5/5 L Knee Flexion: 5/5 Gait Gait Observation: Normal TREATMENT: Therapeutic Exercise: 1: Upright bike seat #6, resistance 4 x 5 minutes (no discomfort reported today, subjective collected) 2: supine L heel slides to facilitate L knee flexion ROM 2x12 in pain-free range. 3: supine quad sets 2x10 4: Entire HEP was thoroughly reviewed and continuation encouraged to tolerance. Skilled Intervention: Patient was educated in proper exercise technique and purpose for exercises. Skilled judgment was provided in selection of appropriate interventions. Correct performance of therapeutic exercises was facilitated with verbal, visual and tactile cuing. Patient education as noted. Self-Penitentiary Management: 1: Lengthy discussion with patient regarding her MRI, surgical options, anatomy and pre and post-op procedures explained. A model of the knee was used to answer her questions and explain surgical procedure. Therapist contact information provided. Pt had many questions that therapist answered to her satisfaction. Skilled Intervention: Reviewed patient spe (more content not included)... [facility] 07-06-2021 Note HNO ID: [id number] Author: Tima Bowden PT Service: ? Author Type: Physical Therapist Type: Progress Notes Filed: 07/06/2021 4:19 PM Note Text: Episode Visit Count: 6 Therapist That Will Oversee The Plan Of Care: Tima Bowden PT Start of Care Date: 06/15/21 Onset Date: 05/14/21 Patient Identified by Name and Date of : Yes REHABILITATION AND SPORTS THERAPY PHYSICAL THERAPY TREATMENT NOTE ASSESSMENT: Dirk MYERS demonstrated difficulty with unstable knee and need for surgical intervention per MRI results. She is able to complete all exercises with no increase in pain and pain is 0/10. The patient will continue to benefit from ongoing skilled physical therapy for progression of strength and AROM. PLAN FOR NEXT VISIT: Review, correct and progress HEP to tolerance, prn. Continue with active therex to increase ROM, increased strength/functional stability and facilitate a return to prior functional level. Gentle progression to tolerance. SUBJECTIVE: Patient Reason for Visit: Patent reports she is going to have to have surgery due to ACL injury and possible menicus. She reports feeling about the same currently. Pain: Pain Pain Level: 0 Pain Location: Knee - Left Frequency: Intermittent;With movement Post Treatment Pain Post Treatment Pain Level: No Change Post Treatment Symptoms: fatigue and warm feeling OBJECTIVE MEASURES WITH LEVEL OF FUNCTION: Decrease heel strike left during gait sequence. TREATMENT: Therapeutic Exercise: 1: Upright bike seat #6, resistance 4 x 5 minutes (no discomfort today) 2: supine L heel slides to facilitate L knee flexion ROM 2x12 in pain-free range. 3: supine L SAQ 3 second hold 2x15 with 2# ankle weight 4: supine L SLR 3x10 with 2# ankle weight 5: Bridging 3x15 6: R sidelying L hip abduction JR series 2x1 2each (0-50%, 50-100%, marching and circles) with 2# ankle weight 7: seated L LAQ 3x10 with 2# weight 8: bridging with LEs on ball 2x12 9: Discussed surgeon referral and patient plans to chek her insurance to see who is in her plan. 10: Long sitting left gastroc stretch 3x30 seconds with green strap 11: L leg press 64# 2x10 with emphasis on control. 12: blue band Paloff press 2x10 facing each direction Skilled Intervention: Patient was educated in proper exercise technique and purpose for exercises. Skilled judgment was provided in selection of appropriate interventions. Correct performance of therapeutic exercises was facilitated with verbal cuing. Billing Therapeutic Exercise Treatment Minutes: 39 Total Treatment Time Minutes (timed and untimed codes) : 39 Jahaira Shin, ADAM Bowden, PT [facility] 07-05-2021 Note HNO ID: [id number] Author: Ghada Mccabe RDMS Service: ? Author Type: Highway Maintenance Crew Worker Type: Progress Notes Filed: 07/05/2021 3:26 PM Note Text: Radiology Service Progress Note PATIENT NAME: Dirk VARGHESEN: [id number] DATE OF SERVICE: July 05, 2021 TIME: 3:25 PM PATIENT IDENTITY VERIFICATION COMPLETED USING TWO (2) IDENTIFIERS: Name and Date of confirmed by patient verbally. FALL SCREENING: Has the patient had 2 falls in the last year or 1 fall with injury or currently using an Ambulatory Assistive Device (Walker, Cane, Wheelchair, Crutches, etc.)? No PATIENT GENDER DATA: Female. status: : No status: N/A PATIENT RELEVANT IMPLANT DATA REVIEWED: Not Applicable RADIOLOGY DEPARTMENT: MR; Exam(s) Completed: Lower MSK: Knee, left PERIPHERAL IV DATA: Not applicable SIGNED BY: Ghada Mccabe RDMS RVShirlene July 05, 2021 3:25 PM [facility] 07-04-2021 Note HNO ID: [id number] Author: Tima Bowden PT Service: ? Author Type: Physical Therapist Type: Progress Notes Filed: 07/04/2021 9:55 AM Note Text: Episode Visit Count: 5 Therapist That Will Oversee The Plan Of Care: Tima Bowden PT Start of Care Date: 06/15/21 Onset Date: 05/14/21 Patient Identified by Name and Date of : Yes REHABILITATION AND SPORTS THERAPY PHYSICAL THERAPY TREATMENT NOTE ASSESSMENT: Dirk MYERS demonstrated difficulty with intermittent discomfort and instability and improvements in ROM, strength and exercise tolerance. The patient will continue to benefit from ongoing skilled physical therapy for supervised progression of therex pending MRI results. PLAN FOR NEXT VISIT: Review, correct and progress HEP to tolerance, prn. Continue with active therex to increase ROM, increased strength/functional stability and facilitate a return to prior functional level. Gentle progression to tolerance. SUBJECTIVE: Patient Reason for Visit: Pt reports that overall she is feeling approximately the same. She reports compliance with HEP 1-2x day. She denies any pain to start today. She reports that pushing her foot into her shoe and sit to stand with equal pressure on feet are still painful and stairs cause discomfort. She denies any increased pain with last PT session. She reports working on her core activation but not nearly as often as she would like. Pain: Pain Pain Level: 0 Pain Location: Knee - Left Description: (no pain to start) Frequency: Intermittent (pushing foot into shoe) Post Treatment Pain Post Treatment Pain Level: No Change Post Treatment Pain Location: Knee - Left Post Treatment Pain Description: (fatigue only) Post Treatment Symptoms: Pt reported fatigue during today's session but denied any increase in pain. OBJECTIVE MEASURES WITH LEVEL OF FUNCTION: LE AROM L Knee Extension: 3 Degrees L Knee Flexion: 123 Degrees TREATMENT: Therapeutic Exercise: 1: Upright bike seat #6, resistance 4 x 5 minutes (no discomfort today) 2: supine L heel slides to facilitate L knee flexion ROM 2x12 in pain-free range. 3: supine L SAQ 3 second hold 2x15 with 2# ankle weight 4: supine L SLR 3x10 with 2# ankle weight 5: Bridging 3x15 6: R sidelying L hip abduction JR series 1x12 each (0-50%, 50-100%, marching and circles) with 2# ankle weight 7: seated L LAQ 3x10 with 2# weight 8: bridging with LEs on ball 2x15 9: TA stabilization throughout the day reviewed and encouraged 10: Long sitting left gastroc stretch 3x30 seconds with green strap 11: L leg press 64# 2x10 with emphasis on control. 12: blue band Paloff press 1x10 facing each direction Skilled Intervention: Patient was educated in proper exercise technique and purpose for exercises. Skilled judgment was provided in selection of appropriate interventions. Correct performance of therapeutic exercises was facilitated with verbal, visual and tactile cuing. Patient education as noted. Billing Therapeutic Exercise Treatment Minutes: 45 Total Treatment Time Minutes (timed and untimed codes) : 45 Tima Bowden PT [facility] 06-29-2021 Note HNO ID: [id number] Author: Tima Bowden PT Service: ? Author Type: Physical Therapist Type: Progress Notes Filed: 06/29/2021 6:07 PM Note Text: Episode Visit Count: 4 Therapist That Will Oversee The Plan Of Care: Tima Bowden PT Start of Care Date: 06/15/21 Onset Date: 05/14/21 Patient Identified by Name and Date of : Yes REHABILITATION AND SPORTS THERAPY PHYSICAL THERAPY TREATMENT NOTE ASSESSMENT: Dirk MYERS demonstrated difficulty with sit to stand today due to pain and this was stopped. She had good tolerance to other exercises with no increase in pain. The patient will continue to benefit from ongoing skilled physical therapy for progression of strength. PLAN FOR NEXT VISIT: Review, correct and progress HEP to tolerance, prn. Continue with active therex to increase ROM, increased strength/functional stability and facilitate a return to prior functional level. Gentle progression to tolerance. SUBJECTIVE: Patient Reason for Visit: Patient reports the knee is feeling about the same. She reports 1 episode of calf cramping and she did some stretching and it went away. She reports good tolerance to last therapy. Pain: Pain Pain Level: 0 Pain Location: Knee - Left Frequency: Intermittent;With movement Post Treatment Pain Post Treatment Pain Level: No Change Post Treatment Symptoms: pain only with attempts at sit to stand and that resolved. OBJECTIVE MEASURES WITH LEVEL OF FUNCTION: Sit to stand caused increase pain today and was stopped. TREATMENT: Therapeutic Exercise: 1: Upright bike seat #6, resistance 4 x 5 minutes (uncomfortable at top range) 2: supine L heel slides to facilitate L knee flexion ROM 2x12 in pain-free range. 3: supine L SAQ 3 second hold 2x15 4: supine L SLR 3x12 5: Gluteal bridging 3x15 6: R sidelying L hip abduction JR series 2x12 each (0-50%, 50-100%, marching and circles) 7: seated L LAQ 2 second hold 3x12 without weight 8: repeated sit to stand x2 with increase pain and this was stopped 9: Patient with questions about knee and and she was givene answers per her sstisfaction. 10: Long sitting left gastroc stretch 3x30 seconds 11: *Seated TA 3 seond hold x 10 (education to do 3-5 times throughout the day, sit , stand or walking) 12: blue band Paloff press 1x10 facing each direction Skilled Intervention: Patient was educated in proper exercise technique and purpose for exercises. Reviewed and educated patient on additions/changes for home exercise program and patient instructed to do seated, standing or walking TA throughout her day.. Skilled judgment was provided in selection of appropriate interventions. Correct performance of therapeutic exercises was facilitated with verbal and visual cuing. Billing Therapeutic Exercise Treatment Minutes: 45 Total Treatment Time Minutes (timed and untimed codes) : 45 ADAM Oakley PT [facility] 06-29-2021 Note HNO ID: [id number] Author: Tima Bowden PT Service: ? Author Type: Physical Therapist Type: Progress Notes Filed: 06/29/2021 6:07 PM Note Text: [facility] 06-26-2021 Note HNO ID: [id number] Author: Tima Bowden PT Service: ? Author Type: Physical Therapist Type: Progress Notes Filed: 06/26/2021 9:04 AM Note Text: Episode Visit Count: 3 Therapist That Will Oversee The Plan Of Care: Tima Bowden PT Start of Care Date: 06/15/21 Onset Date: 05/14/21 Patient Identified by Name and Date of : Yes REHABILITATION AND SPORTS THERAPY PHYSICAL THERAPY TREATMENT NOTE ASSESSMENT: Dirk MYERS demonstrated difficulty with slight pain at top range with upright bike. She has intermittent feeling of left leg giving out and has no had falls. She was able to progress repetitions and hold times with exercises today with no increase in pain. The patient will continue to benefit from ongoing skilled physical therapy for progression of left lower extremity strength and core. PLAN FOR NEXT VISIT: Review, correct and progress HEP to tolerance, prn. Continue with active therex to increase ROM, increased strength/functional stability and facilitate a return to prior functional level. Gentle progression to tolerance. SUBJECTIVE: Patient Reason for Visit: Patient reports feeling about the same. Patient reports the knee gives out intermittently and has not had a fall. Pain: Pain Pain Level: 0 Pain Location: Knee - Left Frequency: Intermittent;With movement Post Treatment Pain Post Treatment Pain Level: No Change Post Treatment Symptoms: no pain OBJECTIVE MEASURES WITH LEVEL OF FUNCTION: Decrease heel strike left during gait. TREATMENT: Therapeutic Exercise: 1: Upright bike seat #6 x 5 minutes (uncomfortable at top range) 2: supine L heel slides to facilitate L knee flexion ROM 2x10 in pain-free range. 3: supine L SAQ 2-3 second hold 2x12 4: supine L SLR 3x10 5: Gluteal bridging 3x12 6: R sidelying L hip abduction JR series 2x10 each (0-50%, 50-100%, marching and circles) 7: seated L LAQ 2 second hold 3x12 without weight 8: repeated sit to stand 2x12 9: Supine left quad sets 2-3 second hold 2x10 (instruction on gentle muscle contraction.) 10: Education to increase reps to 12-15 reps and increase hold time 2-3 second with SAQ and LAQ Skilled Intervention: Patient was educated in proper exercise technique and purpose for exercises. Skilled judgment was provided in selection of appropriate interventions. Correct performance of therapeutic exercises was facilitated with verbal and visual cuing. Patient education as noted. Billing Therapeutic Exercise Treatment Minutes: 38 Total Treatment Time Minutes (timed and untimed codes) : 38 Jahaira Shin PTA Tima Bowden PT [facility] 06-21-2021 Note HNO ID: [id number] Author: Tima Bowden PT Service: ? Author Type: Physical Therapist Type: Progress Notes Filed: 06/21/2021 12:14 PM Note Text: Episode Visit Count: 2 Therapist That Will Oversee The Plan Of Care: Tima Bowden PT Start of Care Date: 06/15/21 Onset Date: 05/14/21 Patient Identified by Name and Date of : Yes REHABILITATION AND SPORTS THERAPY PHYSICAL THERAPY TREATMENT NOTE ASSESSMENT: Dirk Jimi SEAMANBRUNO demonstrated difficulty with pain in L knee on bike and improvements in exercise tolerance. The patient will continue to benefit from ongoing skilled physical therapy for supervised progression of therex to maximize L LE function. PLAN FOR NEXT VISIT: Review, correct and progress HEP to tolerance, prn. Continue with active therex to increase ROM, increased strength/functional stability and facilitate a return to prior functional level. Gentle progression to tolerance. SUBJECTIVE: Patient Reason for Visit: Pt reports that an MRI has been ordered for her L knee and she needs to schedule this. She reports compliance with HEP 2x day. She reports that overall her L knee feels approximately the same as it did at evaluation last week. She reports that her activity level has increased and as a result she is noticing more functional difficulties but she does not attribute this to a worsening of her condition. Pt reports some fear and anxiety about her L knee condition. Pt asked if it would be appropriate for her to mow her lawn that is hilly. Pain: Pain Pain Level: 3 Pain Location: Knee - Left Description: Sharp (short duration) Frequency: Intermittent Post Treatment Pain Post Treatment Pain Level: No Change Post Treatment Pain Location: Knee - Left Post Treatment Pain Description: (no increase in pain) Post Treatment Symptoms: During and after today's session, pt reported that she received a good workout but she denied any increase in pain after. She did report some mild pain with end range flexion of L knee on stationary bike. OBJECTIVE MEASURES WITH LEVEL OF FUNCTION: TREATMENT: Therapeutic Exercise: 1: Upright bike seat #5 x6 minutes 2: supine L heel slides to facilitate L knee flexion ROM 2x10 in pain-free range. 3: supine L SAQ 2x10 without weight 4: supine L SLR 3x10 5: bridging 2x10 6: *R sidelying L hip abduction JR series 2x10 each (0-50%, 50-100%, marching and circles) 7: seated L LAQ 3x10 without weight 8: repeated sit to stand 2x10 Skilled Intervention: Patient was educated in proper exercise technique and purpose for exercises. Reviewed and educated patient on additions/changes for home exercise program as above (*) Skilled judgment was provided in selection of appropriate interventions. Provided written instruction for home exercise program to facilitate proper performance and compliance. Correct performance of therapeutic exercises was facilitated with verbal, visual and tactile cuing. Patient education as noted. Pt was advised that it would be best if she did not mow her lawn right now due to it being hilly. Billing Therapeutic Exercise Treatment Minutes: 45 Total Treatment Time Minutes (timed and untimed codes) : 45 Tima Bowden PT [facility] 06-15-2021 Note HNO ID: [id number] Author: Tima Bowden PT Service: ? Author Type: Physical Therapist Type: Progress Notes Filed: 06/15/2021 5:29 PM Note Text: Episode Visit Count: 1 Therapist That Will Oversee The Plan Of Care: Tima Bowden PT Start of Care Date: 06/15/21 Onset Date: 05/14/21 Patient Identified by Name and Date of : Yes REHABILITATION AND SPORTS THERAPY PHYSICAL THERAPY EVALUATION PLAN OF CARE: Assessment: Dirk MYERS presents with the diagnosis of L knee pain, swelling and functional instability following soccer injury. She presents with impairments of pain, ROM limits and functional instability. PROMIS? (Patient-Reported Outcomes Measurement Information System) scores were reviewed and all domains identified as within normal limits. She may benefit from skilled therapy services to improve pain, ROM and functional stability of L knee. Prognosis: Good Good due to: current objective clinical presentation;good overall health status;acuteness of condition;good support system/ coping skills;Prognosis may be limited Prognosis may be limited by: clinical presentation Goals for Episode of Care: created on 06/15/21 through 07/27/21 [place] in home exercise program. Patient will decrease pain to 0/10 with functional activities to allow patient to improve transfers, standing tolerance for ADLs and stairs. Patient will increase active ROM of L knee to WFL, symmetrical and pain-free to allow pt to to improve performance of ADLs. Perform stairs, kneeling, squatting and running without pain. Increased strength of L knee/LE to WFL for resumption of all prior functional activities without pain Reciprocal stair negotiation. Patient Goals: regain prior functional status for moderate exercise and everyday ADLs Planned Interventions, Frequency, and Duration: Current Frequency: 2x/week Duration: 6 weeks Total Number of Visits Planned: 12 Planned Treatment Interventions: Therapeutic exercise (67087);Neuromuscular re-education (84336);Manual therapy (03030);Therapeutic activities (51295);Self-custodial management (23679);Gait Training (34152);Patient/Family/Caregiver Education;Body Mechanics Training PLAN FOR NEXT VISIT: Review, correct and progress HEP to tolerance, prn. Continue with active therex to increase ROM, increased strength/functional stability and facilitate a return to prior functional level. Patient demonstrates good understanding of plan of care and treatment. The above goals and plan of care were discussed and agreed upon by patient/family. SUBJECTIVE: Dirk MYERS is a 25 year old female seen today for intermittent pain and instability in L knee following soccer injury 1 month ago. She was playing soccer and planted L foot and L knee gave out. She reports modifying her activity level and wearing brace which was helpful but overall she is still having pain and limitations. 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 Pain: Pain Pain Level: 6 (0/10 at rest, 6/10 at worst) Pain Location: Knee - Left (medial and posterior aspect) Description: Sharp;Aching Frequency: Intermittent (short quick duration of pain with certain movements) Post Treatment Pain Post Treatment Pain Level: No Change PROMIS Scales Higher is Better 06/15/2021 Phys Func - Score 47 (within normal limits) Phys Func - Percentile 38 % Social Roles - Score 52 (within normal limits) Social Role - Percentile 58 % GH Physical - Score 50.8 (Very Good) GH Physical - Percentile 53 % GH Mental - Score 59 (Excellent) GH Mental - Percentile 82 % Self-Eff Symptom - Score 46 (Average) Self-Eff Symptom - Percentile 34 % T-scores: mean of general population = 50. 5 points is clinically meaningfully difference Percentiles provide an indication of how the patient's score ranks in relation to the general population. Higher percentile rankings indicate better function/quality of life. 50th percentile is the average of the general population and indicates half of respondents had a worse score. Lower is Better 06/15/2021 Fatigue - Score 39 (within normal limits) Fatigue - Percentile 86 % T-scores: mean of general population = 50. 5 points is clinically meaningfully difference Percentiles provide an indication of how the patient's score ranks in relation to the general population. Higher percentile rankings indicate better function/quality of life. 50th (more content not included)... [facility] 05-28-2021 Note HNO ID: [id number] Author: Lukasz Damico APRN.RECEPTION INTERVIEWER, DNP Service: ? Author Type: Nurse Practitioner Type: Progress Notes Filed: 05/28/2021 1:01 PM Note Text: Chief Complaint Patient presents with: Recheck: knee pain HPI Dirk MYERS is a 25 year old female who presents here today for follow up of left knee swelling. This is an established patient. I had seen the patient 2 weeks ago for knee swelling Knee injury: Playing soccer 10 days ago she planted and left knee gave out.. Denies hearing a pop or snap. Knee buckled towards the outside. States that evening had some minor swelling. Not a significant amount of pain. She is taken some Motrin with relief. She is been limiting her activity. Limping on the left side. States able to move the knee. No use of crutches. She was able to walk off the field after the injury. She was able to bear weight after the injury. Denies feeling instability of the knee. Denies redness. Today -has been wearing a knee brace since I last seen her. Symptoms have improved but still has mild medial aspect left knee discomfort. Discomfort with squatting. She was able to mow her lawn with mild discomfort. Denies swelling. No redness. Feels to be improving but only mildly. Past medical history, appointments, medications, allergies reviewed 05/17/2021 Previous Medical History PAST MEDICAL HISTORY Diagnosis Date - Right ankle injury sprain Previous Surgical History PAST SURGICAL HISTORY Procedure Laterality Date - NONE Family History FAMILY HISTORY Problem Relation Age of Onset - other (heart disease [Other]) Maternal Grandfather - other (aortitis [Other]) Maternal Grandfather - other (anurysym [Other]) Paternal Grandfather - other (high cholesterol [Other]) Maternal Grandmother - Hypertension Maternal Grandmother - other (gastrointestional issues [Other]) Paternal Grandmother - other (Parkinson's Disease [Other]) Maternal Grandmother Patient Allergies ALLERGIES No Known Allergies Current Medications Current Outpatient Medications on File Prior to Visit Medication Sig - fluticasone (FLONASE) 50 mcg/actuation nasal spray Use 2 Sprays in each nostril once daily. (Patient taking differently: Use 2 Sprays in each nostril once daily. As needed) - levonorgestrel (MIRENA) 20 mcg/24 hr (5 years) IUD 1 Each by INTRAUTERINE route one time only. No current facility-administered medications on file prior to visit. Social History Social History Tobacco Use - Smoking status: Never Smoker - Smokeless tobacco: Never Used Substance Use Topics - Alcohol use: Yes Comment: Seldom - Drug use: No Review of Symptoms PAIN ASSESSMENT: CURRENTLY HAVING no pain GENERAL: No weight loss, malaise or fevers. No fatigue MUSCULOSKELETAL: Negative for generalized joint pain, swelling, back pain or muscle aches SKIN: Negative for lesions, rash, and itching EXAM: BP 118/66 Pulse 87 Temp 36.8 ?C (98.2 ?F) Resp 16 Wt 76.2 kg (168 lb) LMP 08/05/2014 SpO2 98% BMI 30.14 kg/m? General Appearance: Well appearing, alert, in no acute distress, well-hydrated, well nourished. Obese Skin: Skin color, texture, turgor normal, no suspicious rashes or lesions. Head: Normocephalic, no masses, lesions, or abnormalities. Extremities: No deformities, edema, skin discoloration, clubbing or cyanosis. Knee Physical Exam: Knee Exam Left and Right: Inspection / Palpation LE (R/L): non-tender bilaterally. No crepitus. No masses. No left knee swelling. Knee ROM (R/L): 0-130 / 0-130 Knee A/P Stability: No laxity or excessive ROM Knee tests: Teresiat - Negative (ANT/POST) Drawer - Negative Gemma test: + Squat test: + Negative Thessaly Knee M/L Stability (R): Varus (0+/0+); Valgus (0+/0+) Patella: Nontender, No bruising, deformity or excessive movement/tracking Strength bilat LE: 5/5, plantar flexion intact Sensation: Subjective normal distal sensation bilaterally Vasculature: <2 second capillary bilaterally LE Skin: no rashes or lesions bilaterally Psych: Attitude - cooperative, easily engaged in conversation Appearance - normal, hygiene and grooming appropriate Affect - euthymic, normal mood Mental status: Alert, attentive. Speech is clear and fluent with good repetition, comprehension Coordination: There are no abnormal or extraneous movements. Gait/Stance: Posture is normal. Gait is limping on the left. Health Maintenance List DEPRESSION SCREENING Never done HEPATITIS C SCREENING Never done HIV SCREENING Never done PAP TESTING Never done DTAP,TDAP,TD(7 - Td or Tdap) due on 08/25/2018 INFLUENZA(1) due on 06/27/2021 HPV VACCINE Completed MENINGOCOCCAL CONJUGATE Completed COVID-19 VACCINE Completed Data reviewed Last 5 Encounter BP Readings: Date: BP: 05/17/2021 120/70 10/25/2015 104/68 06/14/2015 106/80 10/21/2014 128/64 08/09/2014 108/72 BMI Readings from Last 5 Encounters: 05/28/21 : (more content not included)... [facility] 05-17-2021 Note HNO ID: [id number] Author: RT Gennaro(R) Service: Radiology Author Type: Cost Recorder Type: Progress Notes Filed: 05/17/2021 12:06 PM Note Text: Radiology Service Progress Note PATIENT NAME: Dirk MYERS DATE OF SERVICE: May 17, 2021 TIME: 12:06 PM PATIENT IDENTITY VERIFICATION COMPLETED USING TWO (2) IDENTIFIERS: Name and Date of confirmed by patient verbally. FALL SCREENING: Has the patient had 2 falls in the last year or 1 fall with injury or currently using an Ambulatory Assistive Device (Walker, Cane, Wheelchair, Crutches, etc.)? No PATIENT GENDER DATA: Female. status: : No status: NO. PATIENT RELEVANT IMPLANT DATA REVIEWED: Not Applicable RADIOLOGY DEPARTMENT: General X-ray: Exam(s) Completed: Lower Extremity X-Ray(s): Knee, AP / LAT Left and Wt. Bearing PERIPHERAL IV DATA: Not applicable SIGNED BY: RT Gennaro(R) May 17, 2021 12:06 PM [facility] 05-17-2021 Note HNO ID: [id number] Author: Lukasz Damico APRN.BRANDON, KYLIE Service: ? Author Type: Nurse Practitioner Type: Progress Notes Filed: 05/17/2021 4:36 PM Note Text: Chief Complaint Patient presents with: Knee Pain: left knee HPI Dirk MYERS is a 25 year old female who presents here today for a history of knee pain on left . This is an unestablished patient. No primary care provider on file.. This is a new patient to me. Denies any recent urgent care visits, ER visits or hospitalizations. Knee injury: Playing soccer she planted and left knee gave out.. Denies hearing a pop or snap. Knee buckled towards the outside. States that evening had some minor swelling. Not a significant amount of pain. She is taken some Motrin with relief. She is been limiting her activity. Limping on the left side. States able to move the knee. No use of crutches. She was able to walk off the field after the injury. She was able to bear weight after the injury. Denies feeling instability of the knee. Denies redness. Past medical history, appointments, medications, allergies reviewed 05/17/2021 Previous Medical History PAST MEDICAL HISTORY Diagnosis Date - Right ankle injury sprain Previous Surgical History PAST SURGICAL HISTORY Procedure Laterality Date - NONE Family History FAMILY HISTORY Problem Relation Age of Onset - other (heart disease [Other]) Maternal Grandfather - other (aortitis [Other]) Maternal Grandfather - other (anurysym [Other]) Paternal Grandfather - other (high cholesterol [Other]) Maternal Grandmother - Hypertension Maternal Grandmother - other (gastrointestional issues [Other]) Paternal Grandmother - other (Parkinson's Disease [Other]) Maternal Grandmother Patient Allergies ALLERGIES No Known Allergies Current Medications Current Outpatient Medications on File Prior to Visit Medication Sig - fluticasone (FLONASE) 50 mcg/actuation nasal spray Use 2 Sprays in each nostril once daily. (Patient taking differently: Use 2 Sprays in each nostril once daily. As needed) - levonorgestrel (MIRENA) 20 mcg/24 hr (5 years) IUD 1 Each by INTRAUTERINE route one time only. No current facility-administered medications on file prior to visit. Social History Social History Tobacco Use - Smoking status: Never Smoker - Smokeless tobacco: Never Used Substance Use Topics - Alcohol use: Yes Comment: Seldom - Drug use: No Review of Symptoms PAIN ASSESSMENT: CURRENTLY HAVING no pain GENERAL: No weight loss, malaise or fevers. No fatigue MUSCULOSKELETAL: Negative for generalized joint pain, swelling, back pain or muscle aches SKIN: Negative for lesions, rash, and itching EXAM: BP 120/70 Pulse 78 Temp 36.7 ?C (98 ?F) Resp 14 Wt 76.7 kg (169 lb) LMP 08/05/2014 SpO2 98% BMI 30.32 kg/m? General Appearance: Well appearing, alert, in no acute distress, well-hydrated, well nourished. Obese Skin: Skin color, texture, turgor normal, no suspicious rashes or lesions. Head: Normocephalic, no masses, lesions, or abnormalities. Extremities: No deformities, edema, skin discoloration, clubbing or cyanosis. Knee Physical Exam: Knee Exam Left and Right: Inspection / Palpation LE (R/L): non-tender bilaterally. No crepitus. No masses. Mild left knee swelling. Knee ROM (R/L): 0-130 / 0-130 Knee A/P Stability: No laxity or excessive ROM Knee tests: Teresita - Negative (ANT/POST) Drawer - Negative Gemma test: Negative Squat test: + Knee M/L Stability (R): Varus (0+/0+); Valgus (0+/0+) Patella: Nontender, No bruising, deformity or excessive movement/tracking Strength bilat LE: 5/5, plantar flexion intact Sensation: Subjective normal distal sensation bilaterally Vasculature: <2 second capillary bilaterally LE Skin: no rashes or lesions bilaterally Psych: Attitude - cooperative, easily engaged in conversation Appearance - normal, hygiene and grooming appropriate Affect - euthymic, normal mood Mental status: Alert, attentive. Speech is clear and fluent with good repetition, comprehension Coordination: There are no abnormal or extraneous movements. Gait/Stance: Posture is normal. Gait is limping on the left. Health Maintenance List DEPRESSION SCREENING Never done HEPATITIS C SCREENING Never done HIV SCREENING Never done PAP TESTING Never done DTAP,TDAP,TD(7 - Td or Tdap) due on 08/25/2018 INFLUENZA(1) due on 06/27/2021 HPV VACCINE Completed MENINGOCOCCAL CONJUGATE Completed COVID-19 VACCINE Completed Data reviewed Last 5 Encounter BP Readings: Date: BP: 05/17/2021 120/70 10/25/2015 104/68 06/14/2015 106/80 10/21/2014 128/64 08/09/2014 108/72 BMI Readings from Last 5 Encounters: 05/17/21 : 30.32 kg/m? 10/25/15 : 30.14 kg/m? (93 %, Z= 1.50)* 04/21/13 : 25.92 kg/m? (87 %, Z= 1.13)* 04/18/11 : 25.45 kg/m? (89 %, Z= 1.24)* 08/25/08 : 23.79 kg/m? (91 %, Z= 1.31)* * Growth percentiles are based on CDC (Girls, 2-2 (more content not included)... 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 Advance Directive(s) 08/09/2021 12:59 PM Additional Source Comments INFORMATION SOURCE (unrecogn ized section and content) DATE CREATED AUTHOR AUTHOR'S OR[facility]IZ ATION [facility] DATE CREATED AUTHOR AUTHOR'S ORGANIZ ATION 03/25/2022 [facility] DATE CREATED AUTHOR AUTHOR'S ORGANIZ ATION 05/16/2023 [facility] Source Comments (unrecognize d section and content) In the event this informatio n is protected by the Federal Confidentiality of Alcohol and Drug Abuse Patient Records regulations: The Federal rules restrict any use of the information to criminally investigate or prosecute any alcohol or drug abuse patient.[facility] the event this information is protected by the Federal Confidentiality of Alcohol and Drug Abuse Patient Records regulations: The Federal rules restrict any use of the information to criminally investigate or prosecute any alcohol or drug abuse patient.[facility] Reason for Visit (unrecogniz ed section and content) FOR RECORDS PERTAINING TO PATIENTS WHO ARE OR HAVE BEEN ENROLLED IN A CHEMICAL DEPENDENCY/SUBSTANCEABUSE PROGRAM, SOME INFORMATION MAY BE OMITTED. This clinical summary was aggregated from multiple sources. Caution should be exercised in using it in the provision of clinical care. This summary normalizes information from multiple sources, and as a consequence, information in this document may materially change the coding, format and clinical context of patient data. In addition, data may be omitted in some cases. CLINICAL DECISIONS SHOULD BE BASED ON THE PRIMARY CLINICAL RECORDS. [facility] [facility]. provides no warranty or guarantee of the accuracy or completeness of information in this document.
== END | disposition home or self-care (01) ==
LOC: US 14:06
PROVIDERS: Referring Provider Registered Nurse; Visit Provider Registered Nurse
DX: Z30.431 Encounter for routine checking of intrauterine contraceptive device (principal)
CPT/HCPCS: 76830

== ENCOUNTER → 2025-09-14 | Outpatient (CLI) | payer OTHER, SELFPAY | END | disposition home or self-care (01) | LOC: LABSPEC 16:36 | PROVIDERS: Visit Provider Nurse Practitioner Family | DX: Z12.4 Encounter for screening for malignant neoplasm of cervix (principal) | CPT/HCPCS: 88175; G0145 ==

== ENCOUNTER → 2025-10-14 | Outpatient (CLI) | payer OTHER, SELFPAY ==
[2025-10-14 17:31] LABS: Cholesterol 156 mg/dL (<=200); Low Density Lipoprotein Calc. 84 mg/dL; Triglycerides 60 mg/dL; Very Low Density Lipoprotein 12 mg/dL (5-40); cholesterol:hdl ratio screen 2.60
[2025-10-14 17:34] LABS: AST(SGOT) 26 U/L (<=31); Alanine Aminotransfer ALT/SGPT 23 U/L (<=34); Albumin, Serum 4.7 g/dL (3.5-5.0); Alkaline Phosphatase 55 U/L (35-104); Anion Gap 12 (5-15); BUN 15 mg/dL (4-19); BUN/Creat Ratio 20.5 RATIO (10-20); Calcium,Total 9.8 mg/dL (7.6-11.0); Carbon Dioxide 23.5 mmol/L (21.0-32.0); Chloride 103 mmol/L (98-108); Globulin 3.2 g/dL (2.2-4.2); Glucose 84 mg/dL (70-99); Potassium 3.9 mmol/L (3.3-5.1)
[2025-10-14 17:35] LABS: Hematocrit 44.4 % (37-47); Hemoglobin 15.2 g/dL (12.0-15.0); Immature Granulocytes Count 0.010 X10^3/uL (0.0-0.0); Mean Corp Hgb Conc 34.2 g/dL (32-36); Mean Corpuscular Volume 90.4 fL (81-99); Mean Platelet Vol. 9.4 fl (6.2-12.0); NRBC Flagged by Analyzer 0 % (0-5); Platelet Count 305 K/mm3 (150-450); RBC Distribution Width CV 13.2 % (11.6-14.6); RBC Distribution Width SD 43.7 fl (35.1-43.9); Red Blood Count 4.91 M/mm3 (4.2-5.4); White Blood Count 7.2 K/mm3 (4.4-11.0)
== END | disposition home or self-care (01) ==
LOC: LAB 15:11
PROVIDERS: PCP Internal Medicine; Referring Provider Internal Medicine; Visit Provider Internal Medicine
DX: Z00.00 Encounter for general adult medical examination without abnormal findings (principal); R61 Generalized hyperhidrosis
CPT/HCPCS: 36415; 80053; 80061; 84439; 84443; 85025; 85652